=== PATIENT | male | born 1940 | race Caucasian/White ===

== ENCOUNTER 2022-01-18 10:32 | Emergency (ER) | payer MEDICARE, SELFPAY ==
--- NOTE | 2022-01-18 | CRLHL7_ITS ---
For Patients: As a result of the Cures Act, medical imaging exams and procedure reports are released immediately into your electronic medical record. You may view this report before your referring provider. If you have questions, please contact your health care provider. DATE: 01/18/2022. CLINICAL HISTORY: Vertigo and dizziness for several days. TECHNIQUE: Standard helical CT image acquisition through the head and neck was performed after intravenous contrast bolus enhancement. Multiplanar reconstructed images were performed and interpreted. COMPARISON: None available. FINDINGS: There is irregular atherosclerotic plaque within the aortic arch. The origins of the great vessels from the aortic arch are patent, noting mild to moderate stenosis at the origin of the left subclavian artery. Severe and moderate to severe stenosis at the origins of the left and right vertebral arteries, respectively. The common carotid arteries are patent. There is mild (<50%) atherosclerotic stenoses of the bilateral proximal ICAs by NASCET criteria. NASCET criteria. The more distal cervical segments of the internal carotid arteries are patent. The cervical segments of the vertebral arteries are patent. No intracranial proximal large vessel occlusion. Intracranial atherosclerotic disease with short-segment mild luminal stenoses of the proximal and mid P2 segments of the bilateral posterior cerebral arteries. No evidence of cerebral aneurysm or findings to suggest an arteriovenous shunting lesion. IMPRESSION: 1. Scattered intracranial atherosclerotic disease without proximal large vessel occlusion or flow-limiting luminal stenosis. 2. Mild (<50%) atherosclerotic stenoses of the bilateral proximal ICAs by NASCET criteria. 3. 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 Please note that all CT scans at this facility use dose modulation, iterative reconstruction, and/or weight-based dosing when appropriate to reduce radiation dose to as low as reasonably achievable. Dictated by Kirk Briscoe MD @ 01/18/2022 1:19:11 PM (Electronically Signed)
[2022-01-18 10:40] VITALS: BP 156/80; PULSE 77; RESP 18; TEMP 36.7; O2SAT 94; BMI 34.0
--- OUTSIDE RECORDS SUMMARY | 2022-01-18 11:14 | XMS_ITS | Encounter Summary ---
:1940 Author Organization [facility] Address [address] [place] [address] Care Team Providers Name Role Phone Unavailable Primary Care Provider Unavailable Reason for Referral Radiation Therapy (Routine) - Closed Specialty Diagnoses / Procedures Referred By Contact Refer red To Contact Diagnoses Primary Malignant Neoplasm Of Prostate (HCC) Enoch Beavers M.D. [facility] Procedures Management Visit [address] [place] [phone] Referral ID Status Reason Start Date Expiration Date Visits Requ ested Visits Authorized [id number] Closed 01/11/2021 01/11/2022 4 4 HEALTH AIDE CAREGIVER Reason for Visit Radiation Therapy (Routine) - Closed Specialty Diagnoses / Procedures Referred By Contact Refer red To Contact Diagnoses Primary Malignant Neoplasm Of Prostate (HCC) Enoch Beavers M.D. [facility] Procedures Management Visit [address] [place] [phone] Referral ID Status Reason Start Date Expiration Date Visits Requ ested Visits Authorized [id number] Closed 01/11/2021 01/11/2022 4 4 Encounter Details Date Type Department Care Team Description 04/11/2021 Hospital Encounter Department of Enoch Beavers Malignant Radiation Oncology [place] Neoplasm Of Prostate in [place], [address] [facility] (HCC) [place], [place] [address] [facility] [address] [place], [place] [phone] (Work) [phone] Social History Tobacco Use Types Packs/Day Years Used Date Smoking Tobacco: Never Assessed Sex Assigned at Date Recorded Not on file documented as of this encounter Last Filed Vital Signs Vital Sign Reading Time Taken Comments Blood Pressure - - Pulse - - Temperature 36.6 ??C (97.8 ??F) 04/11/2021 9:10 AM HOME HEALTH AIDE CAREGIVER Respiratory Rate - - Oxygen Saturation - - Inhaled Oxygen Concentration - - Weight 108 kg (237 lb 7 oz) 04/11/2021 9:10 AM HOME HEALTH AIDE CAREGIVER Height - - Body Mass Index 34.07 01/11/2021 3:00 PM CDT documented in this encounter Medications at Time of Discharge Medication Sig Dispensed Refills Start Date End Date acetaminophen (TYLENOL 8 Take 650 mg by mouth 0 HR) 650 mg ER tablet every morning. aspirin [address] tablet Take 81 mg by mouth. 0 betamethasone 0 03/01/2021 dipropionate, augmented, (DIPROLENE) 0.05 % cream coenzyme Q10 (CO Q-10) Take 10 mg by mouth. 0 10 mg capsule metFORMIN XR metformin ER 500 mg tablet,extended release 24 hr 0 07/13/2020 (GLUCOPHAGE-XR) 500 mg TAKE 1 TABLET BY MOUTH TWIC E A DAY . FOLLOWUP IN 2020. 24 hr tablet multivitamin tablet Take 1 tablet by mouth 0 daily. pantoprazole (PROTONIX) pantoprazole 40 mg tablet,delayed release 0 05/12/2012 40 mg EC tablet TAKE 1 TABLET BY MOUTH DAILY. rosuvastatin (CRESTOR) Take 10 mg by mouth 0 10 mg tablet daily. valsartan-hydroCHLOROthi valsartan 80 mg-hydrochlorothiazide 12.5 mg tablet 0 azide (DIOVAN-HCT) TAKE 1 TABLET BY MOUTH EVERY DAY 80-12.5 mg per tablet documented as of this encounter Progress Notes Enoch Beavers M.D. - 04/11/2021 9:15 AM CST SUBJECTIVE REASON FOR VISIT Evaluation for side effects while receiving radiation treatment for 1. Primary Malignant Neoplasm Of Prostate (HCC) SUPERVISED BY: Enoch Beavers M.D. ([id number]) HISTORY OF PRESENT ILLNESS Mr. Rudy Tejada is an 81 y.o. male with adenocarcinoma of the prostate. He is now undergoing radiotherapy. Treatment Course: 1x Prostate Plan ID Fractions Dose / Fraction (cGy) Dose Treated (cGy) Dose Planned (cGy) First Treatment Last Treatment Elapsed Days F1_Prostate 300 1500 6000 04/05/2021 04/11/2021 6 Course Summary 04/05/2021 04/11/2021 6 The patient was seen and examined today with Dr. Beavers. The patient reports that he is doing well. He feels fatigue in the morning. After treatment he eats meal and then fatigue improves. He denies any other new symptoms. PATIENT REPORTED SYMPTOM SCREEN FATIGUE (Scale: 0 = no fatigue; 10 = worst fatigue you can imagine): 0 PAIN (Scale: 0 = no pain; 10 = worst pain you can imagine): 0 OVERALL QUALITY OF LIFE (Scale: 0 = as bad as can be; 10 = as good as can be): 8 OBJECTIVE Temp 36.6 ??C (Temporal) Wt 108 kg BMI 34.07 kg/m?? PHYSICAL EXAM General: Alert and oriented in no apparent distress. ASSESSMENT / PLAN #1 Stage IIC (cT2c, cN0, cM0, PSA: 12.2, Grade Group: 3) adenocarcinoma of the prostate #2 Erectile dysfunction, preceding radiotherapy #3 Occasional overflow urinary incontinence #4 Obstructive uropathy #5 Androgen deprivation therapy initiated with Lupron 30 mg injection and bicalutamide 50 mg daily for 3 weeks on January 16, 2021 with no further therapy planned #6 Intensity modulated radiotherapy to the prostate and proximal seminal vesicles initiated on April 05, 2021; anticipated completion on May 03, 2021 The patient is tolerating radiation treatment well overall. We will continue to see patient in weekly management visits. He will contact us with any questions or concerns. We will continue with radiation treatment as planned. Signed by: Esther Johnston R.N. 04/11/2021 9:14 AM HOME HEALTH AIDE CAREGIVER I saw and evaluated the patient and participated in the kelley portions of the service. I reviewed the documentation of Esther Johnston R.N. and agree with the findings and plan. The patient appears well onexam. He will continue with treatment as planned. Signed by: Enoch Beavers M.D. 04/11/2021 2:02 PM HOME HEALTH AIDE CAREGIVER [facility] [address] [place] [address] HEALTH AIDE CAREGIVER documented in this encounter Plan of Treatment Scheduled Orders Name Type Priority Associated Diagnoses Order S chedule Management Visit Radiation Oncology Routine Primary Malignant Once for 1 Neoplasm Of Prostate Occurre nces starting (HCC) 04/11/2021 unti l 04/11/2021 documented as of this encounter Visit Diagnoses Diagnosis Primary Malignant Neoplasm Of Prostate ( HCC) documented in this encounter
--- OUTSIDE RECORDS SUMMARY | 2022-01-18 11:14 | XMS_ITS | Clinical Summary ---
:1940 Author Organization [email or web address] [place] [address] Care Team Providers Name Role Phone Nonstaff, Doctor Primary Care Provider Unavailable Allergies No known active allergies Medications Medication Sig Dispensed Refills Start Date End Date Status valsartan-hydrochloroth Take 1 tablet by 0 Active iazide, 80-12.5 mg, mouth once daily. (DIOVAN HCT) 80-12.5 mg tablet multivitamin (MVI) Take 1 tablet by 0 Active tablet mouth once daily. Coenzyme Q10 10 mg cap Take 10 mg by 0 Active mouth once daily. cholecalciferol Take 5,000 Units 0 Active (VITAMIN D) 1,000 unit by mouth once tablet daily. pantoprazole (PROTONIX) Take 1 tablet by 90 tablet 3 3 Active 40 mg tablet mouth once daily. aspirin 81 mg tablet Take 1 tablet by 0 05/12/2012 Active mouth once daily with a meal. metFORMIN (GLUCOPHAGE TAKE 1 TAB BY 0 07/13/2020 Active XR) 500 mg MOUTH TWICE A DAY Extended-Release tablet rosuvastatin (CRESTOR) Take 10 mg by 0 07/14/2020 Active 10 mg tablet mouth once daily. bicalutamide (CASODEX) PLEASE SEE 0 01/12/2021 Active 50 mg tablet ATTACHED FOR DETAILED DIRECTIONS Hospital, Clinic, or Ordered Dose Route Frequency Start Date End D ate Status Other Facility Administered Medication leuprolide (4 month) 30 mg IM Q 4 MONTHS (16 01/16/202109/2021 Active (LUPRON DEPOT) WEEKS) injection 30 mgIndications: Primary malignant neoplasm of prostate (HC) Active Problems Problem Noted Date CVA (cerebral infarction) 05/12/2012 Numbness 05/11/2012 Leg weakness 05/11/2012 HTN (hypertension) 05/11/2012 BPH (benign prostatic hypertrophy) 05/11/2012 Overview: Follow with [facility] JANINA (obstructive sleep apnea) 05/11/2012 Overview: Has cpap, doesn't use Other and unspecified hyperlipidemia 05/11/2012 ACP (advance care planning) 05/11/2012 Overview: Patient has identified Health Care Agent (s): No Add Health Care Agents: No Patient has Advance Care Plan Documents (Health Care Directive, POLST): No, . Patient has identified Specific Treatmen t Preferences: Yes Specific Treatment Preferences: a.) Code Status: CPR/Attempt Resuscitation Cough 05/11/2012 Family History Medical History Relation Name Comments Other Sister zhen aneurysm Relation Name Status Comments Sister Social History Tobacco Use Types Packs/Day Years Used Date Former Smoker Cigarettes 1 30 Quit: 05/06/18 83 Alcohol Use Standard Drinks/Week Comments Yes 0 (1 standard drink = 0.6 oz pure occass ional. Hx of alcohol abuse, alcohol) quit in 1981, now oc cassional Alcohol Habits Answer Date Recorded How often do you have a drink Not asked containing alcohol? How many drinks containing alcohol Not asked do you have on a typical day when you are drinking? How often do you have six or more Not asked drinks on one occasion? Comment: occassional. Hx of alcohol abuse, 2012 quit in 1981, now occassional Sex Assigned at Date Recorded Not on file Obstetrics History Last Filed Vital Signs Vital Sign Reading Time Taken Comments Blood Pressure 133/79 01/16/2021 11:21 AM CDT Pulse 79 01/16/2021 11:21 AM CDT Temperature 36.7 ??C (98 ??F) 05/12/2012 8:00 AM SLEEVE TURNER Respiratory Rate 16 05/12/2012 8:00 AM SLEEVE TURNER Oxygen Saturation 94% 01/16/2021 11:21 AM CDT Inhaled Oxygen Concentration - - Weight 108.6 kg (239 lb 8 oz) 01/16/2021 11:21 AM CDT Height 177.8 cm (5' 10) 05/11/2012 2:47 PM SLEEVE TURNER Body Mass Index 34.36 05/11/2012 2:47 PM SLEEVE TURNER Plan of Treatment Health Maintenance Due Date Last Done Comments Tdap 1952 Depression screening for age 12+ 1953 BMI (ht and wt on same day) for age 18+ 1959 Tetanus booster 1961 Zoster (shingles) series for age 50+ (1 of 1991 2) Medicare Wellness for age 65+ 2006 Pneumococcal series for age 65+ (1 - PCV) 2006 COVID-19 vaccine series (3 - Booster for 12/09/2020 021, 06/18/2020 Pfizer series) Influenza for age 65+ 01/04/2022 Results Not on filefrom Last 3 Months Insurance Payer Benefit Plan / Subscriber ID Effective Dates Phone Addre ss Type Group MEDICARE PART A MEDICARE PART A [id number] 2006-Presen ATTN: CLAIMS - HB USE ONLY HB ONLY t [address] [place] [address] [employer] CHOICE [id number] 2019-Present [address] [address] [place] [address] (Work) [phone] Advance Directives Latest Code Status on File Code Status Date Activated Date Inactivated Comments Full Code 05/11/2012 6:11 PM 05/12/2012 1:45 PM Care Teams Consultant Nurse Relationship Specialty Start Date End Date Nonstaff, Doctor PCP - General 05/16/12 NON STAFF DOCTOR
--- OUTSIDE RECORDS SUMMARY | 2022-01-18 11:14 | XMS_ITS | Encounter Summary ---
:1940 Author Organization [facility] Address [address] [place] [address] Care Team Providers Name Role Phone Unavailable Primary Care Provider Unavailable Reason for Visit Radiation Therapy (Routine) - Closed Specialty Diagnoses / Procedures Referred By Contact Refer red To Contact Diagnoses Primary Malignant Neoplasm Of Prostate (HCC) Enoch Beavers M.D. [facility] Procedures Prior Auth Rad Tx [place] IMRT SIMPLE [address] [place] [address] Referral ID Status Reason Start Date Expiration Date Visits Requ ested Visits Authorized [id number] Closed 03/30/2021 01/11/2022 26 26 Encounter Details Date Type Department Care Team Description 04/10/2021 Hospital Encounter Department of Radiation Jessica Beavers, [place] [address] [place] [phone] Social History Tobacco Use Types Packs/Day Years Used Date Smoking Tobacco: Never Assessed Sex Assigned at Date Recorded Not on file documented as of this encounter Medications at Time of Discharge [...] per tablet documented as of this encounter Plan of Treatment Not on filedocumented as of this encounter Visit Diagnoses Not on filedocumented in this encounter
--- OUTSIDE RECORDS SUMMARY | 2022-01-18 11:14 | XMS_ITS | Encounter Summary ---
:1940 Author Organization [facility] Address [address] [place] [address] Care Team Providers Name Role Phone Unavailable Primary Care Provider Unavailable Reason for Visit Radiation Therapy (Routine) - Closed Specialty Diagnoses / Procedures Referred By Contact Refer red To Contact Diagnoses Primary Malignant Neoplasm Of Prostate (HCC) Enoch Beavers M.D. [facility] Procedures Prior Auth Rad Tx [place] IMRT SIMPLE [address] [place] [address] Referral ID Status Reason Start Date Expiration Date Visits Requ ested Visits Authorized [id number] Closed 03/30/2021 01/11/2022 26 26 Encounter Details Date Type Department Care Team Description 05/02/2021 Hospital Encounter Department of Radiation Jessica Beavers, [place]cology [place] [address] [place] [phone] Social History Tobacco Use Types Packs/Day Years [...]
--- OUTSIDE RECORDS SUMMARY | 2022-01-18 11:14 | XMS_ITS | Encounter Summary ---
:1940 Author Organization [facility] Address [address] [place] [address] Care Team Providers Name Role Phone Unavailable Primary Care Provider Unavailable Reason for Visit Radiation Therapy (Routine) - Closed Specialty Diagnoses / Procedures Referred By Contact Refer red To Contact Diagnoses Primary Malignant Neoplasm Of Prostate (HCC) Enoch Beavers M.D. [facility] Procedures Prior Auth Rad Tx [place] IMRT SIMPLE [address] [place] [address] Referral ID Status Reason Start Date Expiration Date Visits Requ ested Visits Authorized [id number] Closed 03/30/2021 01/11/2022 26 26 Encounter Details Date Type Department Care Team Description 04/12/2021 Hospital Encounter Department of Radiation Jessica Beavers, [place]cology [place] [address] [place] [phone] Social History Tobacco Use Types Packs/Day Years [...]
--- OUTSIDE RECORDS SUMMARY | 2022-01-18 11:14 | XMS_ITS | Encounter Summary ---
:1940 Author Organization [facility] Address [address] [place] [address] Care Team Providers Name Role Phone Unavailable Primary Care Provider Unavailable Reason for Visit Reason Comments Med Refill Encounter Details Date Type Department Care Team Description 07/30/2021 Refill Department of Radiation Enoch Beavers M.D. Med Refill Oncology in [place], [address] [place] [phone] [address] [place] [address] [phone] Social History Tobacco Use Types Packs/Day Years Used Date Smoking Tobacco: Never Assessed Sex Assigned at Date Recorded Not on file documented as of this encounter Plan of Treatment Not on filedocumented as of this encounter Visit Diagnoses Not on filedocumented in this encounter
--- OUTSIDE RECORDS SUMMARY | 2022-01-18 11:14 | XMS_ITS ---
:1940 Author Organization [facility] Address [address] [place] [address] Care Team Providers Name Role Phone Unavailable Primary Care Provider Unavailable Active Problems Problem Noted Date Primary Malignant Neoplasm Of Prostate 01/10/2021 Cancer Staging: Clinical stage from 2020: Stage IIC (cT2c, cN0, cM0, PSA: 12.2, Grade Group: 3) - Unsigned Current Oncology Plans No current plan information found. Past Plans No past plan information found. Radiation Treatments Plan Last Treated Elapsed Days Fractions Prescribed Prescribed Total On Treated Fraction Dose Dose F1_Prostate 05/03/2021 28 20 of 20 300 cGy 6,000 cGy Reference Point Last Treated On Elapsed Days Session Dose Total Dos e [id number] 05/03/2021 28 300 cGy 6,000 cGy
--- OUTSIDE RECORDS SUMMARY | 2022-01-18 11:14 | XMS_ITS | Encounter Summary ---
:1940 Author Organization [facility] Address [address] [place] [address] Care Team Providers Name Role Phone Unavailable Primary Care Provider Unavailable Reason for Visit Radiation Therapy (Routine) - Closed Specialty Diagnoses / Procedures Referred By Contact Refer red To Contact Diagnoses Primary Malignant Neoplasm Of Prostate (HCC) Enoch Beavers M.D. [facility] Procedures Prior Auth Rad Tx [place] IMRT SIMPLE [address] [place] [address] Referral ID Status Reason Start Date Expiration Date Visits Requ ested Visits Authorized [id number] Closed 03/30/2021 01/11/2022 26 26 Encounter Details Date Type Department Care Team Description 04/19/2021 Hospital Encounter Department of Radiation Jessica Beavers, [place]cology in [place] [address] [place] [phone] Social History Tobacco Use Types Packs/Day Years [...]
--- OUTSIDE RECORDS SUMMARY | 2022-01-18 11:14 | XMS_ITS | Encounter Summary ---
:1940 Author Organization [facility] Address [address] [place] [address] Care Team Providers Name Role Phone Unavailable Primary Care Provider Unavailable Reason for Visit Radiation Therapy (Routine) - Closed Specialty Diagnoses / Procedures Referred By Contact Refer red To Contact Diagnoses Primary Malignant Neoplasm Of Prostate (HCC) Enoch Beavers M.D. [facility] Procedures Prior Auth Rad Tx CT IMRT SIMPLE [address] [place] [address] Referral ID Status Reason Start Date Expiration Date Visits Requ ested Visits Authorized [id number] Closed 03/30/2021 01/11/2022 26 26 Encounter Details Date Type Department Care Team Description 04/20/2021 Hospital Encounter Department of Radiation Jessica Beavers, [place]cology [place] [address] [place] [phone] Social History Tobacco Use Types Packs/Day Years [...]
--- OUTSIDE RECORDS SUMMARY | 2022-01-18 11:14 | XMS_ITS | Encounter Summary ---
:1940 Author Organization [facility] Address [address] [place] [address] Care Team Providers Name Role Phone Unavailable Primary Care Provider Unavailable Reason for Visit Reason Comments Results Encounter Details Date Type Department Care Team Description 11/09/2021 Clinical Communication Department of Radiation Pedro Rivero, Results Oncology in [facility] [address] [facility] [address] [place] [phone] Social History Tobacco Use Types Packs/Day Years Used Date Smoking Tobacco: Never Assessed Sex Assigned at Date Recorded Not on file documented as of this encounter Miscellaneous Notes Telephone Encounter - Marya Rivero R.N. - 11/09/2021 2:29 PM CDT You recently had a prostate-specific [facility] (PSA[facility] [place] [place] Please note the results below: PSA 0.82 ng/mL This represents a low, stable PSA level. At present, no further evaluation is needed, however, it isbest to continue monitoring your PSA level routinely. The plan is to next check your PSA level at [facility] in [place], [place] prior to your next visit with Dr. Beavers in April of 2022. We hope that you are doing well and look forward to continuing to participate in your medical care. Please contact our office if you have additional questions or concerns. Telephone Encounter - Marya Rivero R.N. - 11/09/2021 2:29 PM CDT ----- Message from Petra King sent at 11/01/2021 8:23 AM CDT ----- Regarding: PSA Patient had PSA drawn 10/27. Results are scanned into the document viewer. He is to be contacted withresults. PSA = 0.82 documented in this encounter Plan of Treatment Not on filedocumented as of this encounter Visit Diagnoses Not on filedocumented in this encounter
--- OUTSIDE RECORDS SUMMARY | 2022-01-18 11:14 | XMS_ITS | Encounter Summary ---
:1940 Author Organization [facility] Address [address] [place] [address] Care Team Providers Name Role Phone Unavailable Primary Care Provider Unavailable Reason for Visit Radiation Therapy (Routine) - Closed Specialty Diagnoses / Procedures Referred By Contact Refer red To Contact Diagnoses Primary Malignant Neoplasm Of Prostate (HCC) Enoch Beavers M.D. [facility] Procedures Prior Auth Rad Tx CT IMRT SIMPLE [address] [place] [address] Referral ID Status Reason Start Date Expiration Date Visits Requ ested Visits Authorized [id number] Closed 03/30/2021 01/11/2022 26 26 Encounter Details Date Type Department Care Team Description 04/11/2021 Hospital Encounter Department of Radiation Jessica Beavers, [place]cology [place] [address] [place] [phone] Social History Tobacco Use Types Packs/Day Years [...]
--- OUTSIDE RECORDS SUMMARY | 2022-01-18 11:14 | XMS_ITS | Encounter Summary ---
:1940 Author Organization [facility] Address [address] [place] [address] Care Team Providers Name Role Phone Unavailable Primary Care Provider Unavailable Reason for Visit Radiation Therapy (Routine) - Closed Specialty Diagnoses / Procedures Referred By Contact Refer red To Contact Diagnoses Primary Malignant Neoplasm Of Prostate (HCC) Enoch Beavers M.D. [facility] Procedures Prior Auth Rad Tx [place] IMRT SIMPLE [address] [place] [address] Referral ID Status Reason Start Date Expiration Date Visits Requ ested Visits Authorized [id number] Closed 03/30/2021 01/11/2022 26 26 Encounter Details Date Type Department Care Team Description 04/14/2021 Hospital Encounter Department of Radiation Jessica Beavers, [place] [address] [place] [address] [phone] Social History Tobacco Use Types Packs/Day Years [...]
--- OUTSIDE RECORDS SUMMARY | 2022-01-18 11:14 | XMS_ITS | Encounter Summary ---
:1940 Author Organization [facility] Address [address] [place] [address] Care Team Providers Name Role Phone Unavailable Primary Care Provider Unavailable Reason for Referral Outpatient (Routine) - Authorized Specialty Diagnoses / Procedures Referred By Contact Refer red To Contact Radiation Oncology Diagnoses Primary Malignant Neoplasm Of Prostate (HCC) Zahraa Duong P.A.-C., [facility] Angeles Avalos M.S. [address] [place] [phone] Referral ID Status Reason Start Date Expiration Date Visits V isits Requested Authorized [id number] Authorized 11/09/2021 11/09/2022 1 1 Encounter Details Date Type Department Care Team Description 11/09/2021 Orders Only Department of Radiation Marya Rivero Pri mary Malignant Oncology in [facility] Neoplasm Of Prostate [address] (HCC) (Primary Dx) [address] [place] [phone] Social History Tobacco Use Types Packs/Day Years Used Date Smoking Tobacco: Never Assessed Sex Assigned at Date Recorded Not on file documented as of this encounter Plan of Treatment Scheduled Orders Name Type Priority Associated Diagnoses Order S chedule PSA (Prostate-Specific Lab Routine Primary Malignant Expected: 04/02/2022 Antigen), Diagnostic Neoplasm Of Prostate (Approximate), (HCC) Expires: 2022 Scheduled Referrals Name Type Priority Associated Diagnoses Order S chedule Radiation Oncology Outpatient Referral Routine Primary Maligna nt Expected: office visit Neoplasm Of Prostate 022 (clinic) (HCC) (Approximate), Expires: 11/09/2022 documented as of this encounter Visit Diagnoses Diagnosis Primary Malignant Neoplasm Of Prostate ( HCC) - Primary documented in this encounter
--- OUTSIDE RECORDS SUMMARY | 2022-01-18 11:14 | XMS_ITS | Encounter Summary ---
:1940 Author Organization [facility] Address [address] [place] [address] Care Team Providers Name Role Phone Unavailable Primary Care Provider Unavailable Reason for Referral Outpatient (Routine) - Closed Specialty Diagnoses / Procedures Referred By Contact Refer red To Contact Radiation Oncology Enoch Beavers M .D. [facility] [address] [place] [address] Referral ID Status Reason Start Date Expiration Date Visits Requ ested Visits Authorized [id number] Closed 04/25/2021 04/25/2022 1 1 OR ACTUARIAL ANALYST Radiation Therapy (Routine) - Closed Specialty Diagnoses / Procedures Referred By Contact Refer red To Contact Diagnoses Primary Malignant Neoplasm Of Prostate (HCC) Enoch Beavers M.D. [facility] Procedures Management Visit [address] [place] [address] Referral ID Status Reason Start Date Expiration Date Visits Requ ested Visits Authorized [id number] Closed 01/11/2021 01/11/2022 4 4 OR ACTUARIAL ANALYST Reason for Visit Radiation Therapy (Routine) - Closed Specialty Diagnoses / Procedures Referred By Contact Refer red To Contact Diagnoses Primary Malignant Neoplasm Of Prostate (HCC) nEoch Beavers [facility].D. [facility] Procedures Management Visit [address] [place] [address] Referral ID Status Reason Start Date Expiration Date Visits Requ ested Visits Authorized [id number] Closed 01/11/2021 01/11/2022 4 4 Encounter Details Date Type Department Care Team Description 04/25/2021 Hospital Encounter Department of Enoch Beavers Malignant Radiation Oncology [place] Neoplasm Of Prostate in [place], [facility] [address] (HCC) [place], [place] [address] [facility] [address] [place], [place] [phone] (Work) [phone] Social History Tobacco Use Types Packs/Day Years Used Date Smoking Tobacco: Never Assessed Sex Assigned at Date Recorded Not on file documented as of this encounter Last Filed Vital Signs Vital Sign Reading Time Taken Comments Blood Pressure - - Pulse - - Temperature 36.6 ??C (97.8 ??F) 04/25/2021 3:29 PM SENIOR ACTUARIAL ANALYST Respiratory Rate - - Oxygen Saturation - - Inhaled Oxygen Concentration - - Weight 107 kg (236 lb 15.9 oz) 04/25/2021 3:29 PM SENIOR ACTUARIAL ANALYST Height - - Body Mass Index 34.01 01/11/2021 3:00 PM CDT documented in this [...] encounter Progress Notes Enoch Beavers M.D. - 04/25/2021 3:15 PM CST SUBJECTIVE REASON FOR VISIT Evaluation for side effects while receiving radiation treatment for 1. Primary Malignant Neoplasm Of Prostate (HCC) SUPERVISED BY: Dr. Beavers HISTORY OF PRESENT ILLNESS Mr. Rudy Tejada is an 81 y.o. male with adenocarcinoma of the prostate. He is now undergoing radiotherapy. Treatment Course: 1x Prostate Plan ID Fractions Dose / Fraction (cGy) Dose Treated (cGy) Dose Planned (cGy) First Treatment Last Treatment Elapsed Days F1_Prostate [phone] 04/05/2021 04/25/2021 Course Summary 04/05/2021 04/25/2021 20 The patient was seen and examined today with Dr. Beavers. The patient reports that he is doing well. He experienced diarrhea last night related to his dietaryintake. He denies hematuria, rectal bleeding or dysuria. Nocturia has increased to 3 times at night but this does not bother patient. PATIENT REPORTED SYMPTOM SCREEN FATIGUE (Scale: 0 = no fatigue; 10 = worst fatigue you can imagine): 1 PAIN (Scale: 0 = no pain; 10 = worst pain you can imagine): 1 OVERALL QUALITY OF LIFE (Scale: 0 = as bad as can be; 10 = as good as can be): good OBJECTIVE Temp 36.6 ??C (Temporal) Wt 107 kg BMI 34.01 kg/m?? PHYSICAL EXAM General: Alert and oriented [...] to see patient in weekly management visits. Dr. Beavers will see patient in 3 months in follow up visit. We will check a PSA and testosterone 3 days ahead of time at [facility]. Dr. Upton will see patient in last management visit next week. He will contact us with any questions or concerns. We will continue with radiation treatment as planned. Signed by: Esther Johnston R.N. 04/25/2021 3:51 PM SENIOR ACTUARIAL ANALYST I saw and evaluated the patient and participated in the kelley portions of the service. I reviewed the documentation of Esther Johnston R.N. and agree with the findings and plan. The patient appears well onexam. He is tolerating treatment well. I will plan to see him in 3 months after treatment completionwith the pre- visit PSA and testosterone 3 days in advance. He will continue with treatments as planned. Signed by: Enoch Beavers M.D. 04/25/2021 5:59 PM SENIOR ACTUARIAL ANALYST [facility] [address] [place] [address] OR ACTUARIAL ANALYST documented in this encounter Plan of Treatment Scheduled Orders Name Type Priority Associated Diagnoses Order S chedule Management Visit Radiation Oncology Routine Primary Malignant Once for 1 Neoplasm Of Prostate Occurre nces starting (HCC) 04/25/2021 unti l 04/25/2021 Scheduled Referrals Name Type Priority Associated Diagnoses Order S chedule Radiation Oncology Outpatient Referral Routine Ex pected: office visit 07/24/2021 (clinic) (Approximate), Expires: 04/25/2022 documented as of this encounter Visit Diagnoses Diagnosis Primary Malignant Neoplasm Of Prostate ( HCC) documented in this encounter
--- OUTSIDE RECORDS SUMMARY | 2022-01-18 11:14 | XMS_ITS | Encounter Summary ---
:1940 Author Organization [facility] Address [address] [place] [address] Care Team Providers Name Role Phone Unavailable Primary Care Provider Unavailable Reason for Visit Radiation Therapy (Routine) - Closed Specialty Diagnoses / Procedures Referred By Contact Refer red To Contact Diagnoses Primary Malignant Neoplasm Of Prostate (HCC) Enoch Beavers M.D. [facility] Procedures Prior Auth Rad Tx [place] IMRT SIMPLE [address] [place] [address] Referral ID Status Reason Start Date Expiration Date Visits Requ ested Visits Authorized [id number] Closed 03/30/2021 01/11/2022 26 26 Encounter Details Date Type Department Care Team Description 04/27/2021 Hospital Encounter Department of Radiation Jessica Beavers, [place] [id number] [place] [phone] Social History Tobacco Use Types Packs/Day Years [...]
--- OUTSIDE RECORDS SUMMARY | 2022-01-18 11:14 | XMS_ITS | Encounter Summary ---
:1940 Author Organization [facility] Address [address] [place] [address] Care Team Providers Name Role Phone Unavailable Primary Care Provider Unavailable Reason for Visit Radiation Therapy (Routine) - Closed Specialty Diagnoses / Procedures Referred By Contact Refer red To Contact Diagnoses Primary Malignant Neoplasm Of Prostate (HCC) Enoch Beavers M.D. [facility] Procedures Prior Auth Rad Tx [place] IMRT SIMPLE [address] [place] [address] Referral ID Status Reason Start Date Expiration Date Visits Requ ested Visits Authorized [id number] Closed 03/30/2021 01/11/2022 26 26 Encounter Details Date Type Department Care Team Description 05/01/2021 Hospital Encounter Department of Radiation Jessica Beavers, [place]cology [place] [address] [place] [phone] Social History Tobacco Use Types Packs/Day Years [...]
--- OUTSIDE RECORDS SUMMARY | 2022-01-18 11:14 | XMS_ITS | Encounter Summary ---
:1940 Author Organization [facility] Address [address] [place] [address] Care Team Providers Name Role Phone Unavailable Primary Care Provider Unavailable Reason for Visit Radiation Therapy (Routine) - Closed Specialty Diagnoses / Procedures Referred By Contact Refer red To Contact Diagnoses Primary Malignant Neoplasm Of Prostate (HCC) Enoch Beavers M.D. [facility] Procedures Prior Auth Rad Tx [place] IMRT SIMPLE [address] [place] [address] Referral ID Status Reason Start Date Expiration Date Visits Requ ested Visits Authorized [id number] Closed 03/30/2021 01/11/2022 26 26 Encounter Details Date Type Department Care Team Description 04/18/2021 Hospital Encounter Department of Radiation Jessica Beavers, [place] [address] [place] [phone] Social History Tobacco Use Types Packs/Day Years [...]
--- OUTSIDE RECORDS SUMMARY | 2022-01-18 11:14 | XMS_ITS | Encounter Summary ---
:1940 Author Organization [facility] Address [address] [place] [address] Care Team Providers Name Role Phone Unavailable Primary Care Provider Unavailable Reason for Referral Radiation Therapy (Routine) - Closed Specialty Diagnoses / Procedures Referred By Contact Refer red To Contact Diagnoses Primary Malignant Neoplasm Of Prostate (HCC) Enoch Beavers M.D. [facility] Procedures Management Visit [address] [place] [phone] Referral ID Status Reason Start Date Expiration Date Visits Requ ested Visits Authorized [id number] Closed 01/11/2021 01/11/2022 4 4 S CUTTER Reason for Visit Radiation Therapy (Routine) - Closed Specialty Diagnoses / Procedures Referred By Contact Refer red To Contact Diagnoses Primary Malignant Neoplasm Of Prostate (HCC) Enoch Beavers M.D. [facility] Procedures Management Visit [address] [place] [phone] Referral ID Status Reason Start Date Expiration Date Visits Requ ested Visits Authorized [id number] Closed 01/11/2021 01/11/2022 4 4 Encounter Details Date Type Department Care Team Description 04/18/2021 Hospital Encounter Department of Jennifer Upton Malignant Radiation Oncology [place] Neoplasm Of Prostate in [place], [address] [place] [address] (HCC) [place], [place] [address] [facility] [address] [place], [place] [phone] (Work) [phone] Social History Tobacco Use Types Packs/Day Years Used Date Smoking Tobacco: Never Assessed Sex Assigned at Date Recorded Not on file documented as of this encounter Last Filed Vital Signs Vital Sign Reading Time Taken Comments Blood Pressure - - Pulse - - Temperature 36.2 ??C (97.1 ??F) 04/18/2021 3:23 PM BRASS CUTTER Respiratory Rate - - Oxygen Saturation - - Inhaled Oxygen Concentration - - Weight 107 kg (235 lb 7.2 oz) 04/18/2021 3:23 PM BRASS CUTTER Height - - Body Mass Index 33.78 01/11/2021 3:00 PM CDT documented in this [...] documented as of this encounter Progress Notes Jennifer Upton M.D. - 04/18/2021 3:15 PM CST ATTESTATION FOR MANAGEMENT VISIT I saw and evaluated the patient and participated in the kelley portions of the service as noted below. I reviewed the documentation of Ms. Esther Johnston RN and agree with the findings and plan. The patient appears well on exam. We will continue with radiation as planned and monitor weekly. Jennifer Upton M.D., 04/18/2021 SUBJECTIVE REASON FOR VISIT Evaluation for side effects while receiving radiation treatment for 1. Primary Malignant Neoplasm Of Prostate (HCC) SUPERVISED BY: Dr. Upton HISTORY OF PRESENT ILLNESS Mr. Rudy Tejada is an 81 y.o. male with adenocarcinoma of the prostate. He is now undergoing radiotherapy. Treatment Course: 1x Prostate Plan ID Fractions Dose / Fraction (cGy) Dose Treated (cGy) Dose Planned (cGy) First Treatment Last Treatment Elapsed Days F1_Prostate 300 3000 6000 04/05/2021 04/18/2021 13 Course Summary 04/05/2021 04/18/2021 13 The patient was seen and examined today with Dr. Upton. The patient reports that he is doing well. He experienced diarrhea last night related to his dietaryintake. He denies urinary changes, hematuria, rectal bleeding or dysuria. He denies any other new symptoms. PATIENT REPORTED SYMPTOM SCREEN FATIGUE (Scale: 0 = no fatigue; 10 = worst fatigue you can imagine): 0 PAIN (Scale: 0 = no pain; 10 = worst pain you can imagine): 0 OVERALL QUALITY OF LIFE (Scale: 0 = as bad as can be; 10 = as good as can be): 8 OBJECTIVE Temp 36.2 ??C (Temporal) Wt 107 kg BMI 33.78 kg/m?? PHYSICAL EXAM General: Alert and oriented [...] as planned. Signed by: Esther Johnston R.N. 04/18/2021 3:32 PM BRASS CUTTER S CUTTER documented in this encounter Plan of Treatment Scheduled Orders Name Type Priority Associated Diagnoses Order S chedule Management Visit Radiation Oncology Routine Primary Malignant Once for 1 Neoplasm Of Prostate Occurre nces starting (HCC) 04/18/2021 unti l 04/18/2021 documented as of this encounter Visit Diagnoses Diagnosis Primary Malignant Neoplasm Of Prostate ( HCC) documented in this encounter
--- OUTSIDE RECORDS SUMMARY | 2022-01-18 11:14 | XMS_ITS | Encounter Summary ---
:1940 Author Organization [facility] Address [address] [place] [address] Care Team Providers Name Role Phone Unavailable Primary Care Provider Unavailable Encounter Details Date Type Department Care Team Description 06/14/2021 Clinical Communication Department of Lesly Paul Radiation Oncology in [address] [place] [address] [address] [place] [phone] Social History Tobacco Use Types Packs/Day Years Used Date Smoking Tobacco: Never Assessed Sex Assigned at Date Recorded Not on file documented as of this encounter Plan of Treatment Not on filedocumented as of this encounter Visit Diagnoses Not on filedocumented in this encounter
--- OUTSIDE RECORDS SUMMARY | 2022-01-18 11:14 | XMS_ITS | Encounter Summary ---
:1940 Author Organization [facility] Address [address] [place] [address] Care Team Providers Name Role Phone Unavailable Primary Care Provider Unavailable Reason for Referral Outpatient (Routine) - Closed Specialty Diagnoses / Procedures Referred By Contact Refer red To Contact Radiation Oncology Enoch Beavers M .D. [address] [address] Referral ID Status Reason Start Date Expiration Date Visits Requ ested Visits Authorized [id number] Closed 04/25/2021 04/25/2022 1 1 Reason for Visit Outpatient (Routine) - Closed Specialty Diagnoses / Procedures Referred By Contact Refer red To Contact Radiation Oncology Enoch Beavers M .D. [address] [address] Referral ID Status Reason Start Date Expiration Date Visits Requ ested Visits Authorized [id number] Closed 04/25/2021 04/25/2022 1 1 Encounter Details Date Type Department Care Team Description 08/03/2021 - Hospital Encounter Department of [place]ann, Primary Malignant 08/04/2021 Radiation Oncology Enoch Hamilton M.D. Neoplasm Of Prostate in [address] (HCC) (Primary Dx) [place], [place] [address] [facility] [address] [place], [place] [phone] (Work) [phone] Social History Tobacco Use Types Packs/Day Years Used Date Smoking Tobacco: Never Assessed Sex Assigned at Date Recorded Not on file documented as of this encounter Last Filed Vital Signs Vital Sign Reading Time Taken Comments Blood Pressure 166/68 08/03/2021 2:45 PM CDT Pulse 79 08/03/2021 2:45 PM CDT Temperature 36.4 ??C (97.5 ??F) 08/03/2021 2:45 PM CDT Respiratory Rate - - Oxygen Saturation - - Inhaled Oxygen Concentration - - Weight 110 kg (242 lb 15.2 oz) 08/03/2021 2:45 PM CDT Height - - Body Mass Index 34.86 01/11/2021 3:00 PM CDT documented in this [...] documented as of this encounter Progress Notes Zahraa Duong P.A.-Felix., M.S. - 08/03/2021 3:00 PM CDT SUBJECTIVE DIAGNOSIS 1. Primary Malignant Neoplasm Of Prostate (HCC) SUPERVISED BY: Enoch Beavers M.D. ([id number]) HISTORY OF PRESENT ILLNESS Mr. Rudy Tejada is an 81-year-old male with adenocarcinoma of the prostate. ??He completed IMRT tothe prostate and proximal seminal vesicles on May 03, 2021. His oncologic history is as follows: 1. April 06, 2019: ??PSA 4.89 ng/mL 2. January 06, 2020: ??PSA 5.91 ng/mL 3. July 28, 2020: ??PSA 7.41 ng/mL 4. August 31, 2020: ??Consultation with Dr. Josiah Joshi where digital rectal examination demonstrated a 20 mL prostate that was asymmetric with firmness to the right lateral lobe. ??Recommended repeating a PSA. ??Plan for biopsy. 5. August 31, 2020: ??PSA 12.24 ng/mL 6. October 04, 2020: ??Prostate biopsy was performed by Dr. Joshi. ??Rectal exam was asymmetric. ??Twelve biopsies were performed. ??Pathology of the left lateral base of the prostate demonstrated adenocarcinoma, Alcon 3+4=7, involving 40% of the length of the core, perineural invasion not seen. ??Pathology of the left lateral apex of the prostate demonstrated adenocarcinoma, Alcon 3+3=6, discontinuously involving 40% of the length of the core, perineural invasion not seen. ??Pathology of the left base of the prostate demonstrated adenocarcinoma, Alcon 3+4=7, involving 90% of the length of the core, perineural invasion not seen. ??Pathology of the left mid of the prostate demonstrated adenocarcinoma, [place] 4+3=7, involving 25% of the length of the core, perineural invasion not seen. ??Pathology of the left apex of the prostate demonstrated adenocarcinoma, Alcon 3+3=6, involving 10% of the length of the core, perineural invasion not seen. ??Pathology of the right mid of the prostate demonstrated adenocarcinoma, Alcon 3+4=7, involving 20% of the length of the core, perineural invasion not seen. ??Pathology of the right apex of the prostate demonstrated adenocarcinoma, Alcon 3+4=7, involving 20% of the length of the core, perineural invasion not seen. ??Pathology of the right lateral mid of the prostate demonstrated adenocarcinoma, [place] 3+4=7, involving 40% of the length of the core, perineural invasion present. ??Pathology of the left lateral mid of the prostate demonstrated atypical small acinar proliferation, highly suspicious for malignancy. ??Pathology of the right base andright lateral base of the prostate demonstrated benign prostatic tissue. 7. November 10, 2020: ??Nuclear medicine whole-body bone scan demonstrated prominent activity identified in the region of the right shoulder. ??Areas of activity identified posteriorly throughout the cervical, thoracic, and lumbar spine which were favored to be degenerative. ??Photopenic activity in the left shoulder presumably from a left shoulder arthroplasty. 8. November 10, 2020: ??CT scan of the abdomen and pelvis demonstrated no evidence of metastatic disease.??3.7 cm abdominal aortic aneurysm. ??Incidental multiple simple intrahepatic cysts. ??Extensive chronic sigmoid diverticulosis. 9. December 26, 2020: ??Consultation with Dr. Reji Espino who did not recommend surgery given the patient's advanced age and elevated BMI. ??The patient was interested in consultation with Radiation Oncology in [place]. ??Dr. Espino discussed that he would typically advise 6 months of concurrent androgen deprivation therapy and the patient was given his business card to set up an Eligard injection if he decides to proceed with radiation. 10. January 11, 2021: ??Dr. Beavers saw the patient in consultation and recommended hypofractionated intensity modulated radiotherapy with a 4 month course of neoadjuvant and concurrent androgen deprivation therapy. 11. January 16, 2021: ??PSA 11.95 ng/mL. ??Testosterone 150 ng/dL. ??Follow-up visit with Dr. Hughes. ??Patient received a Lupron 30 mg injection and started bicalutamide 50 mg daily??for 3 weeks. 12. April 05, 2021 through May 03, 2021: Intensity modulated radiation therapy to the prostate and proximal seminal vesicles to a dose of 6000 cGy in 20 fractions. 13. July 24, 2021: PSA 1.12 ng/mL. Testosterone, total 162 ng/dL. INTERVAL HISTORY The patient was seen and examined today with Dr. Beavers. The patient reports doing well overall. He rates his fatigue as 1/10 in severity. He reports feelinggood most days. He does have chronic mild shortness of breath that limits his activity. He is averaging two soft bowel movements per day. He denies rectal bleeding or fecal incontinence. He reports urinary frequency that is slightly increased compared to his pre-radiation baseline. He denies urinary urgency, dysuria, or hematuria. He reports very rare urinary incontinence of three episodes in three years. He has nocturia x 3. 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 AUA SYMPTOM INDEX: 01/11/21: 24 (4, 4, 3, 4, 4, 2, 3) 03/27/21: 27 (4, 4, 4, 4, 4, 4, 3) 08/04/21: 14 (2, 2, 2, 2, 2, 1, 3) IIEF-5 QUESTIONNAIRE: 01/11/21: 8 (2, 2, 1, 1, 2) moderate erectile dysfunction. 03/27/21: 5 (1, 1, 1, 1, 1) severe erectile dysfunction. 08/04/21: 6 (2, 1, 1, 1, 1) severe erectile dysfunction REVIEW OF SYSTEMS Review of systems was negative except as documented above. PATIENT REPORTED SYMPTOM SCREEN FATIGUE (Scale: 0 = no fatigue; 10 = worst fatigue you can imagine): 1 PAIN (Scale: 0 = no pain; 10 = worst pain you can imagine): 1 OVERALL QUALITY OF LIFE (Scale: 0 = as bad as can be; 10 = as good as can be): 9 OBJECTIVE BP (!) 166/68 (BP Location: Right arm, Patient Position: Sitting, Cuff Size: Regular) Pulse 79 Temp 36.4 ??C (Temporal) Wt 110 kg BMI 34.86 kg/m?? PHYSICAL EXAM GENERAL: Alert and oriented in no apparent distress. ASSESSMENT / PLAN #1 Stage IIC (cT2c, cN0, cM0, PSA: 12.2, Grade Group: 3) adenocarcinoma of the prostate #2 Erectile dysfunction, preceding radiotherapy #3 Occasional overflow urinary incontinence #4 Obstructive uropathy #5??Androgen deprivation therapy initiated with Lupron 30 mg injection and bicalutamide 50 mg daily for 3 weeks on January 16, 2021 with no further therapy planned #6 Intensity modulated radiotherapy to the prostate and proximal seminal vesicles initiated on April 05, 2021; completed on May 03, 2021 The patient is doing well overall following radiation therapy. We reviewed his PSA result of 1.12 ng/mL which has decreased from 11.95 ng/mL prior to treatment. His testosterone has recovered at 162 ng/dL. He reports a slight increase in urinary frequency, but otherwise his side effects from treatmenthave primarily resolved. We discussed continued monitoring of the PSA at this time. I will order fora PSA lab draw to be done at [facility] in 3 months. We will contact the patient with the result. We will then plan on repeating another PSA lab draw and scheduling a follow-up visit here in April 2022. He will contact us sooner with questions or concerns. He verbally expressed his understanding of the plan. EDUCATION Ready to learn, no apparent learning barriers were identified; learning preferences include listening. Explained diagnosis and treatment plan; patient expressed understanding of the content. I personally spent 20 minutes in care of the patient today. Time includes both non face to face and face to face patient care. Signed by: Zahraa Duong P.A.-C., M.S. 08/04/2021 11:06 [place] [address] Associated attestation - Enoch Beavers M.D. - 08/04/2021 11:49 AM CDT I saw and evaluated the patient and participated in the kelley portions of the service. I reviewed the documentation of Zahraa Duong P.A.-C. and agree with the findings and plan. Mr. Rudy Tejada is an 81-year-old male with adenocarcinoma of the prostate. He completed IMRT to the prostate and proximal seminal vesicles on May 03, 2021 along with 4 months of ADT. He is doing well now 3 months out from treatment completion. His PSA has come down from a pretreatment value of11.95 ng/mL to 1.12 ng/mL. The patient appears well on exam. His side effects from treatment have largely resolved. We will repeat a PSA in 3 months and contact him with those results. We will see him back in 9 months with a pre-visit PSA. The patient verbalized satisfaction with this plan. Signed by: Enoch Beavers M.D. 08/04/21 11:49 AM CDT [facility] Radiation Therapy [facility] documented in this encounter Plan of Treatment Scheduled Referrals Name Type Priority Associated Order Schedule Diagnoses Radiation Oncology Outpatient Referral Routine On ce for 1 office visit Occurrences sta rting (clinic) 08/03/2021 unti l 08/03/2021 documented as of this encounter Visit Diagnoses Diagnosis Primary Malignant Neoplasm Of Prostate ( HCC) - Primary documented in this encounter
--- OUTSIDE RECORDS SUMMARY | 2022-01-18 11:14 | XMS_ITS | Clinical Summary ---
:1940 Author Organization [facility] Address [address] [place] [address] Care Team Providers Name Role Phone Unavailable Primary Care Provider Unavailable Source Comments Patient records contain information from all sites at [facility]. For routine questions regarding patient records, call [phone] during business hours, M-F 8:00 AM - 5:00 PM Central Time. Record requests for emergency care only can be directed to [phone] at any time.[facility] Allergies Active Allergy Reactions Severity Noted Date Comments Cat Dander Cough Low 01/11/2021 Medications Medication Sig Dispensed Refills Start Date End Date Status metFORMIN XR metformin ER 500 mg tablet,extended release 24 hr 0 07/13/2020 Active (GLUCOPHAGE-XR) 500 TAKE 1 TABLET BY MOUTH TWIC E A DAY . FOLLOWUP IN 2020. mg 24 hr tablet multivitamin tablet Take 1 tablet by 0 Active mouth daily. pantoprazole pantoprazole 40 mg tablet,delayed release 0 05/12/2012 Active (PROTONIX) 40 mg EC TAKE 1 TABLET BY MOUTH DAILY. tablet coenzyme Q10 (CO Take 10 mg by 0 Active Q-10) 10 mg capsule mouth. valsartan-hydroCHLORO valsartan 80 mg-hydrochlorothiazide 12.5 mg tabl et 0 Active thiazide (DIOVAN-HCT) TAKE 1 TABLET BY MOUTH EVERY DAY 80-12.5 mg per tablet leuprolide (ELIGARD 4 Inject 30 mg under 1 each 0 1 Active MONTH) 30 mg the skin once for 1 injection dose. bicalutamide Take 1 tablet (50 21 tablet 0 01/11/2021 Active (CASODEX) 50 mg mg total) by mouth tablet daily for 21 days. Take at the same time everyday. Take with or without food. Start AFTER Eligard injection on the same day. rosuvastatin Take 10 mg by mouth 0 Active (CRESTOR) 10 mg daily. tablet acetaminophen Take 650 mg by 0 A ctive (TYLENOL 8 HR) 650 mg mouth every ER tablet morning. aspirin [address] Take 81 mg by 0 05/12/2012 Active tablet mouth. betamethasone 0 03/01/2021 Activ e dipropionate, augmented, (DIPROLENE) 0.05 % cream Active Problems Problem Noted Date Primary Malignant Neoplasm Of Prostate 01/10/2021 Cancer Staging: Clinical stage from 2020: Stage IIC (cT2c, cN0, cM0, PSA: 12.2, Grade Group: 3) - Unsigned Encounters Date Type Specialty Care Team Description 11/09/2021 Clinical Communication Radiation Oncology Marya Rivero , Results R.N. 11/09/2021 Orders Only Radiation Oncology Marya Rivero, Primary Malignant R.N. Neoplasm Of Pro state (HCC) (Primary Dx) from Last 3 Months Social History Tobacco Use Types Packs/Day Years Used Date Smoking Tobacco: Never Assessed Sex Assigned at Date Recorded Not on file Last Filed Vital Signs Vital Sign Reading Time Taken Comments Blood Pressure 166/68 08/03/2021 2:45 PM CDT Pulse 79 08/03/2021 2:45 PM CDT Temperature 36.4 ??C (97.5 ??F) 08/03/2021 2:45 PM CDT Respiratory Rate - - Oxygen Saturation - - Inhaled Oxygen Concentration - - Weight 110 kg (242 lb 15.2 oz) 08/03/2021 2:45 PM CDT Height 177.8 cm (5' 10) 01/11/2021 3:00 PM CDT Body Mass Index 34.86 01/11/2021 3:00 PM CDT Plan of Treatment Health Maintenance Due Date Last Done Comments Creatinine Level 1940 Potassium Level 1940 Sodium Level 1940 Zoster Vaccines (1 of 2) 1960 DTaP,Tdap,and Td Vaccines (1 - Tdap) 04/17/2019 04/16/2019, 01/15/2007 Depression Screening (Annual PHQ-2) 05/06/2021 Fall Risk Screen (Annual) 05/06/2021 COVID-19 Vaccine (4 - Booster) 06/23/2021 03/31/2021, 07/09, 06/18/2020 Influenza Vaccine (#1) 2022 Pneumococcal vaccine (65+ years) Completed 05/11/2020, 04/2007 Insurance Payer Benefit Plan Subscriber ID Effective Phone Address Typ e / Group Dates [employer] [id number] 2021-Lois [phone] [address] [address] PPO COMPLETE nt [address] [place] [address]
--- OUTSIDE RECORDS SUMMARY | 2022-01-18 11:14 | XMS_ITS | Encounter Summary ---
:1940 Author Organization [facility] Address [address] [place] [address] Care Team Providers Name Role Phone Unavailable Primary Care Provider Unavailable Encounter Details Date Type Department Care Team Description 05/03/2021 Documentation Department of Radiation Enoch Beavers, Oncology in [place] [address] [facility] [address] [place] [phone] (Wo rk) Social History Tobacco Use Types Packs/Day Years Used Date Smoking Tobacco: Never Assessed Sex Assigned at Date Recorded Not on file documented as of this encounter Miscellaneous Notes Radiation Completion Notes - Jodi Dunn, RGuyN. - 05/03/2021 11:59 PM DIRECTOR OF CORPORATE SALES DIAGNOSIS: Primary Malignant Neoplasm of Prostate Attending Physician: Enoch Beavers M.D. Treatment Intent: Curative Concomitant Therapy: None Treatment Dates: 04/05/21-05/03/21 Treatment Plans: Course # 1 Radiation Treatment Summary Treatment Course: 1x Prostate Plan ID Fractions Dose / Fraction (cGy) Dose Treated (cGy) Dose Planned (cGy) First Treatment Last Treatment Elapsed Days F1_Prostate [phone] 04/05/2021 05/03/2021 28 Course Summary 04/05/2021 05/03/2021 28 CLINICAL SUMMARY The course of treatment was tolerated well. Mr. Rudy Tejada experienced toxicities of grade 1 urinary frequency, incontinence, urinary obstruction and grade 2 erectile dysfunction (previously had) during radiation treatment. which were managed with expectant management. RECOMMENDED FOLLOW UP: Radiation Oncologist, Dr. Beavers in 3 months. Signed by: Jodi Dunn R.N., 05/19/2021 3:40 PM DIRECTOR OF CORPORATE SALES [employer] documented in this encounter Plan of Treatment Not on filedocumented as of this encounter Visit Diagnoses Diagnosis Primary Malignant Neoplasm Of Prostate ( HCC) - Primary documented in this encounter
--- OUTSIDE RECORDS SUMMARY | 2022-01-18 11:14 | XMS_ITS | Encounter Summary ---
:1940 Author Organization [facility] Address [address] [place] [address] Care Team Providers Name Role Phone Unavailable Primary Care Provider Unavailable Reason for Visit Radiation Therapy (Routine) - Closed Specialty Diagnoses / Procedures Referred By Contact Refer red To Contact Diagnoses Primary Malignant Neoplasm Of Prostate (HCC) Enoch Beavers M.D. [facility] Procedures Prior Auth Rad Tx [place] IMRT SIMPLE [address] [place] [address] Referral ID Status Reason Start Date Expiration Date Visits Requ ested Visits Authorized [id number] Closed 03/30/2021 01/11/2022 26 26 Encounter Details Date Type Department Care Team Description 04/13/2021 Hospital Encounter Department of Radiation Jessica Beavers, [place]cology in [place] [id number] [place] [phone] Social History Tobacco Use Types Packs/Day Years [...]
--- OUTSIDE RECORDS SUMMARY | 2022-01-18 11:14 | XMS_ITS | Encounter Summary ---
:1940 Author Organization [facility] Address [address] [place] [address] Care Team Providers Name Role Phone Unavailable Primary Care Provider Unavailable Reason for Referral Radiation Therapy (Routine) - Closed Specialty Diagnoses / Procedures Referred By Contact Refer red To Contact Diagnoses Primary Malignant Neoplasm Of Prostate (HCC) Enoch Beavers M.D. [facility] Procedures Management Visit [address] [place] [phone] Referral ID Status Reason Start Date Expiration Date Visits Requ ested Visits Authorized [id number] Closed 01/11/2021 01/11/2022 4 4 UCT SUPPORT ENGINEER Reason for Visit Radiation Therapy (Routine) - Closed Specialty Diagnoses / Procedures Referred By Contact Refer red To Contact Diagnoses Primary Malignant Neoplasm Of Prostate (HCC) Enoch Beavers M.D. [facility] Procedures Management Visit [address] [place] [phone] Referral ID Status Reason Start Date Expiration Date Visits Requ ested Visits Authorized [id number] Closed 01/11/2021 01/11/2022 4 4 Encounter Details Date Type Department Care Team Description 05/02/2021 Hospital Encounter Department of Jeninfer Upton Malignant Radiation Oncology [place] Neoplasm Of Prostate in [place], [address] [place] [address] (HCC) [place], [place] 1821 [facility] [address] [place], [place] [phone] (Work) [phone] Social History Tobacco Use Types Packs/Day Years Used Date Smoking Tobacco: Never Assessed Sex Assigned at Date Recorded Not on file documented as of this encounter Last Filed Vital Signs Vital Sign Reading Time Taken Comments Blood Pressure - - Pulse - - Temperature 36.4 ??C (97.5 ??F) 05/02/2021 11:23 AM PRODUCT SUPPORT ENGINEER Respiratory Rate - - Oxygen Saturation - - Inhaled Oxygen Concentration - - Weight 106 kg (233 lb 0.4 oz) 05/02/2021 11:23 AM PRODUCT SUPPORT ENGINEER Height - - Body Mass Index 33.44 01/11/2021 3:00 PM CDT documented in this [...] Progress Notes Zahraa Duong P.A.-Felix., M.S. - 05/02/2021 11:30 AM CST SUBJECTIVE REASON FOR VISIT Evaluation for side effects while receiving radiation treatment for 1. Primary Malignant Neoplasm Of Prostate (HCC) SUPERVISED BY: Jennifer Upton M.D. HISTORY OF PRESENT ILLNESS Mr. Rudy Tejada is an 81-year-old male with adenocarcinoma of the prostate. He is now undergoing radiotherapy. Treatment Course: 1x Prostate Plan ID Fractions Dose / Fraction (cGy) Dose Treated (cGy) Dose Planned (cGy) First Treatment Last Treatment Elapsed Days F1_Prostate [id number] 04/05/2021 05/02/2021 27 Course Summary 04/05/2021 05/02/2021 27 His oncologic history is as follows: 1. [...] lateral base of the prostate demonstrated adenocarcinoma, Hobart 3+4=7, involving 40% of the length of the core, perineural invasion not seen. ??Pathology of the left lateral apex of the prostate demonstrated adenocarcinoma, Alcon 3+3=6, discontinuously involving 40% of the length of the core, perineural invasion not seen. ??Pathology of the left base of the prostate demonstrated adenocarcinoma, Hobart 3+4=7, involving 90% of the length of the core, perineural invasion not seen. ??Pathology of the left mid of the prostate demonstrated adenocarcinoma, Alcon 4+3=7, involving 25% of the length of the core, perineural invasion not seen. ??Pathology of the left apex of the prostate demonstrated adenocarcinoma, Alcon 3+3=6, involving 10% of the length of the core, perineural invasion not seen. ??Pathology of the right mid of the prostate demonstrated adenocarcinoma, Hobart 3+4=7, involving 20% of the length of the core, perineural invasion not seen. ??Pathology of the right apex of the prostate demonstrated adenocarcinoma, Hobart 3+4=7, involving 20% of the length of the core, perineural invasion not seen. ??Pathology of the right lateral mid of the prostate demonstrated adenocarcinoma, Alcon [...] interested in consultation with Radiation Oncology in [place]. ??Dr. Espino discussed that he would typically advise 6 months of concurrent androgen deprivation therapy and the patient was given his business card to set up an Eligard injection if he decides to proceed with radiation. 10. January 11, 2021: I saw the patient in consultation and recommended hypofractionated intensity modulated radiotherapy with a 4 month course of neoadjuvant and concurrent androgen deprivation therapy. 11. January 16, 2021: PSA 11.95 ng/mL. Testosterone 150 ng/dL. Follow-up visit with Dr. Hughes. Patient received a Lupron 30 mg injection and started bicalutamide 50 mg daily for 3 weeks. 12. April 05, 2021 anticipated through May 03, 2021: Intensity modulated radiation therapy tothe prostate and proximal seminal vesicles to a dose of 6000 cGy in 20 fractions. The patient was seen and examined today with Dr. Upton. The patient reports doing well overall. He reports stable fatigue rated 1/10 severity. He reports relatively stable urination compared to pre-radiation. He reports rare small volume urinary incontinence associated with strong urgency. He does not wear a pad. He denies dysuria or hematuria. He has variable nocturia every 1-3 hours. He reports loose bowel movements, but denies diarrhea. He denies rectal bleeding. He denies hot flashes. PATIENT REPORTED SYMPTOM SCREEN FATIGUE (Scale: 0 = no fatigue; 10 = worst fatigue you can imagine): 1 PAIN (Scale: 0 = no pain; 10 = worst pain you can imagine): 0 OVERALL QUALITY OF LIFE (Scale: 0 = as bad as can be; 10 = as good as can be): good OBJECTIVE Temp 36.4 ??C (Temporal) Wt 106 kg BMI 33.44 kg/m?? PHYSICAL EXAM General: Alert and oriented [...] patient is tolerating radiation treatment well overall. He has experienced mild increased urinary frequency and looser stools during radiation treatment. He was educated on the time frame of symptom recovery following radiation treatment. He will be scheduled for a PSA and testosterone lab draw anastacio done at [facility] in [place] in 3 months followed by a return visit here with Dr. Beavers a few days later. Orders for these were already placed. He was asked to contact us sooner with questions or concerns. He verbally expressed his understanding of the plan. Signed by: Zahraa Duong P.A.-C., M.S. 05/02/2021 11:49 AM PRODUCT SUPPORT ENGINEER UCT SUPPORT ENGINEER Associated attestation - Jennifer Upton M.D. - 05/02/2021 1:52 PM PRODUCT SUPPORT ENGINEER I saw and evaluated the patient and participated in the kelley portions of the service. I reviewed the documentation of Ms. Zahraa Duong PA-C, [place] and agree with the findings and plan. The patient appears well on exam. We will continue with radiation as planned and we anticipate that he will complete his treatments tomorrow. I congratulated him on this accomplishment. We anticipate that Mr. Rudy Tejada will complete radiation treatment as planned without interruptions. The course of treatment was tolerated well. The patient experienced toxicities of grade 1 urinary frequency, incontinence, urinary obstruction and grade 2 erectile dysfunction (previously had) during radiation treatment. Follow-up will be with Dr. Beavers in 3 months. This has been previously ordered. Jennifer Upton M.D., 05/02/2021 documented in this encounter Plan of Treatment Scheduled Orders Name Type Priority Associated Diagnoses Order S chedule Management Visit Radiation Oncology Routine Primary Malignant Once for 1 Neoplasm Of Prostate Occurre nces starting (HCC) 05/02/2021 unti l 05/02/2021 documented as of this encounter Visit Diagnoses Diagnosis Primary Malignant Neoplasm Of Prostate ( HCC) documented in this encounter
--- OUTSIDE RECORDS SUMMARY | 2022-01-18 11:14 | XMS_ITS | Encounter Summary ---
:1940 Author Organization [facility] Address [address] [place] [address] Care Team Providers Name Role Phone Unavailable Primary Care Provider Unavailable Reason for Visit Radiation Therapy (Routine) - Closed Specialty Diagnoses / Procedures Referred By Contact Refer red To Contact Diagnoses Primary Malignant Neoplasm Of Prostate (HCC) Enoch Beavers M.D. [facility] Procedures Prior Auth Rad Tx [place] IMRT SIMPLE [address] [place] [address] Referral ID Status Reason Start Date Expiration Date Visits Requ ested Visits Authorized [id number] Closed 03/30/2021 01/11/2022 26 26 Encounter Details Date Type Department Care Team Description 05/03/2021 Hospital Encounter Department of Radiation Jessica Beavers, [place]cology [place] [address] [place] [phone] Social History Tobacco Use Types Packs/Day Years [...]
--- OUTSIDE RECORDS SUMMARY | 2022-01-18 11:14 | XMS_ITS | Encounter Summary ---
:[address] [facility] Address [address] [place] [address] Care Team Providers Name Role Phone Unavailable Primary Care Provider Unavailable Reason for Visit Radiation Therapy (Routine) - Closed Specialty Diagnoses / Procedures Referred By Contact Refer red To Contact Diagnoses Primary Malignant Neoplasm Of Prostate (HCC) Enoch Beavers M.D. [facility] Procedures Prior Auth Rad Tx [place] IMRT SIMPLE [address] [place] [address] Referral ID Status Reason Start Date Expiration Date Visits Requ ested Visits Authorized [id number] Closed 03/30/2021 01/11/2022 26 26 Encounter Details Date Type Department Care Team Description 04/25/2021 Hospital Encounter Department of Radiation Jessica Beavers, [place]cology [place] [address] [place] [address] [phone] Social History Tobacco Use Types Packs/Day Years [...]
--- OUTSIDE RECORDS SUMMARY | 2022-01-18 11:14 | XMS_ITS | Encounter Summary ---
:1940 Author Organization [facility] Address [address] [place] [address] Care Team Providers Name Role Phone Unavailable Primary Care Provider Unavailable Reason for Visit Radiation Therapy (Routine) - Closed Specialty Diagnoses / Procedures Referred By Contact Refer red To Contact Diagnoses Primary Malignant Neoplasm Of Prostate (HCC) Enoch Beavers M.D. [facility] Procedures Prior Auth Rad Tx [place] IMRT SIMPLE [address] [place] [address] Referral ID Status Reason Start Date Expiration Date Visits Requ ested Visits Authorized [id number] Closed 03/30/2021 01/11/2022 26 26 Encounter Details Date Type Department Care Team Description 04/24/2021 Hospital Encounter Department of Radiation Jessica Beavers, Oncology in [place] [address] [place] [phone] Social History Tobacco Use Types Packs/Day Years [...]
--- OUTSIDE RECORDS SUMMARY | 2022-01-18 11:14 | XMS_ITS | Encounter Summary ---
:1940 Author Organization [facility] Address [address] [place] [address] Care Team Providers Name Role Phone Unavailable Primary Care Provider Unavailable Reason for Visit Outpatient (Routine) - Closed Specialty Diagnoses / Procedures Referred By Contact Refer red To Contact Radiation Oncology Enoch Beavers M .D. [address] [address] Referral ID Status Reason Start Date Expiration Date Visits Requ ested Visits Authorized [id number] Closed 01/11/2021 01/11/2022 1 1 Encounter Details Date Type Department Care Team Description 03/17/2021 - Hospital Encounter Department of Ruthann, Primary Malignant 04/16/2021 Radiation Oncology Enoch Hamilton M.D. Neoplasm Of Prostate in [address] (HCC) (Primary Dx) [place], [place] 1821 [facility] [address] [place], [place] [phone] (Work) [phone] Social History Tobacco Use Types Packs/Day Years [...] tablet Take 81 mg by mouth. 0 metFORMIN XR metformin ER 500 mg tablet,extended [...] MOUTH EVERY DAY 80-12.5 mg per tablet betamethasone 0 03/01/2021 dipropionate, augmented, (DIPROLENE) 0.05 % cream coenzyme Q10 (CO Q-10) Take 10 mg by mouth. 0 10 mg capsule documented as of this encounter Plan of Treatment Not on filedocumented as of this encounter Visit Diagnoses Diagnosis Primary Malignant Neoplasm Of Prostate ( HCC) - Primary documented in this encounter
--- OUTSIDE RECORDS SUMMARY | 2022-01-18 11:14 | XMS_ITS | Encounter Summary ---
:1940 Author Organization [facility] Address [address] [place] [address] Care Team Providers Name Role Phone Unavailable Primary Care Provider Unavailable Reason for Visit Radiation Therapy (Routine) - Closed Specialty Diagnoses / Procedures Referred By Contact Refer red To Contact Diagnoses Primary Malignant Neoplasm Of Prostate (HCC) Enoch Beavers M.D. [facility] Procedures Prior Auth Rad Tx [place] IMRT SIMPLE [address] [place] [address] Referral ID Status Reason Start Date Expiration Date Visits Requ ested Visits Authorized [id number] Closed 03/30/2021 01/11/2022 26 26 Encounter Details Date Type Department Care Team Description 04/26/2021 Hospital Encounter Department of Radiation Jessica Beavers, Oncology in [place] [address] [place] [phone] Social History Tobacco Use Types Packs/Day Years [...]
--- OUTSIDE RECORDS SUMMARY | 2022-01-18 11:14 | XMS_ITS | Encounter Summary ---
:1940 Author Organization [facility] Address [address] [place] [address] Care Team Providers Name Role Phone Unavailable Primary Care Provider Unavailable Reason for Visit Radiation Therapy (Routine) - Closed Specialty Diagnoses / Procedures Referred By Contact Refer red To Contact Diagnoses Primary Malignant Neoplasm Of Prostate (HCC) Enoch Beavers M.D. [facility] Procedures Prior Auth Rad Tx [place] IMRT SIMPLE [address] [place] [address] Referral ID Status Reason Start Date Expiration Date Visits Requ ested Visits Authorized [id number] Closed 03/30/2021 01/11/2022 26 26 Encounter Details Date Type Department Care Team Description 04/21/2021 Hospital Encounter Department of Radiation Jessica Beavers, Oncology [place] [address] [facility] [address] [place] [phone] Social History Tobacco Use Types Packs/Day Years [...]
--- OUTSIDE RECORDS SUMMARY | 2022-01-18 11:14 | XMS_ITS | Encounter Summary ---
:1940 Author Organization [facility] Address [address] [place] [address] Care Team Providers Name Role Phone Unavailable Primary Care Provider Unavailable Encounter Details Date Type Department Care Team Description 09/04/2021 Clinical Communication Department of Petra King Radiation Oncology in [address] [address] [place] [address] Social History Tobacco Use Types Packs/Day Years Used Date Smoking Tobacco: Never Assessed Sex Assigned at Date Recorded Not on file documented as of this encounter Plan of Treatment Not on filedocumented as of this encounter Visit Diagnoses Not on filedocumented in this encounter
--- OUTSIDE RECORDS SUMMARY | 2022-01-18 11:14 | XMS_ITS | Encounter Summary ---
:1940 Author Organization [facility] Address [address] [place] [address] Care Team Providers Name Role Phone Unavailable Primary Care Provider Unavailable Reason for Visit Radiation Therapy (Routine) - Closed Specialty Diagnoses / Procedures Referred By Contact Refer red To Contact Diagnoses Primary Malignant Neoplasm Of Prostate (HCC) Enoch Beavers M.D. [facility] Procedures Prior Auth Rad Tx [place] IMRT SIMPLE [address] [place] [address] Referral ID Status Reason Start Date Expiration Date Visits Requ ested Visits Authorized [id number] Closed 03/30/2021 01/11/2022 26 26 Encounter Details Date Type Department Care Team Description 04/17/2021 Hospital Encounter Department of Radiation Jessica Beavers, Oncology [place] [address] [facility] [address] [place] [phone] Social History Tobacco Use Types Packs/Day Years [...]
--- OUTSIDE RECORDS SUMMARY | 2022-01-18 11:15 | XMS_ITS | Encounter Summary ---
:1940 Author Organization [facility] Address [address] [place] [address] Care Team Providers Name Role Phone Unavailable Primary Care Provider Unavailable Reason for Visit Radiation Therapy (Routine) - Closed Specialty Diagnoses / Procedures Referred By Contact Refer red To Contact Diagnoses Primary Malignant Neoplasm Of Prostate (HCC) Enoch Beavers M.D. [facility] Procedures Prior Auth Rad Tx [place] IMRT SIMPLE [address] [place] [address] Referral ID Status Reason Start Date Expiration Date Visits Requ ested Visits Authorized [id number] Closed 03/30/2021 01/11/2022 26 26 Encounter Details Date Type Department Care Team Description 04/07/2021 Hospital Encounter Department of Radiation Jessica Beavers, [place]cology [place] [address] [place] [phone] Social History Tobacco Use Types Packs/Day Years [...]
--- OUTSIDE RECORDS SUMMARY | 2022-01-18 11:15 | XMS_ITS | Encounter Summary ---
:1940 Author Organization [facility] Address [address] [place] [address] Care Team Providers Name Role Phone Unavailable Primary Care Provider Unavailable Reason for Visit Radiation Therapy (Routine) - Closed Specialty Diagnoses / Procedures Referred By Contact Refer red To Contact Diagnoses Primary Malignant Neoplasm Of Prostate (HCC) Enoch Beavers M.D. [facility] Procedures Prior Auth Rad Tx [place] IMRT SIMPLE [address] [place] [address] Referral ID Status Reason Start Date Expiration Date Visits Requ ested Visits Authorized [id number] Closed 03/30/2021 01/11/2022 26 26 Encounter Details Date Type Department Care Team Description 04/06/2021 Hospital Encounter Department of Radiation Jessica Beavers, [place]cology [place] [address] [place] [phone] Social History Tobacco Use Types Packs/Day Years [...]
--- OUTSIDE RECORDS SUMMARY | 2022-01-18 11:15 | XMS_ITS | Encounter Summary ---
:1940 Author Organization [facility] Address [address] [place] [address] Care Team Providers Name Role Phone Unavailable Primary Care Provider Unavailable Reason for Referral Specialty Diagnoses / Procedures Referred By Contact Refer red To Contact Gogo Herrera M.D. [facility] [address] [place] [phone] Referral ID Status Reason Start Date Expiration Date Visits Requ ested Visits Authorized Encounter Details Date Type Department Care Team Description 01/13/2021 Orders Only RST PCP HLTH MNT Gogo Herrera M.D. [address] [place] [phone] (Wo rk) Social History Tobacco Use Types Packs/Day Years Used Date Smoking Tobacco: Never Assessed Sex Assigned at Date Recorded Not on file documented as of this encounter Plan of Treatment Scheduled Referrals Name Type Priority Associated Order Schedule Diagnoses Covid immunization Outpatient Referral Routine Ex pected: office visit Booster 021 (Approximate), Expires: 01/13/2022 documented as of this encounter Visit Diagnoses Not on filedocumented in this encounter
--- OUTSIDE RECORDS SUMMARY | 2022-01-18 11:15 | XMS_ITS | Encounter Summary ---
:1940 Author Organization [facility] Address [address] [place] [address] Care Team Providers Name Role Phone Unavailable Primary Care Provider Unavailable Reason for Visit Radiation Therapy (Routine) - Closed Specialty Diagnoses / Procedures Referred By Contact Refer red To Contact Diagnoses Primary Malignant Neoplasm Of Prostate (HCC) Enoch Beavers M.D. [facility] Procedures Prior Auth Rad Tx [place] IMRT SIMPLE [address] [place] [address] Referral ID Status Reason Start Date Expiration Date Visits Requ ested Visits Authorized [id number] Closed 03/30/2021 01/11/2022 26 26 Encounter Details Date Type Department Care Team Description 04/05/2021 Hospital Encounter Department of Radiation Jessica Beavers, [place]cology [place] [address] [place] [phone] Social History Tobacco Use Types Packs/Day Years [...]
--- OUTSIDE RECORDS SUMMARY | 2022-01-18 11:15 | XMS_ITS | Encounter Summary ---
:1940 Author Organization [facility] Address [address] [place] [address] Care Team Providers Name Role Phone Unavailable Primary Care Provider Unavailable Reason for Visit Reason Comments Med Refill Encounter Details Date Type Department Care Team Description 02/12/2021 Refill Department of Radiation Enoch Beavers M.D. Med Refill Oncology in [place], [facility] [address] [place] [address] [address] [facility] [place] [address] [phone] Social History Tobacco Use Types Packs/Day Years Used Date Smoking Tobacco: Never Assessed Sex Assigned at Date Recorded Not on file documented as of this encounter Plan of Treatment Not on filedocumented as of this encounter Visit Diagnoses Not on filedocumented in this encounter
--- OUTSIDE RECORDS SUMMARY | 2022-01-18 11:15 | XMS_ITS | Encounter Summary ---
:1940 Author Organization [facility] Address [address] [place] [id number] Care Team Providers Name Role Phone Unavailable Primary Care Provider Unavailable Reason for Referral Radiation Therapy (Routine) - Closed Specialty Diagnoses / Procedures Referred By Contact Refer red To Contact Diagnoses Primary Malignant Neoplasm Of Prostate (HCC) Enoch Beavers M.D. [facility] [place] [facility] Procedures Initial Rad Onc Treatment Planning CT Simulation [address] [place] [address] Referral ID Status Reason Start Date Expiration Date Visits Requ ested Visits Authorized [id number] Closed 01/11/2021 01/11/2022 1 1 HER DRESSER Reason for Visit Radiation Therapy (Routine) - Closed Specialty Diagnoses / Procedures Referred By Contact Refer red To Contact Diagnoses Primary Malignant Neoplasm Of Prostate (HCC) Enoch Beavers M.D. [facility] [place] [facility] Procedures Initial Rad Onc Treatment Planning CT Simulation [address] [place] [address] Referral ID Status Reason Start Date Expiration Date Visits Requ ested Visits Authorized [id number] Closed 01/11/2021 01/11/2022 1 1 Encounter Details Date Type Department Care Team Description 03/27/2021 Hospital Encounter Department of Enoch Beavers Malignant Radiation Oncology Nereida Hamilton Neoplasm Of Prostate in [place], [address] [facility] (H[facility]) [place], [place] [address] [facility] [address] [place], [place] [phone] (Work) [phone] Social History Tobacco Use Types Packs/Day Years [...] per tablet documented as of this encounter Procedure Notes Ruthie Colon, RTT - 03/27/2021 2:45 PM CSTAssociated Order(s): Initial Rad Onc Treatment Planning CT Simulation Pre-Procedure Diagnose(s): Primary Malignant Neoplasm Of Prostate (HCC) Post-Procedure Diagnose(s): Primary Malignant Neoplasm Of Prostate (HCC) Initial Rad Onc Treatment Planning CT Simulation Date/Time: 03/27/2021 3:09 PM Performed by: Enoch Beavers M.D. Authorized by: Enoch Beavers M.D. Simulation was performed under physician supervision based on physician order in preparation for radiation therapy. Physician was immediately available to provide assistance and direction throughout the procedure. Written consent for treatment was completed or confirmed. The patient was appropriately identified and placed in the treatment position using the necessary immobilization to ensure a reproducible treatment position. Reference velásquez were placed to facilitate marking of isocenter. Area scanned: Abdomen and Pelvis Contrast used for the simulation procedure: None Patient position: Head first supine Custom immobilization: Vac-rodger Motion management: None Bolus: No CT guidance: Following positioning of the patient, a series of slices was obtained to be utilized intreatment planning. CT images were transferred to the [employer] treatment planning system, after a reference isocenter was determined and marked. Segmentation and treatment planning will take place priorto treatment delivery. Patient set up and imaging was appropriate and completed without incident. Box Office Attendant use: No HER DRESSER documented in this encounter Plan of Treatment Not on filedocumented as of this encounter Procedures Procedure Name Priority Date/Time Associated Comments Diagnosis INITIAL RAD ONC Routine 03/27/2021 3:09 PM Primary Malignant R esults for this TREATMENT PLANNING LEATHER DRESSER Neoplasm Of procedure are in CT SIMULATION Prostate (HCC) the results section. documented in this encounter Results Initial Rad Onc Treatment Planning CT Simulation (03/27/2021 3:09 PM LEATHER DRESSER) Specimen (Source) Anatomical Location Collection Method / Collectio n Time Received Time / Laterality Volume Narrative [facility] - 03/27/2021 3:09 PM LEATHER DRESSER Ruthie Colon R, RTT ? 03/27/2021 ??3:10 PM Initial Rad Onc Treatment Planning CT Si mulation Date/Time: 03/27/2021 3:09 PM Performed by: Enoch Beavers M.D. Authorized by: Enoch Beavers M.D. Enoch Beavers M.D. RADIATION ONCOLOGY ORDERABLE S Performing Organization Address City/State/ZIP Code Phon e Number [facility] na documented in this encounter Visit Diagnoses Diagnosis Primary Malignant Neoplasm Of Prostate ( HCC) documented in this encounter
--- OUTSIDE RECORDS SUMMARY | 2022-01-18 11:15 | XMS_ITS | Encounter Summary ---
:[address] [facility] Address [address] [place] [address] Care Team Providers Name Role Phone Unavailable Primary Care Provider Unavailable Reason for Referral Outpatient (Routine) - Closed Specialty Diagnoses / Procedures Referred By Contact Refer red To Contact Radiation Oncology Enoch Beavers M .D. [place] [facility] [address] [place] [address] Referral ID Status Reason Start Date Expiration Date Visits Requ ested Visits Authorized [id number] Closed 01/11/2021 01/11/2022 1 1 Scheduling Instructions Prior to simulation for consent Radiation Therapy (Routine) - Closed Specialty Diagnoses / Procedures Referred By Contact Refer red To Contact Diagnoses Primary Malignant Neoplasm Of Prostate (HCC) Enoch Beavers M.D. [facility] Procedures Management Visit [address] [place] [address] Referral ID Status Reason Start Date Expiration Date Visits Requ ested Visits Authorized [id number] Closed 01/11/2021 01/11/2022 4 4 Radiation Therapy (Routine) - Closed Specialty Diagnoses / Procedures Referred By Contact Refer red To Contact Diagnoses Primary Malignant Neoplasm Of Prostate (HCC) Enoch Beavers M.D. [facility] Procedures Prior Auth Rad Tx CT IMRT SIMPLE [address] [place] [address] Referral ID Status Reason Start Date Expiration Date Visits Requ ested Visits Authorized [id number] Closed 03/30/2021 01/11/2022 26 26 Radiation Therapy (Routine) - Closed Specialty Diagnoses / Procedures Referred By Contact Refer red To Contact Diagnoses Primary Malignant Neoplasm Of Prostate (HCC) Enoch Beavers M.D. [facility] Procedures Initial Rad Onc Treatment Planning CT Simulation [address] [place] [address] Referral ID Status Reason Start Date Expiration Date Visits Requ ested Visits Authorized [id number] Closed 01/11/2021 01/11/2022 1 1 Reason for Visit Appointment Request (Routine) - Closed Specialty Diagnoses / Procedures Referred By Contact Refer red To Contact Radiation Oncology Diagnoses Primary Malignant Neoplasm Of Prostate (HCC) Referral ID Status Reason Start Date Expiration Date Visits Requ ested Visits Authorized [id number] Closed 12/28/2020 12/28/2021 1 1 Encounter Details Date Type Department Care Team Description 01/11/2021 - Hospital Encounter Department of Ruthann, Primary Malignant 01/12/2021 Radiation Oncology Enoch Hamilton M.D. Neoplasm Of Prostate in [place], [address] [facility] (HCC) (Primary Dx) [place], [place] [address] [facility] [address] [place], [place] [phone] (Work) [phone] Social History Tobacco Use Types Packs/Day Years Used Date Smoking Tobacco: Never Assessed Sex Assigned at Date Recorded Not on file documented as of this encounter Last Filed Vital Signs Vital Sign Reading Time Taken Comments Blood Pressure 133/64 01/11/2021 3:00 PM CDT Pulse 77 01/11/2021 3:00 PM CDT Temperature 36.6 ??C (97.8 ??F) 01/11/2021 3:00 PM CDT Respiratory Rate - - Oxygen Saturation - - Inhaled Oxygen Concentration - - Weight 109 kg (239 lb 10.2 oz) 01/11/2021 3:00 PM CDT Height 177.8 cm (5' 10) 01/11/2021 3:00 PM CDT Body Mass Index 34.38 01/11/2021 3:00 PM CDT documented in this encounter Medications at Time of Discharge Medication Sig Dispensed Refills Start Date End Date coenzyme Q10 (CO Q-10) Take 10 mg [...] tablet TAKE 1 TABLET BY MOUTH DAILY. valsartan-hydroCHLOROthi valsartan 80 mg-hydrochlorothiazide 12.5 mg tablet 0 azide (DIOVAN-HCT) TAKE 1 TABLET BY MOUTH EVERY DAY 80-12.5 mg per tablet aspirin [address] tablet Take 81 mg by mouth. 0 bicalutamide (CASODEX) Take 1 tablet (50 mg 21 tablet 0 12/2020 50 mg tablet total) by mouth daily for 21 days. Take at the same time everyday. Take with or without food. Start AFTER Eligard injection on the same day. documented as of this encounter Consult Notes Enoch Beavers M.D. - 01/11/2021 2:30 PM CDT SUBJECTIVE REQUESTING PROVIDER Reji Espino M.D. REASON FOR CONSULT 1. Primary Malignant Neoplasm Of Prostate (HCC) HISTORY OF PRESENT ILLNESS Mr. Rudy Tejada (dung Sevilla) is a 80 y.o. 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 I am asked by Dr. Espino to evaluate the patient for radiotherapy. His oncologic history is as follows: 1. April 06, 2019: PSA 4.89 ng/mL 2. January 06, 2020: PSA 5.91 ng/mL 3. July 28, 2020: PSA 7.41 ng/mL 4. August 31, 2020: Consultation with Dr. Josiah Joshi where digital rectal examination demonstrated a 20 mL prostate that was asymmetric with firmness to the right lateral lobe. Recommended repeating aPSA. Plan for biopsy. 5. August 31, 2020: PSA 12.24 ng/mL 6. October 04, 2020: Prostate biopsy was performed by Dr. Joshi. Rectal exam was asymmetric. Twelve biopsies were performed. Pathology of the left lateral base of the prostate demonstrated adenocarcinoma, Hendricks 3+4=7, involving 40% of the length of the core, perineural invasion not seen. Pathology of the left lateral apex of the prostate demonstrated adenocarcinoma, Alcon 3+3=6, discontinuously involving 40% of the length of the core, perineural invasion not seen. Pathology of the left base of the prostate demonstrated adenocarcinoma, Alcon 3+4=7, involving 90% of the length of the core, perineural invasion not seen. Pathology of the left mid of the prostate demonstrated adenocarcinoma, Hendricks 4+3=7, involving 25% of the length of the core, perineural invasion not seen. Pathology of the left apex of the prostate demonstrated adenocarcinoma, Hendricks 3+3=6, involving 10% of the length of the core, perineural invasion not seen. Pathology of the right mid of the prostate demonstrated adenocarcinoma, Alcon 3+4=7, involving 20% of the length of the core, perineural invasion not seen. Pathology of the right apex of the prostate demonstrated adenocarcinoma, Alcon 3+4=7, involving 20% of the length of the core, perineural invasion not seen. Pathology of the right lateral mid of the prostate demonstrated adenocarcinoma, Alcon 3+4=7, involving 40% of the length of the core, perineural invasion present. Pathology of the left lateral mid of the prostate demonstrated atypical small acinar proliferation, highly suspicious for malignancy. Pathology of the right base and right lateral base of theprostate demonstrated benign prostatic tissue. 7. November 10, 2020: Nuclear medicine whole-body bone scan demonstrated prominent activity identified inthe region of the right shoulder. Areas of activity identified posteriorly throughout the cervical, thoracic, and lumbar spine which were favored to be degenerative. Photopenic activity in the left shoulder presumably from a left shoulder arthroplasty. 8. November 10, 2020: CT scan of the abdomen and pelvis demonstrated no evidence of metastatic disease. 3.7 cm abdominal aortic aneurysm. Incidental multiple simple intrahepatic cysts. Extensive chronic sigmoid diverticulosis. 9. December 26, 2020: Consultation with Dr. Reji Espino who did not recommend surgery given the patient's advanced age and elevated BMI. The patient was interested in consultation with Radiation Oncology in [place]. Dr. Espino discussed that he would typically advise 6 months of concurrent androgen deprivation therapy and the patient was given his business card to set up an Eligard injection ifhe decides to proceed with radiation. INTERVAL HISTORY The patient reports he is currently feeling well. He has very occasional overflow urinary incontinence that occurs approximately once every 2 months. He reports nocturia x3 as well as multiple obstructive urinary symptoms including incomplete emptying, frequency, urgency, and weak stream. He denies any dysuria, hematuria, melena, hematochezia, dyschezia, hemorrhoids, fecal incontinence, or bone pain.He has bowel movements once or twice a day. He has had erectile dysfunction for the past 5 years. This is not a bother to him. The patient denies a history of prior radiation therapy, connective tissuedisorders, or inflammatory bowel disease. The patient's ECOG performance status is 0. AUA SYMPTOM INDEX January 11, 2021: 24 (4, 4, 3, 4, 4, 2, 3) IIEF-5 January 11, 2021: 8 (2, 2, 1, 1, 2) indicative of moderate erectile dysfunction. REVIEW OF SYSTEMS Review of systems was negative except as documented above. PATIENT REPORTED SYMPTOM SCREEN FATIGUE (Scale: 0 = no fatigue; 10 = worst fatigue you can imagine): 3 PAIN (Scale: 0 = no pain; 10 = worst pain you can imagine): 0 OVERALL QUALITY OF LIFE (Scale: 0 = as bad as can be; 10 = as good as can be): 7 PAST MEDICAL HISTORY 1. Pre-diabetes 2. Obstructive sleep apnea, on CPAP 3. Hypertension 4. Colon polyps 5. Low testosterone 6. Allergic rhinitis 7. Cerebrovascular accident, 2012 8. Hyperlipidemia 9. Fatty liver 10. Hepatic cyst 11. Benign prostatic hypertrophy 12. Gastroesophageal reflux disease 13. Prostate cancer PAST SURGICAL HISTORY 1. Total replacement, left shoulder joint SOCIAL HISTORY He lives in [place], [place]. He is to his , Kim. He has 3 children. He is a former smoker with a 30 pack-year history, quit in 1982. He has a history of alcohol abuse, quit in 1981. 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 FAMILY HISTORY Negative for prostate cancer. His father of a heart attack at age 64. His mother at age 89. OBJECTIVE BP 133/64 (BP Location: Right arm, Patient Position: Sitting, Cuff Size: Large) Pulse 77 Temp 36.6 ??C (Temporal) Ht 177.8 cm Wt 109 kg BMI 34.38 kg/m?? PHYSICAL EXAM General: Patient is awake, alert, and oriented to person, place, and time. No apparent distress. Thepatient is here today with his , Kim. ENT: Pupils equal, round, and reactive to light. Sclera anicteric. Oral cavity inspection reveals moist mucous membranes and no visible lesions. Neck: Supple. Lymph: No palpable cervical, supraclavicular, infraclavicular, or axillary adenopathy. Spine: There is no tenderness to palpation of the spine. Lungs: Clear to auscultation bilaterally. Heart: Regular rate and rhythm. Normal S1 and S2. No murmurs. Abdomen: Soft, non-tender, non-distended. Normal active bowel sounds are present. Extremities: No edema. Neurologic: Gait is normal. Rectal: Deferred. DIAGNOSTICS I reviewed the pathology report from the patient's prostate biopsy on October 10, 2020. I reviewed the bone scan and the CT scan of the abdomen and pelvis from November 10, 2020. ASSESSMENT / PLAN #1 Stage IIC (cT2c, cN0, cM0, PSA: 12.2, Grade Group: 3) adenocarcinoma of the prostate #2 Erectile dysfunction, preceding radiotherapy #3 Occasional overflow urinary incontinence #4 Obstructive uropathy I had a detailed discussion with the patient and his regarding the risks, benefits, and alternatives of radiotherapy in this setting. I consulted the NCCN guidelines in formulating my recommendations and reviewed these with him. The patient has already discussed prostatectomy with Dr. Espino; hence, I focused my discussion on radiotherapy options. These include: 1. External beam radiotherapy alone to a dose of 60 Gy in 20 fractions or 70.2 Gy in 26 fractions utilizing IMRT; 2. A combination of external beam radiotherapy to a dose of 45 Gy in 25 fractions or 37.5 Gy in 15 fractions utilizing IMRT and 1 high dose rate prostate brachytherapy boost implant; 3. Stereotactic body radiation therapy to a dose of 36.25 to 40 Gy in 5 fractions. Because of his urinary obstructive symptoms, I do not think he is a good candidate for either brachytherapy or stereotactic body radiotherapy. Given his unfavorable-intermediate risk disease, I would recommend the addition of a short course (4to 6 months) androgen deprivation therapy if I were to treat him with external beam therapy alone. We discussed the results of the ProtecT trial that randomized patients to surgery, radiotherapy, or observation (Bryanna et al, [facility], 2016) that showed that surgery and radiotherapy were equally efficacious. We also discussed the fact that surgical salvage is typically not possible after any form of prostate radiotherapy. I also discussed the indications for adjuvant radiotherapy following prostatectomy as well as salvage radiotherapy in the setting of rising PSA. I discussed the logistics as well as the acute and chronic side effects associated with treatment indetail including acute side effects of urinary frequency and urgency, dysuria, bowel frequency and urgency, diarrhea, gaseous bloating and discomfort, radiation dermatitis, loss of pubic hair, and fatigue. Long-term side effects include common mild increase in urinary and bowel frequency, as well as more rare side effects including radiation cystitis (5% risk or less), radiation proctitis (5% or lessrisk), urethral stenoses requiring dilatation (1% risk or less), fistula formation (less than 1% risk), increasing arthritis of the hips, small bowel obstruction, and a very small risk of secondary malignancy. The patient is also likely to experience erectile dysfunction. I also discussed the side effects of androgen deprivation therapy, which include hot flashes, fatigue, bone loss with prolonged use, mood changes, gynecomastia, loss of muscle strength and power, and complete loss of erectile function until his testosterone levels normalize (which can take up to a year after ADT is discontinued), a low risk of cardiovascular events (5% or less), and a low increased risk of Alzheimer or other dementia (4-6%). He will take calcium and vitamin-D supplementation while he is on ADT. The patient is eligible for the ???COMPPARE: A Prospective Comparative Study of Outcomes with Protonand Photon Radiation in Prostate Cancer?? trial (IRB# [id number]). I did not discuss this with him at our visit. We will discuss it when he returns for a CT simulation. After this discussion, I provided the patient with a written summary of my recommendations. His questions and those of his spouse were answered to their verbalized satisfaction. The patient verbally stated that he would like to proceed with treatment. He would like to have a 4 month Eligard injection at [facility] in [place]. A PSA and testosterone level will be drawn prior to the injection. Marita start bicalutamide 50 mg daily after he receives that injection on the same day. He will for a CT simulation in approximately 8 weeks. We discussed our bladder filling and bowel emptying protocol.The patient and his spouse verbalized satisfaction with this plan. My thanks to Drs. Espino, Adi, and Kenneth for the opportunity to participate in this patient's care. EDUCATION Ready to learn, no apparent learning barriers were identified; learning preferences include listening. Explained diagnosis and treatment plan; patient expressed understanding of the content. I have spent 60 minutes with this patient today with 55 minutes spent in counseling the patient. Signed by: Enoch Beavers M.D. 01/11/2021 9:[address] On[address] [facility] [address] [place] [address] documented in this encounter Plan of Treatment Scheduled Orders Name Type Priority Associated Order Schedule Diagnoses Prior Auth Rad Tx Radiation Oncology Routine Primary Malignant Ordered: 01/11/2021 Neoplasm Of Prostate (HCC) Management Visit Radiation Oncology Routine Primary Malignant 10 Occurrences Neoplasm Of starting 2020 Prostate (HCC) until 022 Scheduled Referrals Name Type Priority Associated Diagnoses Order S [facility] Radiation Oncology Outpatient Referral Routine Ex pected: office visit 03/13/2021 (clinic) (Approximate), Expires: 01/12/2024 documented as of this encounter Results Initial Rad Onc Treatment Planning CT Simulation (03/27/2021 3:09 PM COMPUTER LABORATORY TECHNICIAN) Specimen (Source) Anatomical Location Collection Method / Collectio n Time Received Time / Laterality Volume Narrative [facility] - 03/27/2021 3:09 PM COMPUTER LABORATORY TECHNICIAN Ruthie Colon, RTT ? 03/27/2021 ??3:10 PM Initial Rad Onc Treatment Planning CT Si mulation Date/Time: 03/27/2021 3:09 PM Performed by: Enoch Beavers M.D. Authorized by: Enoch Beavers M.D. Enoch Beavers M.D. RADIATION ONCOLOGY ORDERABLE S Performing Organization Address City/State/[facility] Code Phon e Number [facility] documented in this encounter Visit Diagnoses Diagnosis Primary Malignant Neoplasm Of Prostate ( HCC) - Primary Primary Malignant Neoplasm Of Prostate ( HCC) documented in this encounter
--- OUTSIDE RECORDS SUMMARY | 2022-01-18 11:15 | XMS_ITS | Encounter Summary ---
:1940 Author Organization [facility] Address [address] [place] [address] Care Team Providers Name Role Phone Unavailable Primary Care Provider Unavailable Reason for Referral Outpatient (Routine) - Closed Specialty Diagnoses / Procedures Referred By Contact Refer red To Contact Radiation Oncology Enoch Beavers M .D. [address] [address] Referral ID Status Reason Start Date Expiration Date Visits Requ ested Visits Authorized [id number] Closed 01/11/2021 01/11/2022 1 1 Scheduling Instructions Prior to simulation for consent ERY MECHANIC Reason for Visit Outpatient (Routine) - Closed Specialty Diagnoses / Procedures Referred By Contact Refer moy To Contact Radiation Oncology Enoch Beavers M .D. [address] [address] Referral ID Status Reason Start Date Expiration Date Visits Requ ested Visits Authorized [id number] Closed 01/11/2021 01/11/2022 1 1 Encounter Details Date Type Department Care Team Description 03/27/2021 Hospital Encounter Department of Enoch Beavers Malignant Radiation Oncology Nereida Hamilton Neoplasm Of Prostate in [address] (HCC) (Primary Dx) [place], [place] [address] [facility] [address] [place], [place] [phone] (Work) [phone] Social History Tobacco Use Types Packs/Day Years Used Date Smoking Tobacco: Never Assessed Sex Assigned at Date Recorded Not on file documented as of this encounter Last Filed Vital Signs Vital Sign Reading Time Taken Comments Blood Pressure 136/53 03/27/2021 1:58 PM BATTERY MECHANIC Pulse 75 03/27/2021 1:58 PM BATTERY MECHANIC Temperature 36.3 ??C (97.4 ??F) 03/27/2021 1:58 PM BATTERY MECHANIC Respiratory Rate - - Oxygen Saturation - - Inhaled Oxygen Concentration - - Weight 108 kg (237 lb 14 oz) 03/27/2021 1:58 PM BATTERY MECHANIC Height - - Body Mass Index 34.13 01/11/2021 3:00 PM CDT documented in this [...] encounter Progress Notes Enoch Beavers M.D. - 03/27/2021 2:00 PM CST SUBJECTIVE REASON FOR VISIT 1. Primary Malignant Neoplasm Of Prostate (HCC) HISTORY OF PRESENT ILLNESS Mr. Rudy Tejada (pronounced [place]) is an 81 y.o. 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 I saw him in consultation on January 11, 2021. He returns for a CT simulation. His oncologic history is as follows: 1. [...] lateral apex of the prostate demonstrated adenocarcinoma, [place] 3+3=6, discontinuously involving 40% of the length of the core, perineural invasion not seen. Pathology of the left base of the prostate demonstrated adenocarcinoma, [place] 3+4=7, involving 90% of the length of [...] right mid of the prostate demonstrated adenocarcinoma, [place] 3+4=7, involving 20% of the length of the core, perineural invasion not seen. Pathology of the right apex of the prostate demonstrated adenocarcinoma, [place] 3+4=7, involving 20% of the length of the core, perineural invasion not seen. Pathology of the right lateral mid of the prostate demonstrated adenocarcinoma, [place] 3+4=7, involving 40% of the length of [...] interested in consultation with Radiation Oncology in [place]. Dr. Espino discussed that he would typically advise 6 months of concurrent androgen deprivation therapy and the patient was given his business card to set up an Eligard injection ifhe decides to proceed with radiation. 10. January [...] bicalutamide 50 mg daily for 3 weeks. INTERVAL HISTORY The patient reports he is currently feeling well. He has very occasional overflow urinary incontinence that occurs approximately once every 2 months. He reports nocturia x3 as well as multiple obstructive urinary symptoms including incomplete emptying, frequency, urgency, and weak stream. These are unchanged since starting androgen deprivation therapy. He has occasional hot flashes but they are mild and not bothersome to him. He had 2 bowel movements this morning. He denies any dysuria, hematuria, melena, hematochezia, dyschezia, hemorrhoids, fecal incontinence, or bone pain. He has had erectile dysfunction for the past 5 years. The patient's ECOG performance status is 0. AUA SYMPTOM INDEX January 11, 2021: 24 (4, 4, 3, 4, 4, 2, 3) March 27, 2021: 27 (4, 4, 4, 4, 4, 4, 3) IIEF-5 January 11, 2021: 8 (2, 2, 1, 1, 2) indicative of moderate erectile dysfunction. March 27, 2021: 5 (1, 1, 1, 1, 1) indicative of severe erectile dysfunction. REVIEW OF SYSTEMS Review of [...] = as good as can be): 7 OBJECTIVE BP (!) 136/53 (BP Location: Left arm, Patient Position: Sitting, Cuff Size: Large) Pulse 75 Temp36.3 ??C (Temporal) Wt 108 kg BMI 34.13 kg/m?? PHYSICAL EXAM General: Patient is awake, alert, and oriented to person, place, and time. No apparent distress. Thepatient is here today with his , Kim. ASSESSMENT / PLAN #1 Stage IIC (cT2c, cN0, cM0, PSA: 12.2, Grade Group: 3) adenocarcinoma of the prostate #2 Erectile dysfunction, preceding radiotherapy #3 Occasional overflow urinary incontinence #4 Obstructive uropathy #5 Androgen deprivation therapy initiated with Lupron 30 mg injection and bicalutamide 50 mg daily for 3 weeks on January 16, 2021 with no further therapy planned I again had a detailed discussion with the patient and his regarding the risks, benefits, and alternatives of radiotherapy in this setting. I recommend external beam radiotherapy alone to a dose of 60 Gy in 20 fractions or 70.2 Gy in 26 fractions utilizing IMRT with 4 months of androgen deprivation therapy I reviewed the logistics as well as the acute side effects associated with treatment in detail. For a complete listing of these, please see my initial consultation note. The patient is eligible for the ???COMPPARE: A Prospective Comparative Study of Outcomes with Protonand Photon Radiation in Prostate Cancer?? trial (IRB# [id number]). We discussed the similarities anddifferences of proton in photon radiation. I explained that this trial is seeking to evaluate in a prospective fashion if proton therapy is superior to photon therapy. We would be treating him with photon treatment at our site. The patient is in good health and has an ECOG performance status of 0. He is in the upper middle quartile (top 50-75%) of health and has a life expectancy of 8.28 years or more per the Social Security actuarial life tables. The patient is considering enrollment. I provided him with a consent form and reviewed it with him in detail. Our protocol coordinator, Barbra Voss, will contact him by phone later this week to check on his interest in trial enrollment. After this discussion, the patient's questions and those of his spouse were answered to their verbalized satisfaction. The patient verbally stated that he would like to proceed with treatment and signed the consent form. He will have a CT simulation and planning MRI today. We will endeavor to begin treatment on Monday, April 05, 2021. We discussed our bladder filling and bowel emptying protocol.The patient and his spouse verbalized satisfaction with this plan. CONSENT Discussed the risks, benefits, alternatives, and the necessity of other members of the healthcare team participating in the procedure. All questions answered and consent given. I have spent 30 minutes with this patient today all of which was spent in counseling the patient. Signed by: Enoch Beavers M.D. 03/27/2021 4:24 PM BATTERY MECHANIC Radiation Oncology [facility] [address] [place] [address] ERY MECHANIC documented in this encounter Miscellaneous Notes Addendum Note - Siri Betancourt, C.N.AGuy - 03/27/2021 2:00 PM BATTERY MECHANIC Encounter addended by: Siri Betancourt C.NChica on: 03/28/2021 7:31 AM Actions taken: Letter saved ERY MECHANIC Addendum Note - Enoch Beavers M.D. - 03/27/2021 2:00 PM BATTERY MECHANIC Encounter addended by: Enoch Beavers M.D. on: 03/31/2021 9:53 PM Actions taken: Flowsheet accepted ERY MECHANIC documented in this encounter Plan of Treatment Scheduled Referrals Name Type Priority Associated Order Schedule Diagnoses Radiation Oncology Outpatient Referral Routine On ce for 1 office visit Occurrences sta rting (clinic) 03/27/2021 unti l 03/27/2021 documented as of this encounter Visit Diagnoses Diagnosis Primary Malignant Neoplasm Of Prostate ( HCC) - Primary documented in this encounter
--- OUTSIDE RECORDS SUMMARY | 2022-01-18 11:15 | XMS_ITS | Encounter Summary ---
:1940 Author Organization [facility] Address [address] [place] [address] Care Team Providers Name Role Phone Unavailable Primary Care Provider Unavailable Reason for Visit Reason Comments Med Refill Encounter Details Date Type Department Care Team Description 01/24/2021 Refill Department of Radiation Enoch Beavers M.D. Med Refill Oncology in [place], [facility] [address] [place] [address] [address] [facility] [place] [address] [phone] Social History Tobacco Use Types Packs/Day Years Used Date Smoking Tobacco: Never Assessed Sex Assigned at Date Recorded Not on file documented as of this encounter Plan of Treatment Not on filedocumented as of this encounter Visit Diagnoses Not on filedocumented in this encounter
--- OUTSIDE RECORDS SUMMARY | 2022-01-18 11:16 | XMS_ITS ---
:1940 Author Care Team Providers Name Role Phone ADAM LAMA MD Primary Care Provider [phone] Allergies Code Code System Name Reaction Severity Status Onset NKDA ? Medications Name Status Start Date Stop Date ? ? albuterol sulf 90 mcg/actuation breath activated powder inhaler, sensor Active ? Not available Inhale 2 puffs every 4 hours by inhalation route. Asprin Ec Low Dose 81 mg tablet,delayed release Active ? Not available Take 1 tablet every day by oral route. ceftriaxone 1 gram solution for injection Completed ? 12/26/2020 Take 1 g by injection route. metformin ER 500 mg tablet,extended release 24 hr Active ? Not available TAKE 1 TABLET BY MOUTH TWICE A DAY . FOLLOWUP IN 2020 . pantoprazole 40 mg tablet,delayed release Active ? Not available rosuvastatin 10 mg tablet Active ? Not av ailable TAKE 1 TABLET BY MOUTH DAILY. valsartan 80 mg-hydrochlorothiazide 12.5 mg tablet Active ? Not available TAKE 1 TABLET BY MOUTH EVERY DAY Problems None recorded. Procedures Date Name Performed by ? 09/07/2010 Us Urine Capacity Measure Information no t available Notes: 09/07/2010 - US URINE CAPACITY MEASURE 02/09/2010 Repair Rotator Cuff Chronic Information not available Notes: 02/09/2010 - REPAIR ROTATOR CUF F CHRONIC 10/31/2020 NM, Bone Scan, Whole Body [facility] Radiology Department [address] [place] [address] (Work [address]) 10/31/2020 CT, Abdomen + Pelvis, W/ Contrast [facility] Radiology Department [address] [place] [address] (Work Place) Results Lab Results None recorded. Past Encounters 12/26/2020 Carcinoma of Prostate Reji Espino MD: [id number] [facility], [address], [place] [address], Ph. 10/31/2020 Raised Prostate Specific Antigen; Malign ant Tumor of Prostate Josiah Joshi MD: [address] [place] [address], Ph. 10/04/2020 Raised Prostate Specific Antigen Josiah Joshi MD: [address] [place] [address], Ph. Social History Tobacco Smoking Status Former Smoker (1 pack per day) Notes : QUIT: 05/06/1982 Vaccine List None recorded. Plan of Care Reminders Provider Appointments None recorded. ? ? Lab None recorded. ? ? Referral None recorded. ? ? Procedures None recorded. ? ? Surgeries None recorded. ? ? Imaging None recorded. ? ? Vitals 12/26/2020 04:00PM CA TALK Height Weight BMI 5 ft 10 in 225 lbs 32.3 kg/m2 10/31/2020 11:30AM ESTABLISHED PHONE VISIT 20 Height Weight BMI 5 ft 10 in 225 lbs 32.3 kg/m2 10/04/2020 03:00PM TRUS 30 Height Weight BMI 5 ft 10 in 225 lbs 32.3 kg/m2
--- NOTE | 2022-01-18 11:25 | ED.DIZZY ---
HPI - Dizziness General Date Seen: 01/18/22 Chief Complaint: Dizziness/Vertigo Stated Complaint: Vertigo dizzy spells Time Seen by Provider: 01/18/22 11:07 Source: patient and family Mode of arrival: ambulatory Limitations: no limitations History of Present Illness HPI Narrative: 81-year-old gentleman presents here for evaluation of dizziness, this is been for the last couple days, whenever he rolls over in bed, or changes position he knows he has approximately 30 seconds of dizziness it feels like he might be on a ship. Does past, any feels fairly well in between this. He does have a little bit of nausea with this but has not vomited. He denies any headache, neck pain, stiffness, fevers chills, numbness tingling weakness in hands or feet. His is here with him in the ER and corroborates the fact that he has been speaking normally, and does not have any visual changes. He has not fallen, and feels when these occur that he might be off balance but otherwise feels his balance has been good. His appetite has been good, denies any chest pain any shortness of breath associated this and any abdominal pain diarrhea or problems with drinking fluids. Denies a history of this in the past, is not drink alcohol at all. On review of his chart I do see there was and note from a TIA in 2012. Related Data Home Medications Medication Instructions Recorded Confirmed aspirin 81 mg tablet,delayed 81 mg PO QDAY 11/07/21 release (Enteric Coated Aspirin) betamethasone dipropionate 0.05 % 1 applic topical BID PRN 11/07/21 topical cream cholecalciferol (vitamin D3) 25 5,000 unit PO QDAY 11/07/21 mcg (1,000 unit) capsule cinnamon bark 500 mg capsule 1,000 mg PO QDAY 11/07/21 (Cinnamon) coenzyme Q10 10 mg capsule 10 mg PO QDAY 11/07/21 metformin 500 mg tablet,extended 500 mg PO BID 11/07/21 release 24 hr multivitamin (Multiple Vitamins 1 tab PO QDAY 11/07/21 tablet) pantoprazole 40 mg tablet,delayed 40 mg PO QDAY 11/07/21 release rosuvastatin 10 mg tablet 10 mg PO QDAY 11/07/21 valsartan 80 1 tab PO QDAY 11/07/21 mg-hydrochlorothiazide 12.5 mg tablet Allergies Allergy/AdvReac Type Severity Reaction Status Date / Time cat hair extract Allergy Mild runny Uncoded 11/07/21 09:04 nose, itchy eyes seasonal Allergy Mild sneezing, Uncoded 11/07/21 09:04 congestion Review of Systems Status of ROS: Reports: 10 or more systems reviewed and unremarkable except as noted in History and below [facility] Medical History 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 Surgical History History of colonoscopy History of total replacement of left shoulder joint Family History (Reviewed 01/18/22 @ 11: by Herber Vora MD) Father Coronary artery disease Social History (Reviewed 01/18/22 @ 11: by Herber Vora MD) Narrative: Has 3 children Non-smoker Smoking Status: Former smoker What tobacco products do you use: cigarettes Smoking quit date/years: >15 years ago Do you use any of these nicotine containing products: None Second hand tobacco smoke exposure: No How often do you have a drink containing alcohol: 2-4 times a month How many standard drinks containing alcohol do you have on a typical day: 1 or 2 How often do you have six or more drinks on one occasion: Never AUDIT-C Alcohol total score: 2 Non-prescribed substance use: denies use Exam Narrative: Exam Narrative: On examination I find him sitting on the gurney in no apparent distress he is alert oriented very chatty. His is attending him here today, pupils are equal round reactive to light he does have horizontal nystagmus noted with [address] Green or 3-12 are otherwise normal. Visual bauer are normal on testing his pupils are equal round reactive to light. His TMs are normal bilaterally, carotid upstrokes are equal, his neck is supple full range of motion of flexion extension I did not rotate his neck. There is no palpable tenderness around his neck, his chest is good air entry bilaterally with no wheezing crackles noted easy respirations are noted, cardiovascular exam reveals a normal S1-S2 there is no S3-S4 clicks murmurs or gallops, chest is palpably normal. Abdomen is soft and obese there is no guarding no past splenomegaly bowel sounds are normal. Neurologically fine more rooms and fingers nose testing is normal. He is able to tandem walk for me with no problems at all villasenor normal as upper lower extremities both distal and proximal with no deficits. Sensations normal also. Appears to be right-hand Const: Vital Signs, click to edit/add: Vital Signs - 24 hr 01/18/22 10:40 Temperature 98.1 F Pulse Rate [Pulse Oximeter] 77 Respiratory Rate 18 Blood Pressure [Ri ght Upper Arm] 156/80 H Pulse Oximetry 94 Oxygen Delivery Me thod Room Air Course Reevaluation(s) Reevaluation #1: I discussed with the patient, he is feeling better, he is able to walk around and did well on his road test. His CTA and CT of his head neck, showed us is moderately severe to severe narrowing of his vertebral arteries, this is likely what they were discussing with me before. He needs to stand his aspirin and by no means should any whenever manipulate his neck. If he has ongoing signs and symptoms of the vertigo, then I think being taught how to do self movement of the vertigo maneuvers can be done by PT, but I will leave this up to his physician discussed with him. A little bit a low-dose meclizine can also be helpful, I did warn him about effects with his prostate with this. If he is unable to urinate. Time: 14:03 Vital Signs Vital signs: Initial Vital Signs Temperature 98.1 F 01/18/22 10:40 Temperature Source Temporal Artery Scan 01/18/22 10:40 Pulse Rate 77 01/18/22 10:40 Pulse Rhythm 01/18/22 10:40 Respiratory Rate 18 01/18/22 10:40 Blood Pressure 156/80 H 01/18/22 10:40 Blood Pressure Mean 105 01/18/22 10:40 Pulse Oximetry 94 01/18/22 10:40 Oxygen Delivery Method 01/18/22 10:40 Vital Signs Temperature 98.1 F 01/18/22 10:40 Pulse Rate 77 01/18/22 10:40 Respiratory Rate 18 01/18/22 10:40 Blood Pressure 156/80 H 01/18/22 10:40 Pulse Oximetry 94 01/18/22 10:40 Oxygen Delivery Method 01/18/22 10:40 Temperature 98.1 F 01/18/22 10:40 Pulse Rate 77 01/18/22 10:40 Respiratory Rate 18 01/18/22 10:40 Blood Pressure 156/80 H 01/18/22 10:40 Pulse Oximetry 94 01/18/22 10:40 Oxygen Delivery Method 01/18/22 10:40 MDM - Dizziness MDM Narrative Medical decision making narrative: Life-threatening differential diagnosis considered include stroke, coronary artery disease, pneumonia, and heart failure. Other differential diagnosis include but are not limited to electrolyte imbalances, anemia, medication reactions, and urinary tract infection Given what I am seeing her examination I have a lower incidence of possibility of stroke, given his NIH Screen is 0. I think this is more likely to vertigo, most likely BPV. I would however recommend once we get the test, as there is a history of having a recent manipulation of his neck, by chiropractor 3 days ago in this occurring within the next 12 hours that we consider doing a CT and CTA. Further workup pending. Medical Records Attestation: I reviewed the patient's medical records. Lab Data Attestation: I reviewed the patient's lab results. Labs: Lab Results 01/18/22 01/18/22 01/18/22 Range/Units 11:15 11:15 11:15 WBC 5.64 (4.50-11.00) K/uL RBC 4.76 (4.30-5.90) m/uL Hgb 13.9 (13.5-17.5) gm/dL Hct 41.4 (37.0-53.0) % MCV 87 (80-100) fL MCH 29 (26-34) pg MCHC 34 (32-36) gm/dL RDW Coeff of Mona 12.7 (11.5-15.5) % Plt Count 212 (140-440) K/uL Neut % (Auto) 73.3 H (42.0-72.0) % Lymph % (Auto) 16.8 L (20-44) % [place] % (Auto) 7.4 (0.0-11.0) % Eos % (Auto) 1.6 (0.0-7.0) % Baso % (Auto) 0.7 (0.0-3.0) % Neut # (Auto) 4.10 (1.7-7.0) K/uL Lymph # (Auto) 0.90 (0.90-2.90) K/uL [place] # (Auto) 0.40 (0.00-0.90) K/UL Eos # (Auto) 0.09 (0.00-0.50) K/uL Baso # (Auto) 0.04 (0.00-0.30) K/uL Abs Immat Gran (auto) 0.01 (0.00-0.30) K/uL Sodium 134 L (135-149) mmol/L Potassium 4.2 (3.6-5.1) mmol/L Chloride 97 (96-114) mmol/L Carbon Dioxide 24 (20-32) mmol/L BUN 14 (7-30) mg/dL Creatinine 0.9 (0.5-1.5) mg/dL Estimated Creat Clear 58.92 Estimated GFR 86 ml/min Glucose 115 (60-115) mg/dL Calcium 9.7 (8.4-10.6) mg/dL SARS-CoV-2 (PCR) (Negative) Influenza Type A (PCR) (Negative) Influenza Type B (PCR) (Negative) RSV (PCR) (Negative) POC Troponin I 0.01 (0.01-0.04) ng/ml 01/18/22 Range/Units 11:19 WBC (4.50-11.00) K/uL RBC (4.30-5.90) m/uL Hgb (13.5-17.5) gm/dL Hct (37.0-53.0) % MCV (80-100) fL MCH (26-34) pg MCHC (32-36) gm/dL RDW Coeff of Mona (11.5-15.5) % Plt Count (140-440) K/uL Neut % (Auto) (42.0-72.0) % Lymph % (Auto) (20-44) % [place] % (Auto) (0.0-11.0) % Eos % (Auto) (0.0-7.0) % Baso % (Auto) (0.0-3.0) % Neut # (Auto) (1.7-7.0) K/uL Lymph # (Auto) (0.90-2.90) K/uL [place] # (Auto) (0.00-0.90) K/UL Eos # (Auto) (0.00-0.50) K/uL Baso # (Auto) (0.00-0.30) K/uL Abs Immat Gran (auto) (0.00-0.30) K/uL Sodium (135-149) mmol/L Potassium (3.6-5.1) mmol/L Chloride (96-114) mmol/L Carbon Dioxide (20-32) mmol/L BUN (7-30) mg/dL Creatinine (0.5-1.5) mg/dL Estimated Creat Clear Estimated GFR ml/min Glucose (60-115) mg/dL Calcium (8.4-10.6) mg/dL SARS-CoV-2 (PCR) Negative SARS-CoV-2 (Negative) Influenza Type A (PCR) Negative PCR FLU A (Negative) Influenza Type B (PCR) Negative PCR FLU B (Negative) RSV (PCR) Negative PCR RSV (Negative) POC Troponin I (0.01-0.04) ng/ml Imaging Data CT- Other: Radiologist's impression: Patient: RICO OLEA Facility:?[facility] Patient ID:?[id number] Site Patient ID:?[id number]. Site :?[id number] Study:?CT Head WITHOUT-01/18/2022 12:46:06 PM Ordering Physician:Lin Craven Final Report: DATE: 01/18/2022. CLINICAL HISTORY: Vertigo and dizziness for several days. TECHNIQUE: Standard helical CT image acquisition through the head and neck was performed after intravenous contrast bolus enhancement. Multiplanar reconstructed images were performed and interpreted. COMPARISON: None available. FINDINGS: There is irregular atherosclerotic plaque within the aortic arch. The origins of the great vessels from the aortic arch are patent, noting mild to moderate stenosis at the origin of the left subclavian artery. Severe and moderate to severe stenosis at the origins of the left and right vertebral arteries, respectively. The common carotid arteries are patent. There is mild (<50%) atherosclerotic stenoses of the bilateral proximal ICAs by NASCET criteria. NASCET criteria. The more distal cervical segments of the internal carotid arteries are patent. The cervical segments of the vertebral arteries are patent. No intracranial proximal large vessel occlusion. Intracranial atherosclerotic disease with short-segment mild luminal stenoses of the proximal and mid P2 segments of the bilateral posterior cerebral arteries. No evidence of cerebral aneurysm or findings to suggest an arteriovenous shunting lesion. IMPRESSION: 1. Scattered intracranial atherosclerotic disease without proximal large vessel occlusion or flow-limiting luminal stenosis. 2. Mild (<50%) atherosclerotic stenoses of the bilateral proximal ICAs by NASCET criteria. 3. 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 Please note that all CT scans at this facility use dose modulation, iterative reconstruction, and/or weight-based dosing when appropriate to reduce radiation dose to as low as reasonably achievable. Dictated by Kirk Briscoe MD @ 01/18/2022 1:19:11 PM (Electronic Signature) ECG Data Attestation: I personally reviewed and interpreted this ECG as follows: ECG interpretation date: 01/18/22 Prior ECG tracings: available for review Interpretation: Sinus rhythm with PACs, ventricular rate is 82, no acute ST wave changes, normal QRS QT and W[place] interval noted Discharge Plan Discharge Clinical Impression: Vertigo Benign paroxysmal positional vertigo Qualifiers: Laterality: unspecified laterality Qualified Code(s): H81.10 - Benign paroxysmal vertigo, unspecified ear Vertebral artery narrowing Qualifiers: Laterality: bilateral Qualified Code(s): 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 Follow-up with primary care within the next week, they can refer you to physical therapy to learn techniques to move those calcified or lifts around. Return to the emergency room if increasing nausea vomiting numbness tingling weakness, visual or speech changes, this is not characteristic of was are seeing here today. Continue on her aspirin 81 mg, there is some narrowing in the vertebral arteries in her neck, I wonder if that suture talking about. No chiropractic manipulation of your neck is suggested. Prescriptions: No Action betamethasone dipropionate 0.05 % cream 1 applic topical BID PRN metformin 500 mg tablet extended release 24 hr 500 mg PO BID pantoprazole 40 mg tablet,delayed release (DR/EC) 40 mg PO QDAY rosuvastatin 10 mg tablet 10 mg PO QDAY valsartan-hydrochlorothiazide 80-12.5 mg tablet 1 tab PO QDAY aspirin [Enteric Coated Aspirin] 81 mg tablet,delayed release (DR/EC) 81 mg PO QDAY cholecalciferol (vitamin D3) 25 mcg (1,000 unit) capsule 5,000 unit PO QDAY cinnamon bark [Cinnamon] 500 mg capsule 1,000 mg PO QDAY coenzyme Q10 10 mg capsule 10 mg PO QDAY multivitamin [Multiple Vitamins] Tablet 1 tab PO QDAY Follow Up/Referrals: Miguel Cooper MD [Primary Care Provider] - Keiry Cervantes DO [Staff Physician] - Stand Alone Forms: [facility] Info Instructions
[2022-01-18 11:27] LABS: Basophils Absolute Auto 0.04 K/uL (0.00-0.30); Basophils Percent Auto 0.7 % (0.0-3.0); Eosinophils Absolute Auto 0.09 K/uL (0.00-0.50); Eosinophils Percent Auto 1.6 % (0.0-7.0); Hematocrit 41.4 % (37.0-53.0); Hemoglobin* 13.9 gm/dL (13.5-17.5); Immature Granulocytes Abs Auto 0.01 K/uL (0.00-0.30); Lymphocytes Percent Auto 16.8 % (20-44); Mean Corpuscular HGB Conc 34 gm/dL (32-36); Mean Corpuscular Hemoglobin 29 pg (26-34); Mean Corpuscular Volume 87 fL (80-100); Monocytes Percent Auto 7.4 % (0.0-11.0); Neutrophils Percent Auto 73.3 % (42.0-72.0); Platelet Count* 212 K/uL (140-440); RDW Coefficient of Variation % 12.7 % (11.5-15.5); Red Blood Count 4.76 m/uL (4.30-5.90); White Blood Count* 5.64 K/uL (4.50-11.00)
[2022-01-18] MEDS: 0.9 % SODIUM CHLORIDE 500 ML 500 ML IV (11:36)
[2022-01-18 11:38] LABS: Slide Review Reflex No; Troponin, Point-of-Care* 0.01 ng/ml (0.01-0.04)
[2022-01-18 11:43] LABS: Chloride* 97 mmol/L (96-114); Potassium* 4.2 mmol/L (3.6-5.1); Sodium* 134 mmol/L (135-149)
[2022-01-18 11:46] LABS: Blood Urea Nitrogen* 14 mg/dL (7-30); Carbon Dioxide* 24 mmol/L (20-32); Creatinine* 0.9 mg/dL (0.5-1.5); Est. Creatinine Clearance* 58.92; Estimated Glomerular Filt Rate 86 ml/min; Glucose* 115 mg/dL (60-115)
[2022-01-18 11:47] LABS: Calcium* 9.7 mg/dL (8.4-10.6)
--- NOTE | 2022-01-18 12:02 | CRLHL7_ITS ---
For Patients: As a result of the Century Cures Act, medical imaging exams and procedure reports are released immediately into your electronic medical record. You may view this report before your referring provider. If you have questions, please contact your health care provider. DATE: 01/18/2022. CLINICAL HISTORY: Vertigo and dizziness. TECHNIQUE: Standard helical CT image acquisition of the brain was performed. COMPARISON: None available. FINDINGS: There is no intracranial hemorrhage. No extra-axial collection, mass effect, or midline shift. Willard-white matter differentiation is preserved. Age-appropriate mild generalized parenchymal volume loss with resulting prominence of cerebral sulci and the ventricular system. The calvarium is unremarkable. The orbits are unremarkable. Minimal mucosal thickening of the bilateral maxillary and sphenoid sinuses. Mucosal thickening and partial opacification of the bilateral ethmoid air cells. The mastoid air cells are unremarkable. The soft tissues are unremarkable. IMPRESSION: 1. No CT evidence of acute intracranial abnormality. 2. Age-appropriate mild generalized parenchymal volume loss. 3. Paranasal sinus disease, as above. Please note that all CT scans at this facility use dose modulation, iterative reconstruction, and/or weight-based dosing when appropriate to reduce radiation dose to as low as reasonably achievable. Dictated by Kirk Briscoe MD @ 01/18/2022 1:10:57 PM (Electronically Signed)
[2022-01-18 12:04] LABS: PCR FLU A Negative PCR FLU A (Negative); PCR FLU B Negative PCR FLU B (Negative); PCR RSV Negative PCR RSV (Negative)
[2022-01-18 12:11] LABS: SARS PCR* Negative SARS-CoV-2 (Negative)
[2022-01-18] MEDS: MECLIZINE HCL 25 MG TABLET PO (12:38)
[2022-01-18 14:08] VITALS: BP 132/73; PULSE 72; RESP 20; TEMP 36.6; O2SAT 93
== END 2022-01-18 14:17 | disposition home or self-care (01) ==
PROVIDERS: Emergency Provider Family Medicine; PCP Family Medicine
DX: H81.10 Benign paroxysmal vertigo, unspecified ear (principal)
CPT/HCPCS: 36415; 70450; 70496; 70498; 80048; 84484; 85025; 87502; 87634; 87635; 93005; 96360; 99284; 99285; A9270; J7120; Q9967

== ENCOUNTER 2022-02-05 13:22 | Outpatient (CLI) | payer MEDICARE, SELFPAY ==
--- OUTSIDE RECORDS SUMMARY | 2022-02-05 13:24 | XMS_ITS | Clinical Summary ---
:1940 Author Organization [facility] [place] [address] Care Team Providers Name Role Phone Nonstaff, [...] 36.7 ??C (98 ??F) 05/12/2012 8:00 AM WEB SIZER Respiratory Rate 16 05/12/2012 8:00 AM WEB SIZER Oxygen Saturation 94% 01/16/2021 11:21 AM CDT Inhaled Oxygen Concentration - - Weight 108.6 kg (239 lb 8 oz) 01/16/2021 11:21 AM CDT Height 177.8 cm (5' 10) 05/11/2012 2:47 PM WEB SIZER Body Mass Index 34.36 05/11/2012 2:47 PM WEB SIZER Plan of Treatment Health Maintenance Due Date [...] Group MEDICARE PART A MEDICARE PART A [id number] 2006-Presen ATTN: CLAIMS - HB USE ONLY HB ONLY t [address] [place] [address] [employer] MR [employer] CHOICE [id number] 2019-Present [address] [address] [place] [address] (Work) [id number] Advance Directives Latest Code Status on File Code Status Date Activated Date Inactivated Comments Full Code 05/11/2012 6:11 PM 05/12/2012 1:45 PM Care Teams Coverage Specialist Relationship Specialty Start Date End Date Nonstaff, Doctor PCP - General 05/16/12 NON STAFF DOCTOR
--- OUTSIDE RECORDS SUMMARY | 2022-02-05 13:25 | XMS_ITS | Encounter Summary ---
:1940 Author Organization [facility] Address [address] [place] [address] Care Team Providers Name Role Phone Unavailable Primary Care Provider Unavailable Reason for Visit Radiation Therapy (Routine) - Closed Specialty Diagnoses / Procedures Referred By Contact Refer red To Contact Diagnoses Primary Malignant Neoplasm Of Prostate (HCC) Enoch Beavers M.D. [facility] Procedures Prior Auth Rad Tx [place] IMRT SIMPLE [address] [place] [address] Referral ID Status Reason Start Date Expiration Date Visits Requ ested Visits Authorized [id number] Closed 03/30/2021 01/11/2022 26 26 Encounter Details Date Type Department Care Team Description 04/05/2021 Hospital Encounter Department of Radiation Jessica Beavers, [place] [address] [place] [phone] Social History Tobacco Use Types Packs/Day Years [...]
--- OUTSIDE RECORDS SUMMARY | 2022-02-05 13:25 | XMS_ITS | Encounter Summary ---
:1940 Author Organization [facility] Address [address] [place] [address] Care Team Providers Name Role Phone Unavailable Primary Care Provider Unavailable Reason for Referral Radiation Therapy (Routine) - Closed Specialty Diagnoses / Procedures Referred By Contact Refer red To Contact Diagnoses Primary Malignant Neoplasm Of Prostate (HCC) [facility].D. [facility] Procedures Management Visit [address] [place] [phone] Referral ID Status Reason Start Date Expiration Date Visits Requ ested Visits Authorized [id number] Closed 01/11/2021 01/11/2022 4 4 OL STILL OPERATOR Reason for Visit Radiation Therapy (Routine) - Closed Specialty Diagnoses / Procedures Referred By Contact Refer red To Contact Diagnoses Primary Malignant Neoplasm Of Prostate (HCC) Enoch Beavers M.D. [facility] Procedures Management Visit [address] [place] [phone] Referral ID Status Reason Start Date Expiration Date Visits Requ ested Visits Authorized [id number] Closed 01/11/2021 01/11/2022 4 4 Encounter Details Date Type Department Care Team Description 05/02/2021 Hospital Encounter Department of Jennifer Upton Malignant Radiation Oncology [place] Neoplasm Of Prostate in [place], [address] [place] [address] (HCC) [place], [place] [address] [facility] [address] [place], [place] [phone] (Work) [phone] Social History Tobacco Use Types Packs/Day Years Used Date Smoking Tobacco: Never Assessed Sex Assigned at Date Recorded Not on file documented as of this encounter Last Filed Vital Signs Vital Sign Reading Time Taken Comments Blood Pressure - - Pulse - - Temperature 36.4 ??C (97.5 ??F) 05/02/2021 11:23 AM BENZOL STILL OPERATOR Respiratory Rate - - Oxygen Saturation - - Inhaled Oxygen Concentration - - Weight 106 kg (233 lb 0.4 oz) 05/02/2021 11:23 AM BENZOL STILL OPERATOR Height - - Body Mass Index 33.44 [...] lateral base of the prostate demonstrated adenocarcinoma, [place] 3+4=7, involving 40% of the length of the core, perineural invasion not seen. ??Pathology of the left lateral apex of the prostate demonstrated adenocarcinoma, Alcon 3+3=6, discontinuously involving 40% of the length of the core, perineural invasion not seen. ??Pathology of the left base of the prostate demonstrated adenocarcinoma, [place] 3+4=7, involving 90% of the length of [...] right mid of the prostate demonstrated adenocarcinoma, [place] 3+4=7, involving 20% of the length of the core, perineural invasion not seen. ??Pathology of the right apex of the prostate demonstrated adenocarcinoma, [place] 3+4=7, involving 20% of the length of [...] interested in consultation with Radiation Oncology in [place]. ??Dr. Espino discussed that he would typically [...] testosterone lab draw anastacio done at [facility] in [place] in 3 months followed by a return visit here with Dr. Beavers a few days later. Orders for these were already placed. He was asked to contact us sooner with questions or concerns. He verbally expressed his understanding of the plan. Signed by: Zahraa Duong P.A.-C., M.S. 05/02/2021 11:49 AM BENZOL STILL OPERATOR OL STILL OPERATOR Associated attestation - Jennifer Upton M.D. - 05/02/2021 1:52 PM BENZOL STILL OPERATOR I saw and evaluated the patient and [...]
--- OUTSIDE RECORDS SUMMARY | 2022-02-05 13:25 | XMS_ITS | Encounter Summary ---
:1940 Author Organization [facility] Address [address] [place] [address] Care Team Providers Name Role Phone Unavailable Primary Care Provider Unavailable Reason for Visit Radiation Therapy (Routine) - Closed Specialty Diagnoses / Procedures Referred By Contact Refer red To Contact Diagnoses Primary Malignant Neoplasm Of Prostate (HCC) Enoch Beavers M.D. [facility] Procedures Prior Auth Rad Tx [place] IMRT SIMPLE [address] [place] [address] Referral ID Status Reason Start Date Expiration Date Visits Requ ested Visits Authorized [id number] Closed 03/30/2021 01/11/2022 26 26 Encounter Details Date Type Department Care Team Description 04/11/2021 Hospital Encounter Department of Radiation Jessica Beavers, [place] [address] [place] [phone] Social History Tobacco Use Types Packs/Day Years [...]
--- OUTSIDE RECORDS SUMMARY | 2022-02-05 13:25 | XMS_ITS | Encounter Summary ---
:1940 Author Organization [facility] Address [address] [place] [address] Care Team Providers Name Role Phone Unavailable Primary Care Provider Unavailable Reason for Visit Radiation Therapy (Routine) - Closed Specialty Diagnoses / Procedures Referred By Contact Refer red To Contact Diagnoses Primary Malignant Neoplasm Of Prostate (HCC) Enoch Beavers M.D. [facility] Procedures Prior Auth Rad Tx [place] IMRT SIMPLE [address] [place] [address] Referral ID Status Reason Start Date Expiration Date Visits Requ ested Visits Authorized [id number] Closed 03/30/2021 01/11/2022 26 26 Encounter Details Date Type Department Care Team Description 04/10/2021 Hospital Encounter Department of Radiation Jessica Beavers, [place] [address] [place] [phone] Social History Tobacco Use Types Packs/Day Years [...]
--- OUTSIDE RECORDS SUMMARY | 2022-02-05 13:25 | XMS_ITS | Encounter Summary ---
:1940 Author Organization [facility] Address [address] [place] [address] Care Team Providers Name Role Phone Unavailable Primary Care Provider Unavailable Reason for Visit Radiation Therapy (Routine) - Closed Specialty Diagnoses / Procedures Referred By Contact Refer red To Contact Diagnoses Primary Malignant Neoplasm Of Prostate (HCC) Enoch Beavers M.D. [facility] Procedures Prior Auth Rad Tx [place] IMRT SIMPLE [address] [place] [address] Referral ID Status Reason Start Date Expiration Date Visits Requ ested Visits Authorized [id number] Closed 03/30/2021 01/11/2022 26 26 Encounter Details Date Type Department Care Team Description 05/03/2021 Hospital Encounter Department of Radiation Jessica Beavers, [place] [address] [place] [phone] Social History Tobacco Use Types Packs/Day Years [...]
--- OUTSIDE RECORDS SUMMARY | 2022-02-05 13:25 | XMS_ITS | Encounter Summary ---
:1940 Author Organization [facility] Address [address] [place] [address] Care Team Providers Name Role Phone Unavailable Primary Care Provider Unavailable Reason for Referral Outpatient (Routine) - Closed Specialty Diagnoses / Procedures Referred By Contact Refer red To Contact Radiation Oncology Enoch Beavers M .D. [address] [address] Referral ID Status Reason Start Date Expiration Date Visits Requ ested Visits Authorized [id number] Closed 01/11/2021 01/11/2022 1 1 Scheduling Instructions Prior to simulation for consent MENT SHAPER Reason for Visit Outpatient (Routine) - Closed Specialty Diagnoses / Procedures Referred By Contact Refer moy To Contact Radiation Oncology Enoch Beavers M .D. [address] [address] Referral ID Status Reason Start Date Expiration Date Visits Requ ested Visits Authorized [id number] Closed 01/11/2021 01/11/2022 1 1 Encounter Details Date Type Department Care Team Description 03/27/2021 Hospital Encounter Department of Enoch Beavers Malignant Radiation Oncology [place] Neoplasm Of Prostate in [address] (HCC) (Primary Dx) [place], [place] [address]21 [facility] [address] [place], [place] [phone] (Work) [phone] Social History Tobacco Use Types Packs/Day Years Used Date Smoking Tobacco: Never Assessed Sex Assigned at Date Recorded Not on file documented as of this encounter Last Filed Vital Signs Vital Sign Reading Time Taken Comments Blood Pressure 136/53 03/27/2021 1:58 PM FILAMENT SHAPER Pulse 75 03/27/2021 1:58 PM FILAMENT SHAPER Temperature 36.3 ??C (97.4 ??F) 03/27/2021 1:58 PM FILAMENT SHAPER Respiratory Rate - - Oxygen Saturation - - Inhaled Oxygen Concentration - - Weight 108 kg (237 lb 14 oz) 03/27/2021 1:58 PM FILAMENT SHAPER Height - - Body Mass Index 34.13 [...] OF PRESENT ILLNESS Mr. Rudy Tejada (pronounced Will) is an 81 y.o. male with stage [...] lateral apex of the prostate demonstrated adenocarcinoma, Ivel 3+3=6, discontinuously involving 40% of the length of the core, perineural invasion not seen. Pathology of the left base of the prostate demonstrated adenocarcinoma, Ivel 3+4=7, involving 90% of the length of [...] right mid of the prostate demonstrated adenocarcinoma, Ivel 3+4=7, involving 20% of the length of the core, perineural invasion not seen. Pathology of the right apex of the prostate demonstrated adenocarcinoma, Alcon 3+4=7, involving 20% of the length of the core, perineural invasion not seen. Pathology of the right lateral mid of the prostate demonstrated adenocarcinoma, Ivel 3+4=7, involving 40% of the length of [...] interested in consultation with Radiation Oncology in [place]. Dr. Espino discussed that he would typically [...] Radiation in Prostate Cancer?? trial (IRB# [id number]). We discussed the similarities anddifferences of proton [...] by: Enoch Beavers M.D. 03/27/2021 4:24 PM FILAMENT SHAPER Radiation Oncology [facility] [address] [place] [address] MENT SHAPER documented in this encounter Miscellaneous Notes Addendum Note - Siri Betancourt, C.N.AGuy - 03/27/2021 2:00 PM FILAMENT SHAPER Encounter addended by: Siri Betancourt C.NChica on: 03/28/2021 7:31 AM Actions taken: Letter saved MENT SHAPER Addendum Note - Enoch Beavers M.D. - 03/27/2021 2:00 PM FILAMENT SHAPER Encounter addended by: Enoch Beavers M.D. on: 03/31/2021 9:53 PM Actions taken: Flowsheet accepted MENT SHAPER documented in this encounter Plan of Treatment Scheduled Referrals Name Type Priority Associated Order Schedule Diagnoses Radiation Oncology Outpatient Referral Routine On ce for 1 office visit Occurrences sta rting (clinic) 03/27/2021 unti l 03/27/2021 documented as of this encounter Visit Diagnoses Diagnosis Primary Malignant Neoplasm Of Prostate ( HCC) - Primary documented in this encounter
--- OUTSIDE RECORDS SUMMARY | 2022-02-05 13:25 | XMS_ITS | Encounter Summary ---
:1940 Author Organization [facility] Address [address] [place] [address] Care Team Providers Name Role Phone Unavailable Primary Care Provider Unavailable Reason for Visit Radiation Therapy (Routine) - Closed Specialty Diagnoses / Procedures Referred By Contact Refer red To Contact Diagnoses Primary Malignant Neoplasm Of Prostate (HCC) Enoch Beavers M.D. [facility] Procedures Prior Auth Rad Tx [place] IMRT SIMPLE [address] [place] [address] Referral ID Status Reason Start Date Expiration Date Visits Requ ested Visits Authorized [id number] Closed 03/30/2021 01/11/2022 26 26 Encounter Details Date Type Department Care Team Description 04/24/2021 Hospital Encounter Department of Radiation Jessica Beavers, [place]cology in [place] [address] [place] [phone] Social History Tobacco Use Types Packs/Day Years [...]
--- OUTSIDE RECORDS SUMMARY | 2022-02-05 13:25 | XMS_ITS | Encounter Summary ---
:1940 Author Organization [facility] Address [address] [place] [address] Care Team Providers Name Role Phone Unavailable Primary Care Provider Unavailable Reason for Visit Radiation Therapy (Routine) - Closed Specialty Diagnoses / Procedures Referred By Contact Refer red To Contact Diagnoses Primary Malignant Neoplasm Of Prostate (HCC) Enoch Beavers M.D. [facility] Procedures Prior Auth Rad Tx [place] IMRT SIMPLE [address] [place] [address] Referral ID Status Reason Start Date Expiration Date Visits Requ ested Visits Authorized [id number] Closed 03/30/2021 01/11/2022 26 26 Encounter Details Date Type Department Care Team Description 04/06/2021 Hospital Encounter Department of Radiation Jessica Beavers, [place]cology in [place] [address] [place] [phone] Social History Tobacco Use Types Packs/Day Years [...]
--- OUTSIDE RECORDS SUMMARY | 2022-02-05 13:25 | XMS_ITS | Encounter Summary ---
:1940 Author Organization [facility] Address [address] [place] [address] Care Team Providers Name Role Phone Unavailable Primary Care Provider Unavailable Reason for Visit Reason Comments Med Refill Encounter Details Date Type Department Care Team Description 07/30/2021 Refill Department of Radiation Enoch Beavers M.D. Med Refill Oncology in [place], [address] [place] [phone] 1821 [facility] [place] [address] [phone] Social History Tobacco Use Types Packs/Day Years Used Date Smoking Tobacco: Never Assessed Sex Assigned at Date Recorded Not on file documented as of this encounter Plan of Treatment Not on filedocumented as of this encounter Visit Diagnoses Not on filedocumented in this encounter
--- OUTSIDE RECORDS SUMMARY | 2022-02-05 13:25 | XMS_ITS | Encounter Summary ---
:1940 Author Organization [facility] Address [address] [place] [address] Care Team Providers Name Role Phone Unavailable Primary Care Provider Unavailable Reason for Visit Radiation Therapy (Routine) - Closed Specialty Diagnoses / Procedures Referred By Contact Refer red To Contact Diagnoses Primary Malignant Neoplasm Of Prostate (HCC) Enoch Beavers M.D. [facility] Procedures Prior Auth Rad Tx [place] IMRT SIMPLE [address] [place] [address] Referral ID Status Reason Start Date Expiration Date Visits Requ ested Visits Authorized [id number] Closed 03/30/2021 01/11/2022 26 26 Encounter Details Date Type Department Care Team Description 04/21/2021 Hospital Encounter Department of Radiation Jessica Beavers, [place]cology in [place] [address] [facility] 1821 [place] [phone] Social History Tobacco Use Types Packs/Day Years [...]
--- OUTSIDE RECORDS SUMMARY | 2022-02-05 13:25 | XMS_ITS | Encounter Summary ---
:1940 Author Organization [facility] Address [address] [place] [address] Care Team Providers Name Role Phone Unavailable Primary Care Provider Unavailable Reason for Visit Radiation Therapy (Routine) - Closed Specialty Diagnoses / Procedures Referred By Contact Refer red To Contact Diagnoses Primary Malignant Neoplasm Of Prostate (HCC) Enoch Beavers M.D. [facility] Procedures Prior Auth Rad Tx CT IMRT SIMPLE [address] [place] [address] Referral ID Status Reason Start Date Expiration Date Visits Requ ested Visits Authorized [id number] Closed 03/30/2021 01/11/2022 26 26 Encounter Details Date Type Department Care Team Description 04/27/2021 Hospital Encounter Department of Radiation Jessica Beavers, Oncology in [place] [address] [place] [phone] Social History Tobacco Use Types Packs/Day Years [...]
--- OUTSIDE RECORDS SUMMARY | 2022-02-05 13:25 | XMS_ITS | Encounter Summary ---
:1940 Author Organization [facility] Address [address] [place] [address] Care Team Providers Name Role Phone Unavailable Primary Care Provider Unavailable Reason for Visit Radiation Therapy (Routine) - Closed Specialty Diagnoses / Procedures Referred By Contact Refer red To Contact Diagnoses Primary Malignant Neoplasm Of Prostate (HCC) Enoch Beavers M.D. [facility] Procedures Prior Auth Rad Tx [place] IMRT SIMPLE [address] [place] [address] Referral ID Status Reason Start Date Expiration Date Visits Requ ested Visits Authorized [id number] Closed 03/30/2021 01/11/2022 26 26 Encounter Details Date Type Department Care Team Description 04/20/2021 Hospital Encounter Department of Radiation Jessica Beavers, Oncology in [place] [address] [place] [phone] Social History Tobacco Use Types Packs/Day Years [...]
--- OUTSIDE RECORDS SUMMARY | 2022-02-05 13:25 | XMS_ITS | Encounter Summary ---
:1940 Author Organization [facility] Address [address] [place] [address] Care Team Providers Name Role Phone Unavailable Primary Care Provider Unavailable Reason for Referral Outpatient (Routine) - Authorized Specialty Diagnoses / Procedures Referred By Contact Refer red To Contact Radiation Oncology Diagnoses Primary Malignant Neoplasm Of Prostate (HCC) Zahraa Duong P.A.-C., [facility] Angeles Avalos M.S. [address] [place] [phone] Referral ID Status Reason Start Date Expiration Date Visits V isits Requested Authorized [id number] Authorized 11/09/2021 11/09/2022 1 1 Encounter Details Date Type Department Care Team Description 11/09/2021 Orders Only Department of Radiation Marya Rivero Pri mary Malignant Oncology in [facility] Neoplasm Of Prostate [address] (HCC) (Primary Dx) [address]21 [place] [phone] [phone] Social History Tobacco Use Types Packs/Day Years [...]
--- OUTSIDE RECORDS SUMMARY | 2022-02-05 13:25 | XMS_ITS | Encounter Summary ---
:1940 Author Organization [facility] Address [address] [place] [address] Care Team Providers Name Role Phone Unavailable Primary Care Provider Unavailable Encounter Details Date Type Department Care Team Description 06/14/2021 Clinical Communication Department of Lesly Paul Radiation Oncology in [address] [place] [address] 1821 [place] [phone] Social History Tobacco Use Types Packs/Day Years Used Date Smoking Tobacco: Never Assessed Sex Assigned at Date Recorded Not on file documented as of this encounter Plan of Treatment Not on filedocumented as of this encounter Visit Diagnoses Not on filedocumented in this encounter
--- OUTSIDE RECORDS SUMMARY | 2022-02-05 13:25 | XMS_ITS | Encounter Summary ---
:1940 Author Organization [facility] Address [address] [place] [address] Care Team Providers Name Role Phone Unavailable Primary Care Provider Unavailable Reason for Visit Radiation Therapy (Routine) - Closed Specialty Diagnoses / Procedures Referred By Contact Refer red To Contact Diagnoses Primary Malignant Neoplasm Of Prostate (HCC) Enoch Beavers M.D. [facility] Procedures Prior Auth Rad Tx [place] IMRT SIMPLE [address] [place] [address] Referral ID Status Reason Start Date Expiration Date Visits Requ ested Visits Authorized [id number] Closed 03/30/2021 01/11/2022 26 26 Encounter Details Date Type Department Care Team Description 04/18/2021 Hospital Encounter Department of Radiation Jessica Beavers, Oncology in [place] [address] [place] [phone] Social History Tobacco Use Types Packs/Day Years [...]
--- OUTSIDE RECORDS SUMMARY | 2022-02-05 13:25 | XMS_ITS | Encounter Summary ---
:1940 Author Organization [facility] Address [address] [place] [address] Care Team Providers Name Role Phone Unavailable Primary Care Provider Unavailable Reason for Visit Radiation Therapy (Routine) - Closed Specialty Diagnoses / Procedures Referred By Contact Refer red To Contact Diagnoses Primary Malignant Neoplasm Of Prostate (HCC) Enoch Beavers M.D. [facility] Procedures Prior Auth Rad Tx [place] IMRT SIMPLE [address] [place] [address] Referral ID Status Reason Start Date Expiration Date Visits Requ ested Visits Authorized [id number] Closed 03/30/2021 01/11/2022 26 26 Encounter Details Date Type Department Care Team Description 04/17/2021 Hospital Encounter Department of Radiation Jessica Beavers, Oncology in [place] [address] [facility] 1821 [place] [phone] Social History Tobacco Use Types Packs/Day Years [...]
--- OUTSIDE RECORDS SUMMARY | 2022-02-05 13:25 | XMS_ITS | Encounter Summary ---
:1940 Author Organization [facility] Address [address] [place] [address] Care Team Providers Name Role Phone Unavailable Primary Care Provider Unavailable Reason for Referral Radiation Therapy (Routine) - Closed Specialty Diagnoses / Procedures Referred By Contact Refer red To Contact Diagnoses Primary Malignant Neoplasm Of Prostate (HCC) Enoch Beavers M.D. [facility] Procedures Initial Rad Onc Treatment Planning CT Simulation [address] [place] [address] Referral ID Status Reason Start Date Expiration Date Visits Requ ested Visits Authorized [id number] Closed 01/11/2021 01/11/2022 1 1 ALS REFEREE Reason for Visit Radiation Therapy (Routine) - Closed Specialty Diagnoses / Procedures Referred By Contact Refer red To Contact Diagnoses Primary Malignant Neoplasm Of Prostate (HCC) Enoch Beavers M.D. [facility] [place] [facility] Procedures Initial Rad Onc Treatment Planning CT Simulation [address] [place] [address] Referral ID Status Reason Start Date Expiration Date Visits Requ ested Visits Authorized [id number] Closed 01/11/2021 01/11/2022 1 1 Encounter Details Date Type Department Care Team Description 03/27/2021 Hospital Encounter Department of Enoch Beavers Malignant Radiation Oncology [place] Neoplasm Of Prostate in [place], [address] [facility] (HCC) [place], [place] 1821 [facility] [address] [place], [place] [phone] (Work) [phone] Social History Tobacco Use Types Packs/Day Years [...] planning. CT images were transferred to the [employer] treatment planning system, after a reference isocenter was determined and marked. Segmentation and treatment planning will take place priorto treatment delivery. Patient set up and imaging was appropriate and completed without incident. Economic Developer use: No ALS REFEREE documented in this encounter Plan of Treatment Not on filedocumented as of this encounter Procedures Procedure Name Priority Date/Time Associated Comments Diagnosis INITIAL RAD ONC Routine 03/27/2021 3:09 PM Primary Malignant R esults for this TREATMENT PLANNING APPEALS REFEREE Neoplasm Of procedure are in CT SIMULATION Prostate (HCC) the results section. documented in this encounter Results Initial Rad Onc Treatment Planning CT Simulation (03/27/2021 3:09 PM APPEALS REFEREE) Specimen (Source) Anatomical Location Collection Method / Collectio n Time Received Time / Laterality Volume Narrative [facility] - 03/27/2021 3:09 PM APPEALS REFEREE Ruthie Colon R, RTT ? 03/27/2021 ??3:10 PM Initial Rad Onc Treatment Planning CT Si mulation Date/Time: 03/27/2021 3:09 PM Performed by: Enoch Beavers M.D. Authorized by: Enoch Beavers M.D. Enoch Beavers M.D. RADIATION ONCOLOGY ORDERABLE S Performing Organization Address City/State/ZIP Code Phon e Number [facility] na documented in this encounter Visit Diagnoses Diagnosis Primary Malignant Neoplasm Of Prostate ( HCC) documented in this encounter
--- OUTSIDE RECORDS SUMMARY | 2022-02-05 13:25 | XMS_ITS | Encounter Summary ---
:1940 Author Organization [facility] Address [address] [place] [address] Care Team Providers Name Role Phone Unavailable Primary Care Provider Unavailable Reason for Referral Outpatient (Routine) - Closed Specialty Diagnoses / Procedures Referred By Contact Refer red To Contact Radiation Oncology Enoch Beavers M .D. [facility] [address] [place] [address] Referral ID Status Reason Start Date Expiration Date Visits Requ ested Visits Authorized [id number] Closed 04/25/2021 04/25/2022 1 1 ESSIONAL SKATER Radiation Therapy (Routine) - Closed Specialty Diagnoses / Procedures Referred By Contact Refer red To Contact Diagnoses Primary Malignant Neoplasm Of Prostate (HCC) Enoch Beavers M.D. [facility] Procedures Management Visit [address] [place] [address] Referral ID Status Reason Start Date Expiration Date Visits Requ ested Visits Authorized [id number] Closed 01/11/2021 01/11/2022 4 4 ESSIONAL SKATER Reason for Visit Radiation Therapy (Routine) - Closed Specialty Diagnoses / Procedures Referred By Contact Refer red To Contact Diagnoses Primary Malignant Neoplasm Of Prostate (HCC) Enoch Beavers M.D. [facility] Procedures Management Visit [address] [place] [address] Referral ID Status Reason Start Date Expiration Date Visits Requ ested Visits Authorized [id number] Closed 01/11/2021 01/11/2022 4 4 Encounter Details Date Type Department Care Team Description 04/25/2021 Hospital Encounter Department of Enoch Beavers Malignant Radiation Oncology [place] Neoplasm Of Prostate in [place], [facility] [address] (HCC) [place], [place] 1821 [facility] [address] [place], [place] [phone] [address] (Work) [phone] Social History Tobacco Use Types Packs/Day Years Used Date Smoking Tobacco: Never Assessed Sex Assigned at Date Recorded Not on file documented as of this encounter Last Filed Vital Signs Vital Sign Reading Time Taken Comments Blood Pressure - - Pulse - - Temperature 36.6 ??C (97.8 ??F) 04/25/2021 3:29 PM PROFESSIONAL SKATER Respiratory Rate - - Oxygen Saturation - - Inhaled Oxygen Concentration - - Weight 107 kg (236 lb 15.9 oz) 04/25/2021 3:29 PM PROFESSIONAL SKATER Height - - Body Mass Index 34.01 [...] testosterone 3 days ahead of time at [facility]. Dr. Upton will see patient in last management visit next week. He will contact us with any questions or concerns. We will continue with radiation treatment as planned. Signed by: Esther Johnston R.N. 04/25/2021 3:51 PM PROFESSIONAL SKATER I saw and evaluated the patient and [...] by: Enoch Beavers M.D. 04/25/2021 5:59 PM PROFESSIONAL SKATER [facility] Radiation Therapy Center [address] [place] [address] ESSIONAL SKATER documented in this encounter Plan of Treatment [...]
--- OUTSIDE RECORDS SUMMARY | 2022-02-05 13:25 | XMS_ITS ---
:1940 Author Organization [facility] Address [address] [place] [address] Care Team Providers Name Role Phone Unavailable [...] Elapsed Days Session Dose Total Dos e [id number] 05/03/2021 28 300 cGy 6,000 cGy
--- OUTSIDE RECORDS SUMMARY | 2022-02-05 13:25 | XMS_ITS | Encounter Summary ---
:1940 Author Organization [facility] Address [address] [place] [address] Care Team Providers Name Role Phone Unavailable Primary Care Provider Unavailable Reason for Visit Radiation Therapy (Routine) - Closed Specialty Diagnoses / Procedures Referred By Contact Refer red To Contact Diagnoses Primary Malignant Neoplasm Of Prostate (HCC) Enoch Beavers M.D. [facility] Procedures Prior Auth Rad Tx [place] IMRT SIMPLE [address] [place] [address] Referral ID Status Reason Start Date Expiration Date Visits Requ ested Visits Authorized [id number] Closed 03/30/2021 01/11/2022 26 26 Encounter Details Date Type Department Care Team Description 04/13/2021 Hospital Encounter Department of Radiation Jessica Beavers, [place]cology in [place] [address] [place] [phone] Social History Tobacco Use Types Packs/Day Years [...]
--- OUTSIDE RECORDS SUMMARY | 2022-02-05 13:25 | XMS_ITS | Encounter Summary ---
:1940 Author Organization [facility] Address [address] [place] [address] Care Team Providers Name Role Phone Unavailable Primary Care Provider Unavailable Reason for Visit Radiation Therapy (Routine) - Closed Specialty Diagnoses / Procedures Referred By Contact Refer red To Contact Diagnoses Primary Malignant Neoplasm Of Prostate (HCC) Enoch Beavers M.D. [facility] Procedures Prior Auth Rad Tx [place] IMRT SIMPLE [address] [place] [address] Referral ID Status Reason Start Date Expiration Date Visits Requ ested Visits Authorized [id number] Closed 03/30/2021 01/11/2022 26 26 Encounter Details Date Type Department Care Team Description 05/01/2021 Hospital Encounter Department of Radiation Jessica Beavers, [place]cology in [place] [address] [place] [phone] Social History Tobacco Use Types Packs/Day Years [...]
--- OUTSIDE RECORDS SUMMARY | 2022-02-05 13:25 | XMS_ITS | Encounter Summary ---
:1940 Author Organization [facility] Address [address] [place] [address] Care Team Providers Name Role Phone Unavailable Primary Care Provider Unavailable Reason for Referral Outpatient (Routine) - Closed Specialty Diagnoses / Procedures Referred By Contact Refer red To Contact Radiation Oncology Enoch Beavers M .D. [address] [address] Referral ID Status Reason Start Date Expiration Date Visits Requ ested Visits Authorized [id number] Closed 04/25/2021 04/25/2022 1 1 Reason for Visit Outpatient (Routine) - Closed Specialty Diagnoses / Procedures Referred By Contact Refer red To Contact Radiation Oncology Enoch Beavers M .D. [address] [address] Referral ID Status Reason Start Date Expiration Date Visits Requ ested Visits Authorized [id number] Closed 04/25/2021 04/25/2022 1 1 Encounter Details Date Type Department Care Team Description 08/03/2021 - Hospital Encounter Department of Ruthann, Primary Malignant 08/04/2021 Radiation Oncology Enoch Hamilton M.D. Neoplasm Of Prostate in [address] (HCC) (Primary Dx) [place], [place] [address] [facility] [address] [place], [place] [phone] (Work) [phone] Social History Tobacco Use Types Packs/Day Years [...] Prostate (HCC) SUPERVISED BY: Enoch Beavers M.D. ([id number]) HISTORY OF PRESENT ILLNESS Mr. Rudy Tejada [...] left mid of the prostate demonstrated adenocarcinoma, [place] 4+3=7, involving 25% of the length of [...] lateral mid of the prostate demonstrated adenocarcinoma, [place] 3+4=7, involving 40% of the length of [...] interested in consultation with Radiation Oncology in [place]. ??Dr. Espino discussed that he would typically [...] PSA lab draw to be done at [facility] in 3 months. We will contact the [...] Duong P.A.-C., M.S. 08/04/2021 11:[place] [address] Associated attestation - Enoch Beavers M.D. - [...] Beavers M.D. 08/04/21 11:49 AM CDT [facility] Radiation Therapy [facility] documented in this encounter Plan of Treatment Scheduled Referrals Name Type Priority Associated Order Schedule Diagnoses Radiation Oncology Outpatient Referral Routine On ce for 1 office visit Occurrences sta rting (clinic) 08/03/2021 unti l 08/03/2021 documented as of this encounter Visit Diagnoses Diagnosis Primary Malignant Neoplasm Of Prostate ( HCC) - Primary documented in this encounter
--- OUTSIDE RECORDS SUMMARY | 2022-02-05 13:25 | XMS_ITS | Encounter Summary ---
:1940 Author Organization [facility] Address [address] [place] [address] Care Team Providers Name Role Phone Unavailable Primary Care Provider Unavailable Reason for Visit Radiation Therapy (Routine) - Closed Specialty Diagnoses / Procedures Referred By Contact Refer red To Contact Diagnoses Primary Malignant Neoplasm Of Prostate (HCC) Enoch Beavers M.D. [facility] Procedures Prior Auth Rad Tx CT IMRT SIMPLE [address] [place] [address] Referral ID Status Reason Start Date Expiration Date Visits Requ ested Visits Authorized [id number] Closed 03/30/2021 01/11/2022 26 26 Encounter Details Date Type Department Care Team Description 04/14/2021 Hospital Encounter Department of Radiation Jessica Beavers, Oncology in [place] [address] [place] [phone] Social History Tobacco Use Types Packs/Day Years [...]
--- OUTSIDE RECORDS SUMMARY | 2022-02-05 13:25 | XMS_ITS | Encounter Summary ---
:1940 Author Organization [facility] Address [address] [place] [address] Care Team Providers Name Role Phone Unavailable Primary Care Provider Unavailable Reason for Visit Radiation Therapy (Routine) - Closed Specialty Diagnoses / Procedures Referred By Contact Refer red To Contact Diagnoses Primary Malignant Neoplasm Of Prostate (HCC) Enoch Beavers M.D. [facility] Procedures Prior Auth Rad Tx [place] IMRT SIMPLE [address] [place] [address] Referral ID Status Reason Start Date Expiration Date Visits Requ ested Visits Authorized [id number] Closed 03/30/2021 01/11/2022 26 26 Encounter Details Date Type Department Care Team Description 04/12/2021 Hospital Encounter Department of Radiation Jessica Beavers, Oncology in [place] [address] [place] [phone] Social History Tobacco Use Types Packs/Day Years [...]
--- OUTSIDE RECORDS SUMMARY | 2022-02-05 13:25 | XMS_ITS | Encounter Summary ---
:1940 Author Organization [facility] Address [address] [place] [address] Care Team Providers Name Role Phone Unavailable Primary Care Provider Unavailable Encounter Details Date Type Department Care Team Description 05/03/2021 Documentation Department of Radiation Enoch Beavers, Oncology in [place] [address] [facility] [address] [place] [phone] [phone] (Wo rk) Social History Tobacco Use Types Packs/Day Years Used Date Smoking Tobacco: Never Assessed Sex Assigned at Date Recorded Not on file documented as of this encounter Miscellaneous Notes Radiation Completion Notes - Jodi Dunn, RGuyN. - 05/03/2021 11:59 PM FINGERNAIL SCULPTURER DIAGNOSIS: Primary Malignant Neoplasm of Prostate Attending [...] by: Jodi Dunn R.N., 05/19/2021 3:40 PM FINGERNAIL SCULPTURER ERNAIL SCULPTURER documented in this encounter Plan of Treatment Not on filedocumented as of this encounter Visit Diagnoses Diagnosis Primary Malignant Neoplasm Of Prostate ( HCC) - Primary documented in this encounter
--- OUTSIDE RECORDS SUMMARY | 2022-02-05 13:25 | XMS_ITS | Encounter Summary ---
:1940 Author Organization [facility] Address [address] [place] [address] Care Team Providers Name Role Phone Unavailable Primary Care Provider Unavailable Reason for Visit Radiation Therapy (Routine) - Closed Specialty Diagnoses / Procedures Referred By Contact Refer red To Contact Diagnoses Primary Malignant Neoplasm Of Prostate (HCC) Enoch Beavers M.D. [facility] Procedures Prior Auth Rad Tx [place] IMRT SIMPLE [address] [place] [address] Referral ID Status Reason Start Date Expiration Date Visits Requ ested Visits Authorized [id number] Closed 03/30/2021 01/11/2022 26 26 Encounter Details Date Type Department Care Team Description 04/19/2021 Hospital Encounter Department of Radiation Jessica Beavers, Oncology in [place] [address] [place] [phone] Social History Tobacco Use Types Packs/Day Years [...]
--- OUTSIDE RECORDS SUMMARY | 2022-02-05 13:25 | XMS_ITS | Clinical Summary ---
:1940 Author Organization [facility] Address [address] [place] [address] Care Team Providers Name Role Phone Unavailable Primary Care Provider Unavailable Source Comments Patient records contain information from all sites at [facility]. For routine questions regarding patient records, call [phone] during business hours, M-F 8:00 AM - 5:00 PM Central Time. Record requests for emergency care only can be directed to [phone] at any time.[facility] Allergies Active Allergy Reactions Severity Noted [...] (Annual) 05/06/2021 COVID-19 Vaccine (4 - Booster) 05/26/2021 03/31/2021, 07/09, 06/18/2020 Influenza Vaccine (#1) 2022 Pneumococcal vaccine (65+ years) Completed 05/11/2020, 04/2007 Insurance Payer Benefit Plan Subscriber ID Effective Phone Address Typ e / Group Dates [employer] MEDICARE [id number] 2021-Lois [phone] [address] [address] PPO COMPLETE nt [address] [place] [address]
--- OUTSIDE RECORDS SUMMARY | 2022-02-05 13:25 | XMS_ITS | Encounter Summary ---
:1940 Author Organization [facility] Address [address] [place] [address] Care Team Providers Name Role Phone Unavailable Primary Care Provider Unavailable Reason for Referral Radiation Therapy (Routine) - Closed Specialty Diagnoses / Procedures Referred By Contact Refer red To Contact Diagnoses Primary Malignant Neoplasm Of Prostate (HCC) Enoch Beavers M.D. [facility] Procedures Management Visit [address] [place] [phone] Referral ID Status Reason Start Date Expiration Date Visits Requ ested Visits Authorized [id number] Closed 01/11/2021 01/11/2022 4 4 DIRECTOR Reason for Visit Radiation Therapy (Routine) - Closed Specialty Diagnoses / Procedures Referred By Contact Refer red To Contact Diagnoses Primary Malignant Neoplasm Of Prostate (HCC) Enoch Beavers M.D. [facility] Procedures Management Visit [address] [place] [phone] Referral ID Status Reason Start Date Expiration Date Visits Requ ested Visits Authorized [id number] Closed 01/11/2021 01/11/2022 4 4 Encounter Details Date Type Department Care Team Description 04/11/2021 Hospital Encounter Department of Enoch Beavers Malignant Radiation Oncology [place] Neoplasm Of Prostate in [place], [address] [facility] (HCC) [place], [place] [address] [facility] [address] [place], [place] [phone] (Work) [phone] Social History Tobacco Use Types Packs/Day Years Used Date Smoking Tobacco: Never Assessed Sex Assigned at Date Recorded Not on file documented as of this encounter Last Filed Vital Signs Vital Sign Reading Time Taken Comments Blood Pressure - - Pulse - - Temperature 36.6 ??C (97.8 ??F) 04/11/2021 9:10 AM DESK DIRECTOR Respiratory Rate - - Oxygen Saturation - - Inhaled Oxygen Concentration - - Weight 108 kg (237 lb 7 oz) 04/11/2021 9:10 AM DESK DIRECTOR Height - - Body Mass Index 34.07 [...] Prostate (HCC) SUPERVISED BY: Enoch Beavers M.D. ([id number]) HISTORY OF PRESENT ILLNESS Mr. Rudy Tejada [...] by: Esther Johnston R.N. 04/11/2021 9:14 AM DESK DIRECTOR I saw and evaluated the patient and participated in the kelley portions of the service. I reviewed the documentation of Esther Johnston R.N. and agree with the findings and plan. The patient appears well onexam. He will continue with treatment as planned. Signed by: Enoch Beavers M.D. 04/11/2021 2:02 PM DESK DIRECTOR [facility] Radiation Therapy Center [address] [place] [address] DIRECTOR documented in this encounter Plan of Treatment [...]
--- OUTSIDE RECORDS SUMMARY | 2022-02-05 13:25 | XMS_ITS | Encounter Summary ---
:1940 Author Organization [facility] Address [address] [place] [address] Care Team Providers Name Role Phone Unavailable Primary Care Provider Unavailable Reason for Visit Radiation Therapy (Routine) - Closed Specialty Diagnoses / Procedures Referred By Contact Refer red To Contact Diagnoses Primary Malignant Neoplasm Of Prostate (HCC) Enoch Beavers M.D. [facility] Procedures Prior Auth Rad Tx [place] IMRT SIMPLE [address] [place] [address] Referral ID Status Reason Start Date Expiration Date Visits Requ ested Visits Authorized [id number] Closed 03/30/2021 01/11/2022 26 26 Encounter Details Date Type Department Care Team Description 05/02/2021 Hospital Encounter Department of Radiation Jessica Beavers, Oncology in [place] [address] [place] [phone] Social History Tobacco Use Types Packs/Day Years [...]
--- OUTSIDE RECORDS SUMMARY | 2022-02-05 13:25 | XMS_ITS | Encounter Summary ---
:1940 Author Organization [facility] Address [address] [place] [address] Care Team Providers Name Role Phone Unavailable Primary Care Provider Unavailable Reason for Visit Radiation Therapy (Routine) - Closed Specialty Diagnoses / Procedures Referred By Contact Refer red To Contact Diagnoses Primary Malignant Neoplasm Of Prostate (HCC) Enoch Beavers M.D. [facility] Procedures Prior Auth Rad Tx [place] IMRT SIMPLE [address] [place] [address] Referral ID Status Reason Start Date Expiration Date Visits Requ ested Visits Authorized [id number] Closed 03/30/2021 01/11/2022 26 26 Encounter Details Date Type Department Care Team Description 04/07/2021 Hospital Encounter Department of Radiation Jessica Beavers, Oncology in [place] [address] [place] [phone] Social History Tobacco Use Types Packs/Day Years [...]
--- OUTSIDE RECORDS SUMMARY | 2022-02-05 13:25 | XMS_ITS | Encounter Summary ---
:1940 Author Organization [facility] Address [address] [place] [address] Care Team Providers Name Role Phone Unavailable Primary Care Provider Unavailable Encounter Details Date Type Department Care Team Description 09/04/2021 Clinical Communication Department of Petra King Radiation Oncology in [place] [address] [place] [address] Social History Tobacco Use Types Packs/Day Years Used Date Smoking Tobacco: Never Assessed Sex Assigned at Date Recorded Not on file documented as of this encounter Plan of Treatment Not on filedocumented as of this encounter Visit Diagnoses Not on filedocumented in this encounter
--- OUTSIDE RECORDS SUMMARY | 2022-02-05 13:25 | XMS_ITS | Encounter Summary ---
:1940 Author Organization [facility] Address [address] [place] [address] Care Team Providers Name Role Phone Unavailable Primary Care Provider Unavailable Reason for Visit Radiation Therapy (Routine) - Closed Specialty Diagnoses / Procedures Referred By Contact Refer red To Contact Diagnoses Primary Malignant Neoplasm Of Prostate (HCC) Enoch Beavers M.D. [facility] Procedures Prior Auth Rad Tx [place] IMRT SIMPLE [address] [place] [address] Referral ID Status Reason Start Date Expiration Date Visits Requ ested Visits Authorized [id number] Closed 03/30/2021 01/11/2022 26 26 Encounter Details Date Type Department Care Team Description 04/26/2021 Hospital Encounter Department of Radiation Jessica Beavers, Oncology in [place] [address] [place] [phone] Social History Tobacco Use Types Packs/Day Years [...]
--- OUTSIDE RECORDS SUMMARY | 2022-02-05 13:25 | XMS_ITS | Encounter Summary ---
:1940 Author Organization [facility] Address [address] [place] [address] Care Team Providers Name Role Phone Unavailable Primary Care Provider Unavailable Reason for Visit Radiation Therapy (Routine) - Closed Specialty Diagnoses / Procedures Referred By Contact Refer red To Contact Diagnoses Primary Malignant Neoplasm Of Prostate (HCC) Enoch Beavers M.D. [facility] Procedures Prior Auth Rad Tx [place] IMRT SIMPLE [address] [place] [address] Referral ID Status Reason Start Date Expiration Date Visits Requ ested Visits Authorized [id number] Closed 03/30/2021 01/11/2022 26 26 Encounter Details Date Type Department Care Team Description 04/25/2021 Hospital Encounter Department of Radiation Jessica Beavers, Oncology in [place] [address] [place] [phone] Social History Tobacco Use Types Packs/Day Years [...]
--- OUTSIDE RECORDS SUMMARY | 2022-02-05 13:25 | XMS_ITS | Encounter Summary ---
:1940 Author Organization [facility] Address [address] [place] [address] Care Team Providers Name Role Phone Unavailable Primary Care Provider Unavailable Reason for Referral Radiation Therapy (Routine) - Closed Specialty Diagnoses / Procedures Referred By Contact Refer red To Contact Diagnoses Primary Malignant Neoplasm Of Prostate (HCC) Enoch Beavers M.D. [facility] Procedures Management Visit [address] [place] [phone] Referral ID Status Reason Start Date Expiration Date Visits Requ ested Visits Authorized [id number] Closed 01/11/2021 01/11/2022 4 4 NESS CONSULTANT Reason for Visit Radiation Therapy (Routine) - Closed Specialty Diagnoses / Procedures Referred By Contact Refer red To Contact Diagnoses Primary Malignant Neoplasm Of Prostate (HCC) Enoch Beavers M.D. [facility] Procedures Management Visit [address] [place] [phone] Referral ID Status Reason Start Date Expiration Date Visits Requ ested Visits Authorized [id number] Closed 01/11/2021 01/11/2022 4 4 Encounter Details Date Type Department Care Team Description 04/18/2021 Hospital Encounter Department of Jennifer Upton Malignant Radiation Oncology [place] Neoplasm Of Prostate in [place], [address] [place] [address] (HCC) [place], [place] [address] [facility] [address] [place], [place] [phone] (Work) [phone] Social History Tobacco Use Types Packs/Day Years Used Date Smoking Tobacco: Never Assessed Sex Assigned at Date Recorded Not on file documented as of this encounter Last Filed Vital Signs Vital Sign Reading Time Taken Comments Blood Pressure - - Pulse - - Temperature 36.2 ??C (97.1 ??F) 04/18/2021 3:23 PM BUSINESS CONSULTANT Respiratory Rate - - Oxygen Saturation - - Inhaled Oxygen Concentration - - Weight 107 kg (235 lb 7.2 oz) 04/18/2021 3:23 PM BUSINESS CONSULTANT Height - - Body Mass Index 33.78 [...] by: Esther Johnston R.N. 04/18/2021 3:32 PM BUSINESS CONSULTANT NESS CONSULTANT documented in this encounter Plan of Treatment [...]
--- OUTSIDE RECORDS SUMMARY | 2022-02-05 13:25 | XMS_ITS | Encounter Summary ---
:1940 Author Organization [facility] Address [address] [place] [address] Care Team Providers Name Role Phone Unavailable Primary Care Provider Unavailable Reason for Visit Reason Comments Results Encounter Details Date Type Department Care Team Description 11/09/2021 Clinical Communication Department of Radiation Pedro Rivero, Results Oncology in [facility] [address] [facility] [address] [place] [phone] Social History Tobacco Use Types Packs/Day Years Used Date Smoking Tobacco: Never Assessed Sex Assigned at Date Recorded Not on file documented as of this encounter Miscellaneous Notes Telephone Encounter - Marya Rivero R.N. - 11/09/2021 2:29 PM CDT You recently had [facility] [place] [place] Please note the results below: PSA 0.82 ng/mL This represents a low, stable PSA level. At present, no further evaluation is needed, however, it isbest to continue monitoring your PSA level routinely. The plan is to next check your PSA level at [facility] in [place], [place] prior to your next visit with [...]
--- OUTSIDE RECORDS SUMMARY | 2022-02-05 13:25 | XMS_ITS | Encounter Summary ---
:1940 Author Organization [facility] Address [address] [place] [address] Care Team Providers Name Role Phone Unavailable Primary Care Provider Unavailable Reason for Visit Outpatient (Routine) - Closed Specialty Diagnoses / Procedures Referred By Contact Refer red To Contact Radiation Oncology Enoch Beavers M .D. [address] [address] Referral ID Status Reason Start Date Expiration Date Visits Requ ested Visits Authorized [id number] Closed 01/11/2021 01/11/2022 1 1 Encounter Details Date Type Department Care Team Description 03/17/2021 - Hospital Encounter Department of Ruthann, Primary Malignant 04/16/2021 Radiation Oncology Enoch Hamilton M.D. Neoplasm Of Prostate in [address] (HCC) (Primary Dx) [place], [place] [address] [facility] [address] [place], [place] [phone] (Work) [phone] Social History Tobacco Use Types Packs/Day Years [...]
--- OUTSIDE RECORDS SUMMARY | 2022-02-05 13:26 | XMS_ITS | Encounter Summary ---
:1940 Author Organization [facility] Address [address] [place] [address] Care Team Providers Name Role Phone Unavailable Primary Care Provider Unavailable Reason for Referral Outpatient (Routine) - Closed Specialty Diagnoses / Procedures Referred By Contact Refer red To Contact Radiation Oncology Enoch Beavers M .D. [place] [address] [place] [address] Referral ID Status Reason Start Date Expiration Date Visits Requ ested Visits Authorized [id number] Closed 01/11/2021 01/11/2022 1 1 Scheduling Instructions Prior to simulation for consent Radiation Therapy (Routine) - Closed Specialty Diagnoses / Procedures Referred By Contact Refer red To Contact Diagnoses Primary Malignant Neoplasm Of Prostate (HCC) Enoch Beavers M.D. [facility] Procedures Management Visit [address] [place] [address] Referral ID Status Reason Start Date Expiration Date Visits Requ ested Visits Authorized [id number] Closed 01/11/2021 01/11/2022 4 4 Radiation Therapy (Routine) - Closed Specialty Diagnoses / Procedures Referred By Contact Refer red To Contact Diagnoses Primary Malignant Neoplasm Of Prostate (HCC) Enoch Beavers M.D. [facility] Procedures Prior Auth Rad Tx [place] IMRT SIMPLE [address] [place] [address] Referral ID Status Reason Start Date Expiration Date Visits Requ ested Visits Authorized [id number] Closed 03/30/2021 01/11/2022 26 26 Radiation Therapy (Routine) - Closed Specialty Diagnoses / Procedures Referred By Contact Refer red To Contact Diagnoses Primary Malignant Neoplasm Of Prostate (HCC) Enoch Beavers M.D. [facility] Procedures Initial Rad Onc Treatment Planning CT Simulation [address] [place] [address] Referral ID Status Reason Start Date Expiration Date Visits Requ ested Visits Authorized [id number] Closed 01/11/2021 01/11/2022 1 1 Reason for Visit Appointment Request (Routine) - Closed Specialty Diagnoses / Procedures Referred By Contact Refer red To Contact Radiation Oncology Diagnoses Primary Malignant Neoplasm Of Prostate (HCC) Referral ID Status Reason Start Date Expiration Date Visits Requ ested Visits Authorized [id number] Closed 12/28/2020 12/28/2021 1 1 Encounter Details Date Type Department Care Team Description 01/11/2021 - Hospital Encounter Department of Ruthann, Primary Malignant 01/12/2021 Radiation Oncology Enoch Hamilton M.D. Neoplasm Of Prostate in [place], [address] [facility] (HCC) (Primary Dx) [place], [place] [address] [facility] [address] [place], [place] [phone] [address] (Work) [phone] Social History Tobacco Use Types Packs/Day Years [...] lateral base of the prostate demonstrated adenocarcinoma, Cromwell 3+4=7, involving 40% of the length of [...] left mid of the prostate demonstrated adenocarcinoma, Cromwell 4+3=7, involving 25% of the length of the core, perineural invasion not seen. Pathology of the left apex of the prostate demonstrated adenocarcinoma, Cromwell 3+3=6, involving 10% of the length of [...] interested in consultation with Radiation Oncology in [place]. Dr. Espino discussed that he would typically [...] shoulder joint SOCIAL HISTORY He lives in [place], [place]. He is to his , Kim. He has 3 children. He is a former smoker with a 30 pack-year history, quit in 1982. He has a history of alcohol abuse, quit in 1981. 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 FAMILY HISTORY Negative for prostate cancer. [...] surgery, radiotherapy, or observation (Bryanna et al, [facility], 2016) that showed that surgery and [...] Radiation in Prostate Cancer?? trial (IRB# [id number]). I did not discuss this with him [...] have a 4 month Eligard injection at [facility] in [place]. A PSA and testosterone level will be [...] M.D. 01/11/2021 9:53 PM CDT Radiation Oncology [facility] [address] [place] [address] documented in this encounter Plan of Treatment Scheduled Orders Name Type Priority Associated Order Schedule Diagnoses Prior Auth Rad Tx Radiation Oncology Routine Primary Malignant Ordered: 01/11/2021 Neoplasm Of Prostate (HCC) Management Visit Radiation Oncology Routine Primary Malignant 10 Occurrences Neoplasm Of starting 2020 Prostate (HCC) until 022 Scheduled Referrals Name Type Priority Associated Diagnoses Order S [facility] Radiation Oncology Outpatient Referral Routine Ex pected: office visit 03/13/2021 (clinic) (Approximate), Expires: 01/12/2024 documented as of this encounter Results Initial Rad Onc Treatment Planning CT Simulation (03/27/2021 3:09 PM AUTO GLASS TECHNICIAN) Specimen (Source) Anatomical Location Collection Method / Collectio n Time Received Time / Laterality Volume Narrative [facility] - 03/27/2021 3:09 PM AUTO GLASS TECHNICIAN Ruthie Colon, RTT ? 03/27/2021 ??3:10 PM Initial Rad Onc Treatment Planning CT Si mulation Date/Time: 03/27/2021 3:09 PM Performed by: Enoch Beavers M.D. Authorized by: Enoch Beavers M.D. Enoch Beavers M.D. RADIATION ONCOLOGY ORDERABLE S Performing Organization Address City/State/[facility] Code Phon e Number [facility] documented in this encounter Visit Diagnoses Diagnosis Primary Malignant Neoplasm Of Prostate ( HCC) - Primary Primary Malignant Neoplasm Of Prostate ( HCC) documented in this encounter
--- OUTSIDE RECORDS SUMMARY | 2022-02-05 13:26 | XMS_ITS | Encounter Summary ---
:1940 Author Organization [facility] Address [address] [place] [address] Care Team Providers Name Role Phone Unavailable Primary Care Provider Unavailable Encounter Details Date Type Department Care Team Description 01/13/2021 Orders Only RST PCP TH Gogo Alarcon M.D. [address] [place], [place] [phone] (Wo rk) Social History Tobacco Use Types Packs/Day Years Used Date Smoking Tobacco: Never Assessed Sex Assigned at Date Recorded Not on file documented as of this encounter Plan of Treatment Not on filedocumented as of this encounter Visit Diagnoses Not on filedocumented in this encounter
--- OUTSIDE RECORDS SUMMARY | 2022-02-05 13:26 | XMS_ITS | Encounter Summary ---
:1940 Author Organization [facility] Address [address] [place] [address] Care Team Providers Name Role Phone Unavailable Primary Care Provider Unavailable Reason for Visit Reason Comments Med Refill Encounter Details Date Type Department Care Team Description 01/24/2021 Refill Department of Radiation Enoch Beavers M.D. Med Refill Oncology in [place], [facility] [address] [place] [address] [address] [facility] [place] [address] [phone] Social History Tobacco Use Types Packs/Day Years Used Date Smoking Tobacco: Never Assessed Sex Assigned at Date Recorded Not on file documented as of this encounter Plan of Treatment Not on filedocumented as of this encounter Visit Diagnoses Not on filedocumented in this encounter
--- OUTSIDE RECORDS SUMMARY | 2022-02-05 13:26 | XMS_ITS ---
:1940 Author Care Team Providers Name Role Phone ADAM LAMA MD Primary Care Provider [phone] Allergies Code Code System Name Reaction Severity [...] CHRONIC 10/31/2020 NM, Bone Scan, Whole Body [facility] Radiology Department [address] [place] [address] (Work Place) 10/31/2020 CT, Abdomen + Pelvis, W/ Contrast [facility] Radiology Department [address] [place] [address] (Work Place) Results Lab Results None recorded. Past Encounters 12/26/2020 Carcinoma of Prostate Reji Espino MD: [address] [facility], [address], [place] [address], Ph. 10/31/2020 Raised Prostate Specific Antigen; Malign ant Tumor of Prostate Josiah Joshi MD: [address] [place] [address], Ph. 10/04/2020 Raised Prostate Specific Antigen Josiah Joshi MD: [address] [place] [address], Ph. Social History Tobacco Smoking Status Former [...]
--- OUTSIDE RECORDS SUMMARY | 2022-02-05 13:26 | XMS_ITS | Encounter Summary ---
:1940 Author Organization [facility] Address [address] [place] [address] Care Team Providers Name Role Phone Unavailable Primary Care Provider Unavailable Reason for Visit Reason Comments Med Refill Encounter Details Date Type Department Care Team Description 02/12/2021 Refill Department of Radiation Enoch Beavers M.D. Med Refill Oncology in [place], [facility] [address] [place] [address] [address] [facility] [place] [address] [phone] Social History Tobacco Use Types Packs/Day Years Used Date Smoking Tobacco: Never Assessed Sex Assigned at Date Recorded Not on file documented as of this encounter Plan of Treatment Not on filedocumented as of this encounter Visit Diagnoses Not on filedocumented in this encounter
[2022-02-05 22:24] LABS: Creatinine Urine 59.3 mg/dL
[2022-02-05 22:26] LABS: Microalbumin Creatinine Ratio 10 mg/g (0-30); Microalbumin Urine 1 mg/dL
[2022-02-05 22:27] LABS: Cholesterol* 133 mg/dL (90-199); HDL Cholesterol* 47 mg/dL (>=40); LDL Cholesterol Calculated 44 mg/dL (<100); Triglycerides* 212 mg/dL (40-149)
[2022-02-05 22:35] LABS: Vitamin D 25 Hydroxy* 53 ng/mL (30-80)
[2022-02-05 23:06] LABS: Vitamin B12* 308 pg/mL (243-894)
== END 2022-02-05 13:23 | disposition home or self-care (01) ==
PROVIDERS: PCP Family Medicine; Visit Provider Family Medicine
DX: Z00.00 Encounter for general adult medical examination without abnormal findings (principal); E55.9 Vitamin D deficiency, unspecified; G62.9 Polyneuropathy, unspecified; E78.5 Hyperlipidemia, unspecified; I10 Essential (primary) hypertension; R73.03 Prediabetes; K76.0 Fatty (change of) liver, not elsewhere classified
CPT/HCPCS: 80061; 82043; 82306; 82570; 82607

== ENCOUNTER 2022-03-30 12:35 | Outpatient (REF) | payer MEDICARE, SELFPAY ==
--- OUTSIDE RECORDS SUMMARY | 2022-03-30 12:37 | XMS_ITS | Clinical Summary ---
:1940 Author Organization [facility] Address [address] [place] [address] Care Team Providers Name Role Phone Unavailable Primary Care Provider Unavailable Source Comments Patient records contain information from all sites at [facility]. For routine questions regarding patient records, call [phone] during business hours, M-F 8:00 AM - 5:00 PM Central Time. Record requests for emergency care only can be directed to [phone] at any time.[facility] Allergies Active Allergy Reactions Severity Noted Date [...] Encounters Date Type Specialty Care Team Description 02/15/2022 Clinical Communication Radiation Oncology Miquel Beavers M.D. from Last 3 Months Social History Tobacco [...] 01/11/2021 3:00 PM CDT Plan of Treatment Upcoming Encounters Date Type Specialty Care Team Description 04/03/2022 Appointment Radiation Oncology Agustin Beavers M.D. [address] [place], [place] [phone] (Wo rk) Health Maintenance Due Date Last Done Comments [...] Phone Address Typ e / Group Dates [facility] MEDICARE [id number] 2021-Presellen [phone] [address] [address] PPO COMPLETE nt [address] [place] [address]
--- OUTSIDE RECORDS SUMMARY | 2022-03-30 12:37 | XMS_ITS | Encounter Summary ---
:1940 Author Organization [facility] Address [address] [place] [address] Care Team Providers Name Role Phone Unavailable Primary Care Provider Unavailable Reason for Visit Reason Comments Results Encounter Details Date Type Department Care Team Description 11/09/2021 Clinical Communication Department of Radiation Pedro Rivero, Results Oncology in [facility] [address] [facility] [address] [place] [phone] Social History Tobacco Use Types Packs/Day Years Used Date Smoking Tobacco: Never Assessed Sex Assigned at Date Recorded Not on file documented as of this encounter Miscellaneous Notes Telephone Encounter - Marya Rivero R.N. - 11/09/2021 2:29 PM CDT You recently had a prostate-specific [facility] (PSA) [facility] [place] [place] Please note the results below: PSA 0.82 ng/mL This represents a low, stable PSA level. At present, no further evaluation is needed, however, it isbest to continue monitoring your PSA level routinely. The plan is to next check your PSA level at [facility] in [place], [place] prior to your next visit with [...] documented in this encounter Plan of Treatment Upcoming Encounters Date Type Specialty Care Team Description 04/03/2022 Appointment Radiation Oncology Agustin Beavers M.D. [address] [place] [phone] (Wo rk) documented as of this encounter Visit Diagnoses Not on filedocumented in this encounter
--- OUTSIDE RECORDS SUMMARY | 2022-03-30 12:37 | XMS_ITS | Clinical Summary ---
:1940 Author Organization [facility] [place] [address] Care Team Providers Name Role Phone Nonstaff, [...] a.) Code Status: CPR/Attempt Resuscitation Cough 05/11/2012 Encounters Date Type Specialty Care Team Description 02/15/2022 Orders Only Luis Corral MD Out side Order from Last 3 Months Family History Medical History Relation Name Comments Other Sister zhen aneurysm Relation Name Status Comments Sister Social History Tobacco Use Types Packs/Day Years Used Date Former Smoker Cigarettes 30 Quit: 05/06/18 83 Alcohol Use Standard [...] 36.7 ??C (98 ??F) 05/12/2012 8:00 AM [employer] Respiratory Rate 16 05/12/2012 8:00 AM [employer] Oxygen Saturation 94% 01/16/2021 11:21 AM CDT Inhaled Oxygen Concentration - - Weight 108.6 kg (239 lb 8 oz) 01/16/2021 11:21 AM CDT Height 177.8 cm (5' 10) 05/11/2012 2:47 PM [employer] Body Mass Index 34.36 05/11/2012 2:47 PM [employer] Plan of Treatment Health Maintenance Due Date [...] COVID-19 vaccine series (3 - Booster for 09/03/2020 021, 06/18/2020 Pfizer series) Influenza for age 65+ 01/04/2022 Results Not on filefrom Last 3 Months Insurance Payer Benefit Plan / Subscriber ID Effective Dates Phone Addre ss Type Group MEDICARE PART A MEDICARE PART A [id number] 2006-Presen ATTN: CLAIMS - HB USE ONLY HB ONLY t [address] [facility] [place] [address] [employer] [place] [employer] CHOICE [id number] 2019-Present [address] [address] [place] [address] (Work) [id number] Advance Directives Latest Code Status on File Code Status Date Activated Date Inactivated Comments Full Code 05/11/2012 6:11 PM 05/12/2012 1:45 PM Care Teams Edge Glue Machine Tender Relationship Specialty Start Date End Date Nonstaff, Doctor PCP - General 05/16/12 NON STAFF DOCTOR
--- OUTSIDE RECORDS SUMMARY | 2022-03-30 12:37 | XMS_ITS | Encounter Summary ---
:[address] [facility] Address [address] [place] [address] Care Team Providers Name Role Phone Unavailable Primary Care Provider Unavailable Encounter Details Date Type Department Care Team Description 02/15/2022 Clinical Communication Department of Enoch Beavers Radiation Oncology [place] [address] [facility] [address] [place] [phone] Social History Tobacco Use Types Packs/Day Years Used Date Smoking Tobacco: Never Assessed Sex Assigned at Date Recorded Not on file documented as of this encounter Plan of Treatment Upcoming Encounters Date Type Specialty Care Team Description 04/03/2022 Appointment Radiation Oncology Agustin Beavers M.D. [address] [place], [place] [phone] (Wo rk) documented as of this encounter Visit Diagnoses Not on filedocumented in this encounter
--- OUTSIDE RECORDS SUMMARY | 2022-03-30 12:37 | XMS_ITS ---
:1940 Author Organization [facility] Address [address] [place] [address] Care Team Providers Name Role Phone Unavailable [...] Elapsed Days Session Dose Total Dos e [id number] 05/03/2021 28 300 cGy 6,000 cGy
--- OUTSIDE RECORDS SUMMARY | 2022-03-30 12:38 | XMS_ITS | Encounter Summary ---
:1940 Author Organization [facility] Address [address] [place] [address] Care Team Providers Name Role Phone Unavailable Primary Care Provider Unavailable Reason for Visit Radiation Therapy (Routine) - Closed Specialty Diagnoses / Procedures Referred By Contact Refer red To Contact Diagnoses Primary Malignant Neoplasm Of Prostate (HCC) Enoch Beavers M.D. [facility] Procedures Prior Auth Rad Tx [place] IMRT SIMPLE [address] [place] [address] Referral ID Status Reason Start Date Expiration Date Visits Requ ested Visits Authorized [id number] Closed 03/30/2021 01/11/2022 26 Encounter Details Date Type Department Care Team Description 04/05/2021 Hospital Encounter Department of Radiation Jessica Beavers, [place]cology [place] [address] [facility] [address] [place] [phone] Social History Tobacco Use Types Packs/Day Years [...] Appointment Radiation Oncology Agustin Beavers M.D. [address] [place], [place] [phone] (Wo rk) documented as of this encounter Visit Diagnoses Not on filedocumented in this encounter
--- OUTSIDE RECORDS SUMMARY | 2022-03-30 12:38 | XMS_ITS | Encounter Summary ---
:1940 Author Organization [facility] Address [address] [place] [address] Care Team Providers Name Role Phone Unavailable Primary Care Provider Unavailable Reason for Visit Radiation Therapy (Routine) - Closed Specialty Diagnoses / Procedures Referred By Contact Refer red To Contact Diagnoses Primary Malignant Neoplasm Of Prostate (HCC) Enoch Beavers M.D. [facility] Procedures Prior Auth Rad Tx [place] IMRT SIMPLE [address] [place] [address] Referral ID Status Reason Start Date Expiration Date Visits Requ ested Visits Authorized [id number] Closed 03/30/2021 01/11/2022 26 Encounter Details Date Type Department Care Team Description 04/13/2021 Hospital Encounter Department of Radiation Jessica Beavers, [place]cology [place] [address] [facility] [address] [place] [phone] Social History Tobacco Use Types Packs/Day Years [...] Appointment Radiation Oncology Agustin Beavers M.D. [address] [place], [place] [phone] (Wo rk) documented as of this encounter Visit Diagnoses Not on filedocumented in this encounter
--- OUTSIDE RECORDS SUMMARY | 2022-03-30 12:38 | XMS_ITS | Encounter Summary ---
:1940 Author Organization [facility] Address [address] [place] [address] Care Team Providers Name Role Phone Unavailable Primary Care Provider Unavailable Encounter Details Date Type Department Care Team Description 09/04/2021 Clinical Communication Department of Petra King Radiation Oncology in [place] [address] [place] [address] Social History Tobacco Use Types Packs/Day Years Used Date Smoking Tobacco: Never Assessed Sex Assigned at Date Recorded Not on file documented as of this encounter Plan of Treatment Upcoming Encounters Date Type Specialty Care Team Description 04/03/2022 Appointment Radiation Oncology Agustin Beavers M.D. [address] [place], [place] [phone] (Wo rk) documented as of this encounter Visit Diagnoses Not on filedocumented in this encounter
--- OUTSIDE RECORDS SUMMARY | 2022-03-30 12:38 | XMS_ITS | Encounter Summary ---
:1940 Author Organization [facility] Address [address] [place] [address] Care Team Providers Name Role Phone Unavailable Primary Care Provider Unavailable Reason for Visit Radiation Therapy (Routine) - Closed Specialty Diagnoses / Procedures Referred By Contact Refer red To Contact Diagnoses Primary Malignant Neoplasm Of Prostate (HCC) Enoch Beavers M.D. [facility] Procedures Prior Auth Rad Tx [place] IMRT SIMPLE [address] [place] [address] Referral ID Status Reason Start Date Expiration Date Visits Requ ested Visits Authorized [id number] Closed 03/30/2021 01/11/2022 26 Encounter Details Date Type Department Care Team Description 04/12/2021 Hospital Encounter Department of Radiation Jessica Beavers, [place]cology in [place] [address] [facility] [address] [place] [phone] Social History Tobacco Use Types Packs/Day Years [...] Appointment Radiation Oncology Agustin Beavers M.D. [address] [place], [place] [phone] (Wo rk) documented as of this encounter Visit Diagnoses Not on filedocumented in this encounter
--- OUTSIDE RECORDS SUMMARY | 2022-03-30 12:38 | XMS_ITS | Encounter Summary ---
:1940 Author Organization [facility] Address [address] [place] [address] Care Team Providers Name Role Phone Unavailable Primary Care Provider Unavailable Reason for Visit Radiation Therapy (Routine) - Closed Specialty Diagnoses / Procedures Referred By Contact Refer red To Contact Diagnoses Primary Malignant Neoplasm Of Prostate (HCC) Enoch Beavers M.D. [facility] Procedures Prior Auth Rad Tx [place] IMRT SIMPLE [address] [place] [address] Referral ID Status Reason Start Date Expiration Date Visits Requ ested Visits Authorized [id number] Closed 03/30/2021 01/11/2022 26 Encounter Details Date Type Department Care Team Description 04/18/2021 Hospital Encounter Department of Radiation Jessica Beavers, [place]cology [place] [address] [facility] [address] [place] [address] [phone] Social History Tobacco Use Types Packs/Day Years [...] Appointment Radiation Oncology Agustin Beavers M.D. [address] [place], [place] [phone] (Wo rk) documented as of this encounter Visit Diagnoses Not on filedocumented in this encounter
--- OUTSIDE RECORDS SUMMARY | 2022-03-30 12:38 | XMS_ITS | Encounter Summary ---
:1940 Author Organization [facility] Address [address] [place] [address] Care Team Providers Name Role Phone Unavailable Primary Care Provider Unavailable Reason for Referral Outpatient (Routine) - Closed Specialty Diagnoses / Procedures Referred By Contact Refer red To Contact Radiation Oncology Enoch Beavers M .D. [address] [address] Referral ID Status Reason Start Date Expiration Date Visits Requ ested Visits Authorized [id number] Closed 01/11/2021 01/11/2022 1 1 Scheduling Instructions Prior to simulation for consent OVEN TENDER Reason for Visit Outpatient (Routine) - Closed Specialty Diagnoses / Procedures Referred By Contact Refer moy To Contact Radiation Oncology Enoch Beavers M .D. [address] [address] Referral ID Status Reason Start Date Expiration Date Visits Requ ested Visits Authorized [id number] Closed 01/11/2021 01/11/2022 1 1 Encounter Details Date Type Department Care Team Description 03/27/2021 Hospital Encounter Department of Enoch Beavers Malignant Radiation Oncology [place] Neoplasm Of Prostate in [address] (HCC) (Primary Dx) [place], [place] 18[address] [facility] [address] [place], [place] [phone] (Work) [phone] Social History Tobacco Use Types Packs/Day Years Used Date Smoking Tobacco: Never Assessed Sex Assigned at Date Recorded Not on file documented as of this encounter Last Filed Vital Signs Vital Sign Reading Time Taken Comments Blood Pressure 136/53 03/27/2021 1:58 PM CORE OVEN TENDER Pulse 75 03/27/2021 1:58 PM CORE OVEN TENDER Temperature 36.3 ??C (97.4 ??F) 03/27/2021 1:58 PM CORE OVEN TENDER Respiratory Rate - - Oxygen Saturation - - Inhaled Oxygen Concentration - - Weight 108 kg (237 lb 14 oz) 03/27/2021 1:58 PM CORE OVEN TENDER Height - - Body Mass Index 34.13 [...] OF PRESENT ILLNESS Mr. Rudy Tejada (pronounced [place]) is an 81 y.o. male with stage [...] lateral base of the prostate demonstrated adenocarcinoma, [place] 3+4=7, involving 40% of the length of the core, perineural invasion not seen. Pathology of the left lateral apex of the prostate demonstrated adenocarcinoma, [place] 3+3=6, discontinuously involving 40% of the length of the core, perineural invasion not seen. Pathology of the left base of the prostate demonstrated adenocarcinoma, [place] 3+4=7, involving 90% of the length of [...] interested in consultation with Radiation Oncology in [place]. Dr. Espino discussed that he would typically [...] Radiation in Prostate Cancer?? trial (IRB# [id number]). We discussed the similarities anddifferences of proton [...] by: Enoch Beavers M.D. 03/27/2021 4:24 PM CORE OVEN TENDER Radiation Oncology [facility] [address] [place] [address] OVEN TENDER documented in this encounter Miscellaneous Notes Addendum Note - Siri Betancourt, C.N.AGuy - 03/27/2021 2:00 PM CORE OVEN TENDER Encounter addended by: Siri Betancourt C.NChica on: 03/28/2021 7:31 AM Actions taken: Letter saved OVEN TENDER Addendum Note - Enoch Beavers M.D. - 03/27/2021 2:00 PM CORE OVEN TENDER Encounter addended by: Enoch Beavers M.D. on: 03/31/2021 9:53 PM Actions taken: Flowsheet accepted OVEN TENDER documented in this encounter Plan of Treatment Upcoming Encounters Date Type Specialty Care Team Description 04/03/2022 Appointment Radiation Oncology Agustin Beavers M.D. [address] [place] [phone] (Wo rk) Scheduled Referrals Name Type Priority Associated Order Schedule Diagnoses Radiation Oncology Outpatient Referral Routine On ce for 1 office visit Occurrences sta rting (clinic) 03/27/2021 unti l 03/27/2021 documented as of this encounter Visit Diagnoses Diagnosis Primary Malignant Neoplasm Of Prostate ( HCC) - Primary documented in this encounter
--- OUTSIDE RECORDS SUMMARY | 2022-03-30 12:38 | XMS_ITS | Encounter Summary ---
:1940 Author Organization [facility] Address [address] [place] [address] Care Team Providers Name Role Phone Unavailable Primary Care Provider Unavailable Reason for Visit Radiation Therapy (Routine) - Closed Specialty Diagnoses / Procedures Referred By Contact Refer red To Contact Diagnoses Primary Malignant Neoplasm Of Prostate (HCC) Enoch Beavers M.D. [facility] Procedures Prior Auth Rad Tx [place] IMRT SIMPLE [address] [place] [address] Referral ID Status Reason Start Date Expiration Date Visits Requ ested Visits Authorized [id number] Closed 03/30/2021 01/11/2022 26 Encounter Details Date Type Department Care Team Description 04/19/2021 Hospital Encounter Department of Radiation Jessica Beavers, [place]cology [place] [address] [facility] 18[address] [place] [address] [phone] Social History Tobacco Use Types Packs/Day Years [...] Appointment Radiation Oncology Agustin Beavers M.D. 200 [place], [place] [phone] (Wo rk) documented as of this encounter Visit Diagnoses Not on filedocumented in this encounter
--- OUTSIDE RECORDS SUMMARY | 2022-03-30 12:38 | XMS_ITS | Encounter Summary ---
:1940 Author Organization [facility] Address [address] [place] [address] Care Team Providers Name Role Phone Unavailable Primary Care Provider Unavailable Reason for Visit Radiation Therapy (Routine) - Closed Specialty Diagnoses / Procedures Referred By Contact Refer red To Contact Diagnoses Primary Malignant Neoplasm Of Prostate (HCC) Enoch Beavers M.D. [facility] Procedures Prior Auth Rad Tx [place] IMRT SIMPLE [address] [place] [address] Referral ID Status Reason Start Date Expiration Date Visits Requ ested Visits Authorized [id number] Closed 03/30/2021 01/11/2022 26 Encounter Details Date Type Department Care Team Description 05/02/2021 Hospital Encounter Department of Radiation Jessica Beavers, [place]cology [place] [address] [facility] 18[address] [place] [address] [phone] Social History Tobacco Use Types Packs/Day Years [...] Appointment Radiation Oncology Agustin Beavers M.D. [address] [employer], [place] [phone] (Wo rk) documented as of this encounter Visit Diagnoses Not on filedocumented in this encounter
--- OUTSIDE RECORDS SUMMARY | 2022-03-30 12:38 | XMS_ITS | Encounter Summary ---
:1940 Author Organization [facility] Address [address] [place] [address] Care Team Providers Name Role Phone Unavailable Primary Care Provider Unavailable Reason for Referral Radiation Therapy (Routine) - Closed Specialty Diagnoses / Procedures Referred By Contact Refer red To Contact Diagnoses Primary Malignant Neoplasm Of Prostate (HCC) Enoch Beavers M.D. [facility] Procedures Management Visit [address] [place] [phone] Referral ID Status Reason Start Date Expiration Date Visits Requ ested Visits Authorized [id number] Closed 01/11/2021 01/11/2022 4 4 CRUSHING MACHINE OPERATOR Reason for Visit Radiation Therapy (Routine) - Closed Specialty Diagnoses / Procedures Referred By Contact Refer red To Contact Diagnoses Primary Malignant Neoplasm Of Prostate (HCC) [facility]ch [facility]vers [facility].D. [facility] Procedures Management Visit [address] [place] [phone] Referral ID Status Reason Start Date Expiration Date Visits Requ ested Visits Authorized [id number] Closed 01/11/2021 01/11/2022 4 4 Encounter Details Date Type Department Care Team Description 05/02/2021 Hospital Encounter Department of Jennifer Upton Malignant Radiation Oncology [place]re[place] Palafox Neoplasm Of Prostate in [place], [address] [facility] (HCC) [place], [place] 1821 [facility] [address] [place], [place] [phone] (Work) [phone] Social History Tobacco Use Types Packs/Day Years Used Date Smoking Tobacco: Never Assessed Sex Assigned at Date Recorded Not on file documented as of this encounter Last Filed Vital Signs Vital Sign Reading Time Taken Comments Blood Pressure - - Pulse - - Temperature 36.4 ??C (97.5 ??F) 05/02/2021 11:23 AM ROCK CRUSHING MACHINE OPERATOR Respiratory Rate - - Oxygen Saturation - - Inhaled Oxygen Concentration - - Weight 106 kg (233 lb 0.4 oz) 05/02/2021 11:23 AM ROCK CRUSHING MACHINE OPERATOR Height - - Body Mass Index [...] Days F1_Prostate 300 5700 6000 04/05/2021 05/02/2021 Course Summary 04/05/2021 05/02/2021 27 His oncologic [...] lateral base of the prostate demonstrated adenocarcinoma, [place] 3+4=7, involving 40% of the length of [...] lateral mid of the prostate demonstrated adenocarcinoma, [place] 3+4=7, involving 40% of the length of [...] interested in consultation with Radiation Oncology in [place]. ??Dr. Espino discussed that he would typically [...] and testosterone lab draw anastacio done at [facility] in [place] in 3 months followed by a return visit here with Dr. Beavers a few days later. Orders for these were already placed. He was asked to contact us sooner with questions or concerns. He verbally expressed his understanding of the plan. Signed by: Zahraa Duong P.A.-C., M.S. 05/02/2021 11:49 AM ROCK CRUSHING MACHINE OPERATOR CRUSHING MACHINE OPERATOR Associated attestation - Jennifer Upton M.D. - 05/02/2021 1:52 PM ROCK CRUSHING MACHINE OPERATOR I saw and evaluated the patient and participated in the kelley portions of the service. I reviewed the documentation of . Zahraa Duong PA-C, MS and agree with [...] 04/03/2022 Appointment Radiation Oncology Agustin Beavers M.D. [address] [place] [phone] (Wo rk) Scheduled Orders Name Type Priority Associated Diagnoses Order S chedule Management Visit Radiation Oncology Routine Primary Malignant Once for 1 Neoplasm Of Prostate Occurre nces starting (HCC) 05/02/2021 unti l 05/02/2021 documented as of this encounter Visit Diagnoses Diagnosis Primary Malignant Neoplasm Of Prostate ( HCC) documented in this encounter
--- OUTSIDE RECORDS SUMMARY | 2022-03-30 12:38 | XMS_ITS | Encounter Summary ---
:1940 Author Organization [facility] Address [address] [place] [address] Care Team Providers Name Role Phone Unavailable Primary Care Provider Unavailable Reason for Visit Radiation Therapy (Routine) - Closed Specialty Diagnoses / Procedures Referred By Contact Refer red To Contact Diagnoses Primary Malignant Neoplasm Of Prostate (HCC) Enoch Beavers M.D. [facility] Procedures Prior Auth Rad Tx [place] IMRT SIMPLE [address] [place] [address] Referral ID Status Reason Start Date Expiration Date Visits Requ ested Visits Authorized [id number] Closed 03/30/2021 01/11/2022 26 Encounter Details Date Type Department Care Team Description 04/25/2021 Hospital Encounter Department of Radiation Jessica Beavers, [place]cology [place] [address] [facility] 1821 [place] [address] [phone] Social History Tobacco Use Types Packs/Day Years [...] Appointment Radiation Oncology Agustin Beavers M.D. 200 [place], [place] [phone] (Wo rk) documented as of this encounter Visit Diagnoses Not on filedocumented in this encounter
--- OUTSIDE RECORDS SUMMARY | 2022-03-30 12:38 | XMS_ITS | Encounter Summary ---
:1940 Author Organization [facility] Address [address] [place] [address] Care Team Providers Name Role Phone Unavailable Primary Care Provider Unavailable Reason for Visit Reason Comments Med Refill Encounter Details Date Type Department Care Team Description 07/30/2021 Refill Department of Radiation Enoch Beavers M.D. Med Refill Oncology in [place], [address] [place] [address] 1821 [facility] [place] [address] [phone] Social History Tobacco Use Types Packs/Day Years Used Date Smoking Tobacco: Never Assessed Sex Assigned at Date Recorded Not on file documented as of this encounter Plan of Treatment Upcoming Encounters Date Type Specialty Care Team Description 04/03/2022 Appointment Radiation Oncology Agustin Beavers M.D. [address] [place], [place] [phone] (Wo rk) documented as of this encounter Visit Diagnoses Not on filedocumented in this encounter
--- OUTSIDE RECORDS SUMMARY | 2022-03-30 12:38 | XMS_ITS | Encounter Summary ---
:1940 Author Organization [facility] Address [address] [place] [address] Care Team Providers Name Role Phone Unavailable Primary Care Provider Unavailable Reason for Referral Radiation Therapy (Routine) - Closed Specialty Diagnoses / Procedures Referred By Contact Refer red To Contact Diagnoses Primary Malignant Neoplasm Of Prostate (HCC) Enoch Beavers M.D. [facility] Procedures Management Visit [address] [place] [phone] Referral ID Status Reason Start Date Expiration Date Visits Requ ested Visits Authorized [id number] Closed 01/11/2021 01/11/2022 4 4 ESSOR OF ENGLISH Reason for Visit Radiation Therapy (Routine) - Closed Specialty Diagnoses / Procedures Referred By Contact Refer red To Contact Diagnoses Primary Malignant Neoplasm Of Prostate (HCC) Enoch Beavers M.D. [facility] Procedures Management Visit [address] [place] [phone] Referral ID Status Reason Start Date Expiration Date Visits Requ ested Visits Authorized [id number] Closed 01/11/2021 01/11/2022 4 4 Encounter Details Date Type Department Care Team Description 04/18/2021 Hospital Encounter Department of Jennifer Upton Malignant Radiation Oncology [place] Palafox Neoplasm Of Prostate in [place], [address] [facility] (HCC) [place], [place] 1821 [facility] [address] [place], [place] [phone] (Work) [phone] Social History Tobacco Use Types Packs/Day Years Used Date Smoking Tobacco: Never Assessed Sex Assigned at Date Recorded Not on file documented as of this encounter Last Filed Vital Signs Vital Sign Reading Time Taken Comments Blood Pressure - - Pulse - - Temperature 36.2 ??C (97.1 ??F) 04/18/2021 3:23 PM PROFESSOR OF ENGLISH Respiratory Rate - - Oxygen Saturation - - Inhaled Oxygen Concentration - - Weight 107 kg (235 lb 7.2 oz) 04/18/2021 3:23 PM PROFESSOR OF ENGLISH Height - - Body Mass Index 33.78 [...] by: Esther Johnston R.N. 04/18/2021 3:32 PM PROFESSOR OF ENGLISH ESSOR OF ENGLISH documented in this encounter Plan of Treatment Upcoming Encounters Date Type Specialty Care Team Description 04/03/2022 Appointment Radiation Oncology Agustin Beavers M.D. [address] [place] [phone] (Wo rk) Scheduled Orders Name Type Priority Associated Diagnoses Order S chedule Management Visit Radiation Oncology Routine Primary Malignant Once for 1 Neoplasm Of Prostate Occurre nces starting (HCC) 04/18/2021 unti l 04/18/2021 documented as of this encounter Visit Diagnoses Diagnosis Primary Malignant Neoplasm Of Prostate ( HCC) documented in this encounter
--- OUTSIDE RECORDS SUMMARY | 2022-03-30 12:38 | XMS_ITS | Encounter Summary ---
:1940 Author Organization [facility] Address [address] [place] [address] Care Team Providers Name Role Phone Unavailable Primary Care Provider Unavailable Reason for Visit Radiation Therapy (Routine) - Closed Specialty Diagnoses / Procedures Referred By Contact Refer red To Contact Diagnoses Primary Malignant Neoplasm Of Prostate (HCC) Enoch Beavers M.D. [facility] Procedures Prior Auth Rad Tx [place] IMRT SIMPLE [address] [place] [address] Referral ID Status Reason Start Date Expiration Date Visits Requ ested Visits Authorized [id number] Closed 03/30/2021 01/11/2022 26 Encounter Details Date Type Department Care Team Description 04/26/2021 Hospital Encounter Department of Radiation Jessica Beavers, [place]cology in [place] [address] [facility] 1821 [place] [address] [phone] Social History Tobacco Use Types Packs/Day Years [...] Appointment Radiation Oncology Agustin Beavers M.D. 200 [place], [place] [phone] (Wo rk) documented as of this encounter Visit Diagnoses Not on filedocumented in this encounter
--- OUTSIDE RECORDS SUMMARY | 2022-03-30 12:38 | XMS_ITS | Encounter Summary ---
:1940 Author Organization [facility] Address [address] [place] [address] Care Team Providers Name Role Phone Unavailable Primary Care Provider Unavailable Reason for Visit Radiation Therapy (Routine) - Closed Specialty Diagnoses / Procedures Referred By Contact Refer red To Contact Diagnoses Primary Malignant Neoplasm Of Prostate (HCC) Enoch Beavers M.D. [facility] Procedures Prior Auth Rad Tx [place] IMRT SIMPLE [address] [place] [address] Referral ID Status Reason Start Date Expiration Date Visits Requ ested Visits Authorized [id number] Closed 03/30/2021 01/11/2022 26 Encounter Details Date Type Department Care Team Description 04/07/2021 Hospital Encounter Department of Radiation Jessica Beavers, [place]cology [place] [address] [facility] 1821 [place] [address] [phone] Social History Tobacco Use Types Packs/Day Years [...] Appointment Radiation Oncology Agustin Beavers M.D. [address] [place], [place] [phone] (Wo rk) documented as of this encounter Visit Diagnoses Not on filedocumented in this encounter
--- OUTSIDE RECORDS SUMMARY | 2022-03-30 12:38 | XMS_ITS | Encounter Summary ---
:1940 Author Organization [facility] Address [address] [place] [address] Care Team Providers Name Role Phone Unavailable Primary Care Provider Unavailable Reason for Visit Radiation Therapy (Routine) - Closed Specialty Diagnoses / Procedures Referred By Contact Refer red To Contact Diagnoses Primary Malignant Neoplasm Of Prostate (HCC) Enoch Beavers M.D. [facility] Procedures Prior Auth Rad Tx [place] IMRT SIMPLE [address] [place] [address] Referral ID Status Reason Start Date Expiration Date Visits Requ ested Visits Authorized [id number] Closed 03/30/2021 01/11/2022 26 Encounter Details Date Type Department Care Team Description 05/03/2021 Hospital Encounter Department of Radiation Jessica Beavers, [place]cology [place] [address] [facility] [address] [place] [address] [phone] Social History Tobacco Use Types Packs/Day Years [...] Appointment Radiation Oncology Agustin Beavers M.D. 200 [place], [place] [phone] (Wo rk) documented as of this encounter Visit Diagnoses Not on filedocumented in this encounter
--- OUTSIDE RECORDS SUMMARY | 2022-03-30 12:38 | XMS_ITS | Encounter Summary ---
:1940 Author Organization [facility] Address [address] [place] [address] Care Team Providers Name Role Phone Unavailable Primary Care Provider Unavailable Reason for Visit Radiation Therapy (Routine) - Closed Specialty Diagnoses / Procedures Referred By Contact Refer red To Contact Diagnoses Primary Malignant Neoplasm Of Prostate (HCC) Enoch Beavers M.D. [facility] Procedures Prior Auth Rad Tx [place] IMRT SIMPLE [address] [place] [address] Referral ID Status Reason Start Date Expiration Date Visits Requ ested Visits Authorized [id number] Closed 03/30/2021 01/11/2022 26 26 Encounter Details Date Type Department Care Team Description 04/14/2021 Hospital Encounter Department of Radiation Jessica Beavers, [place]cology [place] [address] [facility] 1821 [place] [address] [phone] Social History Tobacco Use Types Packs/Day Years [...] Appointment Radiation Oncology Agustin Beavers M.D. 200 [place], [place] [phone] (Wo rk) documented as of this encounter Visit Diagnoses Not on filedocumented in this encounter
--- OUTSIDE RECORDS SUMMARY | 2022-03-30 12:38 | XMS_ITS | Encounter Summary ---
:1940 Author Organization [facility] Address [address] [place] [address] Care Team Providers Name Role Phone Unavailable Primary Care Provider Unavailable Reason for Referral Outpatient (Routine) - Closed Specialty Diagnoses / Procedures Referred By Contact Refer red To Contact Radiation Oncology Enoch Beavers M .D. [facility] [address] [place] [address] Referral ID Status Reason Start Date Expiration Date Visits Requ ested Visits Authorized [id number] Closed 04/25/2021 04/25/2022 1 1 T HARVEST WORKER Radiation Therapy (Routine) - Closed Specialty Diagnoses / Procedures Referred By Contact Refer red To Contact Diagnoses Primary Malignant Neoplasm Of Prostate (HCC) Enoch Beavers M.D. [facility] Procedures Management Visit [address] [place] [address] Referral ID Status Reason Start Date Expiration Date Visits Requ ested Visits Authorized [id number] Closed 01/11/2021 01/11/2022 4 4 T HARVEST WORKER Reason for Visit Radiation Therapy (Routine) - Closed Specialty Diagnoses / Procedures Referred By Contact Refer red To Contact Diagnoses Primary Malignant Neoplasm Of Prostate (HCC) Enoch Beavers M.D. [facility] Procedures Management Visit [address] [place] [address] Referral ID Status Reason Start Date Expiration Date Visits Requ ested Visits Authorized [id number] Closed 01/11/2021 01/11/2022 4 4 Encounter Details Date Type Department Care Team Description 04/25/2021 Hospital Encounter Department of Enoch Beavers Malignant Radiation Oncology [place] Neoplasm Of Prostate in [place] [address] [address] [facility] [place], [place] 18[address] [facility] [address] [place], [place] [phone] [phone] (Work) [phone] Social History Tobacco Use Types Packs/Day Years Used Date Smoking Tobacco: Never Assessed Sex Assigned at Date Recorded Not on file documented as of this encounter Last Filed Vital Signs Vital Sign Reading Time Taken Comments Blood Pressure - - Pulse - - Temperature 36.6 ??C (97.8 ??F) 04/25/2021 3:29 PM FRUIT HARVEST WORKER Respiratory Rate - - Oxygen Saturation - - Inhaled Oxygen Concentration - - Weight 107 kg (236 lb 15.9 oz) 04/25/2021 3:29 PM FRUIT HARVEST WORKER Height - - Body Mass Index 34.01 [...] Dr. Beavers HISTORY OF PRESENT ILLNESS Mr. Ruyd Tejada is an 81 y.o. male with adenocarcinoma of the prostate. He is now undergoing radiotherapy. Treatment Course: 1x Prostate Plan ID Fractions Dose / Fraction (cGy) Dose Treated (cGy) Dose Planned (cGy) First Treatment Last Treatment Elapsed Days F1_Prostate 300 4500 6000 04/05/2021 04/25/2021 20 Course Summary 04/05/2021 04/25/2021 20 The patient [...] testosterone 3 days ahead of [facility] at [facility] location. Dr. Upton will see patient in last management visit next week. He will contact us with any questions or concerns. We will continue with radiation treatment as planned. Signed by: Esther Johnston R.N. 04/25/2021 3:51 PM FRUIT HARVEST WORKER I saw and evaluated the patient and [...] by: Enoch Beavers M.D. 04/25/2021 5:59 PM FRUIT HARVEST WORKER [facility] [address] [place] [address] T HARVEST WORKER documented in this encounter Plan of Treatment Upcoming Encounters Date Type Specialty Care Team Description 04/03/2022 Appointment Radiation Oncology Agustin Beavers M.D. [address] [place], [place] [phone] (Wo rk) Scheduled Orders Name [...]
--- OUTSIDE RECORDS SUMMARY | 2022-03-30 12:38 | XMS_ITS | Encounter Summary ---
:1940 Author Organization [facility] Address [address] [place] [address] Care Team Providers Name Role Phone Unavailable Primary Care Provider Unavailable Encounter Details Date Type Department Care Team Description 06/14/2021 Clinical Communication Department of Lesly Paul Radiation Oncology in [address] [place] [address] [place] [phone] Social History Tobacco Use Types Packs/Day Years Used Date Smoking Tobacco: Never Assessed Sex Assigned at Date Recorded Not on file documented as of this encounter Plan of Treatment Upcoming Encounters Date Type Specialty Care Team Description 04/03/2022 Appointment Radiation Oncology Agustin Beavers M.D. [address] [place], [place] [phone] (Wo rk) documented as of this encounter Visit Diagnoses Not on filedocumented in this encounter
--- OUTSIDE RECORDS SUMMARY | 2022-03-30 12:38 | XMS_ITS | Encounter Summary ---
:1940 Author Organization [facility] Address [address] [place] [address] Care Team Providers Name Role Phone Unavailable Primary Care Provider Unavailable Reason for Visit Radiation Therapy (Routine) - Closed Specialty Diagnoses / Procedures Referred By Contact Refer red To Contact Diagnoses Primary Malignant Neoplasm Of Prostate (HCC) Enoch Beavers M.D. [facility] Procedures Prior Auth Rad Tx [place] IMRT SIMPLE [address] [place] [address] Referral ID Status Reason Start Date Expiration Date Visits Requ ested Visits Authorized [id number] Closed 03/30/2021 01/11/2022 26 26 Encounter Details Date Type Department Care Team Description 05/01/2021 Hospital Encounter Department of Radiation Jessica Beavers, Oncology in [place] [address] [facility] [address] [place] [address] [phone] Social History Tobacco Use Types Packs/Day Years [...] Appointment Radiation Oncology Agustin Beavers M.D. [address] [place], [place] [phone] (Wo rk) documented as of this encounter Visit Diagnoses Not on filedocumented in this encounter
--- OUTSIDE RECORDS SUMMARY | 2022-03-30 12:38 | XMS_ITS | Encounter Summary ---
:1940 Author Organization [facility] Address [address] [place] [address] Care Team Providers Name Role Phone Unavailable Primary Care Provider Unavailable Reason for Visit Radiation Therapy (Routine) - Closed Specialty Diagnoses / Procedures Referred By Contact Refer red To Contact Diagnoses Primary Malignant Neoplasm Of Prostate (HCC) Enoch Beavers M.D. [facility] Procedures Prior Auth Rad Tx [place] IMRT SIMPLE [address] [place] [address] Referral ID Status Reason Start Date Expiration Date Visits Requ ested Visits Authorized [id number] Closed 03/30/2021 01/11/2022 26 Encounter Details Date Type Department Care Team Description 04/06/2021 Hospital Encounter Department of Radiation Jessica Beavers, Oncology in [place] [address] [facility] [address] [place] [phone] Social History Tobacco Use Types Packs/Day Years [...] Appointment Radiation Oncology Agustin Beavers M.D. [address] [place], [place] [phone] (Wo rk) documented as of this encounter Visit Diagnoses Not on filedocumented in this encounter
--- OUTSIDE RECORDS SUMMARY | 2022-03-30 12:38 | XMS_ITS | Encounter Summary ---
:1940 Author Organization [facility] Address [address] [place] [address] Care Team Providers Name Role Phone Unavailable Primary Care Provider Unavailable Reason for Visit Radiation Therapy (Routine) - Closed Specialty Diagnoses / Procedures Referred By Contact Refer red To Contact Diagnoses Primary Malignant Neoplasm Of Prostate (HCC) Enoch Beavers M.D. [facility] Procedures Prior Auth Rad Tx [place] IMRT SIMPLE [address] [place] [address] Referral ID Status Reason Start Date Expiration Date Visits Requ ested Visits Authorized [id number] Closed 03/30/2021 01/11/2022 26 Encounter Details Date Type Department Care Team Description 04/20/2021 Hospital Encounter Department of Radiation Jessica Beavers, Oncology in [place] [address] [facility] [address] [place] [address] [phone] Social History Tobacco Use Types Packs/Day Years [...] Appointment Radiation Oncology Agustin Beavers M.D. [address] [place], [place] [phone] (Wo rk) documented as of this encounter Visit Diagnoses Not on filedocumented in this encounter
--- OUTSIDE RECORDS SUMMARY | 2022-03-30 12:38 | XMS_ITS | Encounter Summary ---
:1940 [address] [facility] Address [address] [place] [address] Care Team Providers Name Role Phone Unavailable Primary Care Provider Unavailable Reason for Referral Outpatient (Routine) - Authorized Specialty Diagnoses / Procedures Referred By Contact Refer red To Contact Radiation Oncology Diagnoses Primary Malignant Neoplasm Of Prostate (HCC) Zahraa Duong P.A.-C., [facility] Angeles Avalos M.S. [address] [place] [phone] Referral ID Status Reason Start Date Expiration Date Visits V isits Requested Authorized [id number] Authorized 11/09/2021 11/09/2022 1 1 Encounter Details Date Type Department Care Team Description 11/09/2021 Orders Only Department of Radiation Marya Rivero Pri mary Malignant Oncology in [facility] Neoplasm Of Prostate [address] (HCC) (Primary Dx) [address] [place] [phone] Social History Tobacco Use Types Packs/Day Years Used Date Smoking Tobacco: Never Assessed Sex Assigned at Date Recorded Not on file documented as of this encounter Plan of Treatment Upcoming Encounters Date Type Specialty Care Team Description 04/03/2022 Appointment Radiation Oncology Agustin Beavers M.D. [address] [place], [place] [phone] (Wo rk) Scheduled Orders Name Type Priority Associated Diagnoses Order S alex PSA (Prostate-Specific Lab Routine Primary Malignant Expected: 04/02/2022 Antigen), Diagnostic Neoplasm Of Prostate (Approximate), (HCC) Expires: 2022 Scheduled Referrals Name Type Priority Associated Diagnoses Order S alex Radiation Oncology Outpatient Referral Routine Primary Maligna nt Expected: office visit Neoplasm Of Prostate 022 (clinic) (HCC) (Approximate), Expires: 11/09/2022 documented as of this encounter Visit Diagnoses Diagnosis Primary Malignant Neoplasm Of Prostate ( HCC) - Primary documented in this encounter
--- OUTSIDE RECORDS SUMMARY | 2022-03-30 12:38 | XMS_ITS | Encounter Summary ---
:1940 Author Organization [facility] Address [address] [place] [address] Care Team Providers Name Role Phone Unavailable Primary Care Provider Unavailable Reason for Visit Radiation Therapy (Routine) - Closed Specialty Diagnoses / Procedures Referred By Contact Refer red To Contact Diagnoses Primary Malignant Neoplasm Of Prostate (HCC) Enoch Beavers M.D. [facility] Procedures Prior Auth Rad Tx [place] IMRT SIMPLE [address] [place] [address] Referral ID Status Reason Start Date Expiration Date Visits Requ ested Visits Authorized [id number] Closed 03/30/2021 01/11/2022 26 Encounter Details Date Type Department Care Team Description 04/17/2021 Hospital Encounter Department of Radiation Jessica Beavers, Oncology in [place] [address] [facility] [address] [place] [phone] [phone] Social History Tobacco Use Types Packs/Day Years [...] Appointment Radiation Oncology Agustin Beavers M.D. [address] [place], [place] [phone] (Wo rk) documented as of this encounter Visit Diagnoses Not on filedocumented in this encounter
--- OUTSIDE RECORDS SUMMARY | 2022-03-30 12:38 | XMS_ITS | Encounter Summary ---
:1940 Author Organization [facility] Address [address] [place] [address] Care Team Providers Name Role Phone Unavailable Primary Care Provider Unavailable Reason for Visit Radiation Therapy (Routine) - Closed Specialty Diagnoses / Procedures Referred By Contact Refer red To Contact Diagnoses Primary Malignant Neoplasm Of Prostate (HCC) Enoch Beavers M.D. [facility] Procedures Prior Auth Rad Tx [place] IMRT SIMPLE [address] [place] [address] Referral ID Status Reason Start Date Expiration Date Visits Requ ested Visits Authorized [id number] Closed 03/30/2021 01/11/2022 26 Encounter Details Date Type Department Care Team Description 04/27/2021 Hospital Encounter Department of Radiation Jessica Beavers, Oncology in [place] [address] [facility] [address] [place] [phone] [phone] Social History Tobacco Use Types Packs/Day Years [...] Appointment Radiation Oncology Agustin Beavers M.D. [address] [place], [place] [phone] (Wo rk) documented as of this encounter Visit Diagnoses Not on filedocumented in this encounter
--- OUTSIDE RECORDS SUMMARY | 2022-03-30 12:38 | XMS_ITS | Encounter Summary ---
:1940 Author Organization [facility] Address [address] [place] [address] Care Team Providers Name Role Phone Unavailable Primary Care Provider Unavailable Reason for Visit Radiation Therapy (Routine) - Closed Specialty Diagnoses / Procedures Referred By Contact Refer red To Contact Diagnoses Primary Malignant Neoplasm Of Prostate (HCC) Enoch Beavers M.D. [facility] Procedures Prior Auth Rad Tx [place] IMRT SIMPLE [address] [place] [address] Referral ID Status Reason Start Date Expiration Date Visits Requ ested Visits Authorized [id number] Closed 03/30/2021 01/11/2022 26 Encounter Details Date Type Department Care Team Description 04/10/2021 Hospital Encounter Department of Radiation Jessica Baevers, Oncology in [place] [address] [facility] [address] [place] [phone] [phone] Social History Tobacco Use Types Packs/Day Years [...] Appointment Radiation Oncology Agustin Beavers M.D. [address] [place], [place] [phone] (Wo rk) documented as of this encounter Visit Diagnoses Not on filedocumented in this encounter
--- OUTSIDE RECORDS SUMMARY | 2022-03-30 12:38 | XMS_ITS | Encounter Summary ---
:1940 Author Organization [facility] Address [address] [place] [address] Care Team Providers Name Role Phone Unavailable Primary Care Provider Unavailable Reason for Visit Radiation Therapy (Routine) - Closed Specialty Diagnoses / Procedures Referred By Contact Refer red To Contact Diagnoses Primary Malignant Neoplasm Of Prostate (HCC) Enoch Beavers M.D. [facility] Procedures Prior Auth Rad Tx [place] IMRT SIMPLE [address] [place] [address] Referral ID Status Reason Start Date Expiration Date Visits Requ ested Visits Authorized [id number] Closed 03/30/2021 01/11/2022 26 Encounter Details Date Type Department Care Team Description 04/11/2021 Hospital Encounter Department of Radiation Jessica Beavers, Oncology in [place] [address] [facility] [address] [place] [address] [phone] Social History Tobacco Use Types Packs/Day Years [...] Appointment Radiation Oncology Agustin Beavers M.D. [address] [place], [place] [phone] (Wo rk) documented as of this encounter Visit Diagnoses Not on filedocumented in this encounter
--- OUTSIDE RECORDS SUMMARY | 2022-03-30 12:38 | XMS_ITS | Encounter Summary ---
:1940 Author Organization [facility] Address [address] [place] [address] Care Team Providers Name Role Phone Unavailable Primary Care Provider Unavailable Reason for Visit Radiation Therapy (Routine) - Closed Specialty Diagnoses / Procedures Referred By Contact Refer red To Contact Diagnoses Primary Malignant Neoplasm Of Prostate (HCC) Enoch Beavers M.D. [facility] Procedures Prior Auth Rad Tx [place] IMRT SIMPLE [address] [place] [address] Referral ID Status Reason Start Date Expiration Date Visits Requ ested Visits Authorized [id number] Closed 03/30/2021 01/11/2022 26 Encounter Details Date Type Department Care Team Description 04/24/2021 Hospital Encounter Department of Radiation Jessica Beavers, Oncology in [place] [address] [facility] [address] [place] [address] [phone] Social History Tobacco Use Types Packs/Day Years [...] Appointment Radiation Oncology Agustin Beavers M.D. [address] [place], [place] [phone] (Wo rk) documented as of this encounter Visit Diagnoses Not on filedocumented in this encounter
--- OUTSIDE RECORDS SUMMARY | 2022-03-30 12:38 | XMS_ITS | Encounter Summary ---
:1940 Author Organization [facility] Address [address] [place] [address] Care Team Providers Name Role Phone Unavailable Primary Care Provider Unavailable Encounter Details Date Type Department Care Team Description 05/03/2021 Documentation Department of Radiation Enoch Beavers, Oncology in [place] [address] [facility] [address] [place] [address] [phone] (Wo rk) Social History Tobacco Use Types Packs/Day Years Used Date Smoking Tobacco: Never Assessed Sex Assigned at Date Recorded Not on file documented as of this encounter Miscellaneous Notes Radiation Completion Notes - Jodi Dunn R.N. - 05/03/2021 11:59 PM CONTINUITY CLERK DIAGNOSIS: Primary Malignant Neoplasm of Prostate Attending [...] by: Jodi Dunn R.N., 05/19/2021 3:40 PM CONTINUITY CLERK INUITY CLERK documented in this encounter Plan of Treatment Upcoming Encounters Date Type Specialty Care Team Description 04/03/2022 Appointment Radiation Oncology Agustin Beavers M.D. [address] [place] [phone] (Wo rk) documented as of this encounter Visit Diagnoses Diagnosis Primary Malignant Neoplasm Of Prostate ( HCC) - Primary documented in this encounter
--- OUTSIDE RECORDS SUMMARY | 2022-03-30 12:38 | XMS_ITS | Encounter Summary ---
:1940 Author Organization [facility] Address [address] [place] [address] Care Team Providers Name Role Phone Unavailable Primary Care Provider Unavailable Reason for Visit Outpatient (Routine) - Closed Specialty Diagnoses / Procedures Referred By Contact Refer red To Contact Radiation Oncology Enoch Beavers M .D. [facility] [address] [place] [phone] Referral ID Status Reason Start Date Expiration Date Visits Requ ested Visits Authorized [id number] Closed 01/11/2021 01/11/2022 1 1 Encounter Details Date Type Department Care Team Description 03/17/2021 - Hospital Encounter Department of Ruthann, Primary Malignant 04/16/2021 Radiation Oncology Enoch Hamilton M.D. Neoplasm Of Prostate in [address] (HCC) (Primary Dx) [place], [place] [address] [facility] [address] [place], [place] [phone] [address] (Work) [phone] Social History Tobacco Use Types Packs/Day Years [...] Care Team Description 04/03/2022 Appointment Radiation Oncology gAustin Beavers M.D. [address] [place], [place] [phone] (Wo rk) documented as of this encounter Visit Diagnoses Diagnosis Primary Malignant Neoplasm Of Prostate ( HCC) - Primary documented in this encounter
--- OUTSIDE RECORDS SUMMARY | 2022-03-30 12:38 | XMS_ITS | Encounter Summary ---
:1940 Author Organization [facility] Address [address] [place] [address] Care Team Providers Name Role Phone Unavailable Primary Care Provider Unavailable Reason for Referral Radiation Therapy (Routine) - Closed Specialty Diagnoses / Procedures Referred By Contact Refer red To Contact Diagnoses Primary Malignant Neoplasm Of Prostate (HCC) Enoch Beavers M.D. 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 [facility] Procedures Management Visit [address] [place] [address] Referral ID Status Reason Start Date Expiration Date Visits Requ ested Visits Authorized [id number] Closed 01/11/2021 01/11/2022 4 4 Encounter Details Date Type Department Care Team Description 04/11/2021 Hospital Encounter Department of Enoch Beavers Malignant Radiation Oncology [place] Neoplasm Of Prostate in [place], [address] [facility] (HCC) [place], [place] [address] [facility] [address] [place], [place] [phone] (Work) [phone] Social History Tobacco Use Types Packs/Day Years Used Date Smoking Tobacco: Never Assessed Sex Assigned at Date Recorded Not on file documented as of this encounter Last Filed Vital Signs Vital Sign Reading Time Taken Comments Blood Pressure - - Pulse - - Temperature 36.6 ??C (97.8 ??F) 04/11/2021 9:10 AM ROTARY SHEAR WORKER HELPER Respiratory Rate - - Oxygen Saturation - - Inhaled Oxygen Concentration - - Weight 108 kg (237 lb 7 oz) 04/11/2021 9:10 AM ROTARY SHEAR WORKER HELPER Height - - Body Mass Index 34.07 [...] Prostate (HCC) SUPERVISED BY: Enoch Beavers M.D. ([id number]) HISTORY OF PRESENT ILLNESS Mr. Rudy Tejada [...] by: Esther Johnston R.N. 04/11/2021 9:14 AM ROTARY SHEAR WORKER HELPER I saw and evaluated the patient and participated in the kelley portions of the service. I reviewed the documentation of Esther Johnston R.N. and agree with the findings and plan. The patient appears well onexam. He will continue with treatment as planned. Signed by: Enoch Beavers M.D. 04/11/2021 2:02 PM ROTARY SHEAR WORKER HELPER [facility] [address] [place] [address] RY SHEAR WORKER HELPER documented in this encounter Plan of Treatment Upcoming Encounters Date Type Specialty Care Team Description 04/03/2022 Appointment Radiation Oncology Agustin Beavers M.D. [address] [place], [place] [phone] (Wo rk) Scheduled Orders Name Type Priority Associated Diagnoses Order S chedule Management Visit Radiation Oncology Routine Primary Malignant Once for 1 Neoplasm Of Prostate Occurre nces starting (HCC) 04/11/2021 unti l 04/11/2021 documented as of this encounter Visit Diagnoses Diagnosis Primary Malignant Neoplasm Of Prostate ( HCC) documented in this encounter
--- OUTSIDE RECORDS SUMMARY | 2022-03-30 12:39 | XMS_ITS ---
:1940 Author Care Team Providers Name Role Phone ADAM LAMA MD Primary Care Provider [phone] Allergies Code Code System Name Reaction Severity [...] CHRONIC 10/31/2020 NM, Bone Scan, Whole Body [facility] Radiology Department [address] [place] [address] (Work Place) 10/31/2020 CT, Abdomen + Pelvis, W/ Contrast [facility] Radiology Department [address] [place] [address] (Work Place) Results Lab Results None recorded. Past Encounters 12/26/2020 Carcinoma of Prostate Reji Espino MD: [address] [facility] [place], [address], [place] [address], Ph. 10/31/2020 Raised Prostate Specific Antigen; Malign ant Tumor of Prostate Josiah Joshi MD: [address] [place] [address], Ph. 10/04/2020 Raised Prostate Specific Antigen Josiah Joshi MD: [address] [place] [address], Ph. Social History Tobacco Smoking Status Former [...]
--- OUTSIDE RECORDS SUMMARY | 2022-03-30 12:39 | XMS_ITS | Encounter Summary ---
:1940 Author Organization [facility] Address [address] [place] [address] Care Team Providers Name Role Phone Unavailable Primary Care Provider Unavailable Reason for Referral Radiation Therapy (Routine) - Closed Specialty Diagnoses / Procedures Referred By Contact Refer red To Contact Diagnoses Primary Malignant Neoplasm Of Prostate (HCC) Enoch Beavers M.D. [facility] Procedures Initial Rad Onc Treatment Planning CT Simulation [address] [place] [address] Referral ID Status Reason Start Date Expiration Date Visits Requ ested Visits Authorized [id number] Closed 01/11/2021 01/11/2022 1 1 L ASSEMBLER Reason for Visit Radiation Therapy (Routine) - Closed Specialty Diagnoses / Procedures Referred By Contact Refer red To Contact Diagnoses Primary Malignant Neoplasm Of Prostate (HCC) Enoch Beavers M.D. [facility] Procedures Initial Rad Onc Treatment Planning CT Simulation [address] [place] [address] Referral ID Status Reason Start Date Expiration Date Visits Requ ested Visits Authorized [id number] Closed 01/11/2021 01/11/2022 1 1 Encounter Details Date Type Department Care Team Description 03/27/2021 Hospital Encounter Department of Enoch Beavers Malignant Radiation Oncology [place] Neoplasm Of Prostate in [place], [address] [facility] (HCC) [place], [place] [address] [facility] [address] [place], [place] [phone] [phone] (Work) [phone] Social History Tobacco Use Types Packs/Day Years [...] planning. CT images were transferred to the [employer] treatment planning system, after a reference isocenter was determined and marked. Segmentation and treatment planning will take place priorto treatment delivery. Patient set up and imaging was appropriate and completed without incident. Budget Accountant use: No L ASSEMBLER documented in this encounter Plan of Treatment Upcoming Encounters Date Type Specialty Care Team Description 04/03/2022 Appointment Radiation Oncology Agustin Beavers M.D. 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 documented in this encounter Results Initial Rad Onc Treatment Planning CT Simulation (03/27/2021 3:09 PM SHELL ASSEMBLER) Specimen (Source) Anatomical Location Collection Method / Collectio n Time Received Time / Laterality Volume Narrative GARCIA HARDY - 03/27/2021 3:09 PM SHELL ASSEMBLER Ruthie Colon R, RTT ? 03/27/2021 ??3:10 PM Initial Rad Onc Treatment Planning CT Si mulation Date/Time: 03/27/2021 3:09 PM Performed by: Enoch Beavers M.D. Authorized by: Enoch Beavers M.D. Enoch Beavers M.D. RADIATION ONCOLOGY ORDERABLE S Performing Organization Address City/State/ZIP Code Phon e Number [facility] na documented in this encounter Visit Diagnoses Diagnosis Primary Malignant Neoplasm Of Prostate ( HCC) documented in this encounter
--- OUTSIDE RECORDS SUMMARY | 2022-03-30 12:39 | XMS_ITS | Encounter Summary ---
:1940 Author Organization [facility] Address [address] [place] [address] Care Team Providers Name Role Phone Unavailable Primary Care Provider Unavailable Reason for Visit Reason Comments Med Refill Encounter Details Date Type Department Care Team Description 02/12/2021 Refill Department of Radiation Enoch Beavers M.D. Med Refill Oncology in [place], [address] [place] [address] [address]21 [facility] [place] [address] [phone] Social History Tobacco Use Types Packs/Day Years Used Date Smoking Tobacco: Never Assessed Sex Assigned at Date Recorded Not on file documented as of this encounter Plan of Treatment Upcoming Encounters Date Type Specialty Care Team Description 04/03/2022 Appointment Radiation Oncology Agustin Beavers M.D. [address] [place], [place] [phone] (Wo rk) documented as of this encounter Visit Diagnoses Not on filedocumented in this encounter
--- OUTSIDE RECORDS SUMMARY | 2022-03-30 12:39 | XMS_ITS | Encounter Summary ---
:1940 Author Organization [facility] Address [address] [place] [address] Care Team Providers Name Role Phone Unavailable Primary Care Provider Unavailable Encounter Details Date Type Department Care Team Description 01/13/2021 Orders Only RST PCP HLTH Gogo Alarcon M.D. [address] [place], [place] [phone] (Wo franco) Social History Tobacco Use Types Packs/Day Years Used Date Smoking Tobacco: Never Assessed Sex Assigned at Date Recorded Not on file documented as of this encounter Plan of Treatment Upcoming Encounters Date Type Specialty Care Team Description 04/03/2022 Appointment Radiation Oncology Agustin Beavers M.D. [address] [place], [place] [phone] (Wo rk) documented as of this encounter Visit Diagnoses Not on filedocumented in this encounter
--- OUTSIDE RECORDS SUMMARY | 2022-03-30 12:39 | XMS_ITS | Encounter Summary ---
:1940 Author Organization [facility] Address [address] [place] [address] Care Team Providers Name Role Phone Unavailable Primary Care Provider Unavailable Reason for Visit Reason Comments Med Refill Encounter Details Date Type Department Care Team Description 01/24/2021 Refill Department of Radiation Enoch Beavers M.D. Med Refill Oncology in [place], [address] [place] [address] [address] [place] [address] [phone] Social History Tobacco Use Types Packs/Day Years Used Date Smoking Tobacco: Never Assessed Sex Assigned at Date Recorded Not on file documented as of this encounter Plan of Treatment Upcoming Encounters Date Type Specialty Care Team Description 04/03/2022 Appointment Radiation Oncology Agustin Beavers M.D. [address] [place], [place] [phone] (Wo rk) documented as of this encounter Visit Diagnoses Not on filedocumented in this encounter
--- OUTSIDE RECORDS SUMMARY | 2022-03-30 12:39 | XMS_ITS | Encounter Summary ---
:1940 Author Organization [facility] Address [address] [place] [address] Care Team Providers Name Role Phone Unavailable Primary Care Provider Unavailable Reason for Referral Outpatient (Routine) - Closed Specialty Diagnoses / Procedures Referred By Contact Refer red To Contact Radiation Oncology Enoch Beavers M .D. [place] [facility] [address] [place] [address] Referral ID Status Reason Start Date Expiration Date Visits Requ ested Visits Authorized [id number] Closed 01/11/2021 01/11/2022 1 1 Scheduling Instructions Prior to simulation for consent Radiation Therapy (Routine) - Closed Specialty Diagnoses / Procedures Referred By Contact Refer red To Contact Diagnoses Primary Malignant Neoplasm Of Prostate (HCC) Enoch Beavers M.D. [facility] Procedures Management Visit [address] [place] [address] Referral ID Status Reason Start Date Expiration Date Visits Requ ested Visits Authorized [id number] Closed 01/11/2021 01/11/2022 4 4 Radiation Therapy (Routine) - Closed Specialty Diagnoses / Procedures Referred By Contact Refer red To Contact Diagnoses Primary Malignant Neoplasm Of Prostate (HCC) Enoch Beavers M.D. [facility] Procedures Prior Auth Rad Tx [place] IMRT SIMPLE [address] [place] [address] Referral ID Status Reason Start Date Expiration Date Visits Requ ested Visits Authorized [id number] Closed 03/30/2021 01/11/2022 26 26 Radiation Therapy (Routine) - Closed Specialty Diagnoses / Procedures Referred By Contact Refer red To Contact Diagnoses Primary Malignant Neoplasm Of Prostate (HCC) Enoch Beavers M.D. [facility] Procedures Initial Rad Onc Treatment Planning CT Simulation [address] [place] [address] Referral ID Status Reason Start Date Expiration Date Visits Requ ested Visits Authorized [id number] Closed 01/11/2021 01/11/2022 1 1 Reason for Visit Appointment Request (Routine) - Closed Specialty Diagnoses / Procedures Referred By Contact Refer red To Contact Radiation Oncology Diagnoses Primary Malignant Neoplasm Of Prostate (HCC) Referral ID Status Reason Start Date Expiration Date Visits Requ ested Visits Authorized [id number] Closed 12/28/2020 12/28/2021 1 1 Encounter Details Date Type Department Care Team Description 01/11/2021 - Hospital Encounter Department of Ruthann, Primary Malignant 01/12/2021 Radiation Oncology Enoch Hamilton M.D. Neoplasm Of Prostate in [facility] [address] [facility] (HCC) (Primary Dx) [place], [place] [address] [facility] [address] [place], [place] [phone] (Work) [phone] Social History Tobacco Use Types Packs/Day Years [...] left mid of the prostate demonstrated adenocarcinoma, [place] 4+3=7, involving 25% of the length of the core, perineural invasion not seen. Pathology of the left apex of the prostate demonstrated adenocarcinoma, [place] 3+3=6, involving 10% of the length of the core, perineural invasion not seen. Pathology of the right mid of the prostate demonstrated adenocarcinoma, [place] 3+4=7, involving 20% of the length of the core, perineural invasion not seen. Pathology of the right apex of the prostate demonstrated adenocarcinoma, [place] 3+4=7, involving 20% of the length of [...] interested in consultation with Radiation Oncology in [place]. Dr. Espino discussed that he would typically [...] shoulder joint SOCIAL HISTORY He lives in [place], [place]. He is to his , Kim. He has 3 children. He is a former smoker with a 30 pack-year history, quit in 1982. He has a history of alcohol abuse, quit in 1981. 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 FAMILY HISTORY Negative for prostate cancer. [...] surgery, radiotherapy, or observation (Bryanna et al, [facility], 2016) that showed that surgery and radiotherapy [...] Radiation in Prostate Cancer?? trial (IRB# [id number]). I did not discuss this with him [...] have a 4 month Eligard injection at [facility] in [place]. A PSA and testosterone level will be [...] M.D. 01/11/2021 9:53 PM CDT Radiation Oncology [facility] [address] [place], [place] [id number] documented in this encounter Plan of Treatment Upcoming Encounters Date Type Specialty Care Team Description 04/03/2022 Appointment Radiation Oncology Agustin Beavers M.D. [address] [place], [place] [phone] (Wo rk) Scheduled Orders Name Type Priority Associated Order [...] Treatment Planning CT Simulation (03/27/2021 3:09 PM BUSINESS ARCHITECT) Specimen (Source) Anatomical Location Collection Method / Collectio n Time Received Time / Laterality Volume Narrative [facility] - 03/27/2021 3:09 PM BUSINESS ARCHITECT Ruthie Colon, RTT ? 03/27/2021 ??3:10 PM [...]
[2022-03-30 14:53] LABS: PSA Diagnostic* 0.87 ng/mL (0.10-4.00)
== END 2022-03-30 12:36 | disposition home or self-care (01) ==
LOC: NPINS 12:35
PROVIDERS: PCP Family Medicine; Visit Provider Physician Assistant
DX: C61 Malignant neoplasm of prostate (principal)
CPT/HCPCS: 84153

== ENCOUNTER 2022-05-11 09:15 | Outpatient (CLI) | payer MEDICARE, SELFPAY ==
[2022-05-11 14:14] LABS: Vitamin B12* 323 pg/mL (243-894)
== END 2022-05-11 09:16 | disposition home or self-care (01) ==
LOC: FRMREF 09:49
PROVIDERS: PCP Family Medicine; Visit Provider Family Medicine
DX: E53.8 Deficiency of other specified B group vitamins (principal)
CPT/HCPCS: 82607

== ENCOUNTER 2023-03-26 15:18 | Outpatient (REF) | payer MEDICARE, SELFPAY | END 2023-03-26 15:19 | disposition home or self-care (01) | LOC: NPINS 15:18 | PROVIDERS: PCP Family Medicine; Visit Provider Physician Assistant | DX: C61 Malignant neoplasm of prostate (principal); E53.8 Deficiency of other specified B group vitamins; E11.9 Type 2 diabetes mellitus without complications; Z79.84 Long term (current) use of oral hypoglycemic drugs; I10 Essential (primary) hypertension | CPT/HCPCS: 80053; 80061; 82306; 82607; 84153 ==

== ENCOUNTER 2023-05-23 14:14 | Outpatient (CLI) | payer MEDICARE, SELFPAY ==
--- OUTSIDE RECORDS SUMMARY | 2023-05-23 14:40 | XMS_ITS ---
Author Name Unknown Organization [facility] Address [address] [place] [address] Care Team Providers Care Associate Financial Planner Name Role Phone Unavailable Unavailable Unavailable Surgery Details Not on file Complications Check Surgery Details section. Procedure Estimated Blood Loss Check Surgery Details section. Procedure Findings Check Surgery Details section. Procedure Specimens Taken Check Surgery Details section.
--- OUTSIDE RECORDS SUMMARY | 2023-05-23 14:40 | XMS_ITS ---
Author Name Unknown Organization [facility] Address [address] [place] [address] Care Team Providers Care Crater And Packer Name Role Phone Unavailable Primary Care Provider Unavailabl e Active Problems Problem Noted Date Diagnosed Date Primary Malignant Neoplasm Of Prostate Cancer Staging:Clinical stage from 10/04/2020:Stage IIC(cT2c, cN0, cM0, PSA: 12.2, Grade Group: 3) - Unsigned Current Oncology Plans No current plan information found. Past Plans No past plan information found. Radiation Treatments * Plan Last Treated On Elapsed Days Fractions Treated Prescribed Fraction Dose Prescribed Total Dose F1_Prostate 05/03/2021 28 20 of 20 300 cGy 6,000 c Gy Reference Point Last Treated On Elapsed Days Session Dose Total Dose [id number] 05/03/2021 28 300 cGy 6,000 cGy
--- OUTSIDE RECORDS SUMMARY | 2023-05-23 14:40 | XMS_ITS | Encounter Summary ---
Author Name Unknown Organization [facility] Address [address] [place] [address] Care Team Providers Care C2 Tactical Analysis Technician Name Role Phone Unavailable Primary Care Provider Unavailabl e Reason for Referral * Outpatient (Routine) - Authorized Specialty Diagnoses / Procedures Referred By Contac t Referred To Contact Radiation Oncology Nery Glynn APRN C.N.PGuy, D.N.P. [address] [place] [phone] Enoch Beavers M.D. [address] [place] [phone] Referral ID Status Reason Start Date Expiration Date V isits Requested Visits Authorized [id number] Authorized 04/02/2023 04/01/2026 1 1 Scheduling Instructions After PSA completed via mail-in kit LLIGENCE CHIEF * Outpatient (Routine) - Closed Specialty Diagnoses / Procedures Referred By Contac t Referred To Contact Radiation Oncology Zahraa Duong P.A.-Felix., M.S. [address] [place] [phone] [facility] Referral ID Status Reason Start Date Expiration Date Visits Re quested Visits Authorized [id number] Closed 04/03/2022 04/02/2025 1 1 Scheduling Instructions PSA a few days prior at [facility] LLIGENCE CHIEF Reason for Visit * Outpatient (Routine) - Closed Specialty Diagnoses / Procedures Referred By Marie montgomery Referred To Contact Radiation Oncology Zahraa Duong P.A.-C., M.S. [address] [place] [address] [facility] Region Referral ID Status Reason Start Date Expiration Date Visits Re quested Visits Authorized [id number] Closed 04/03/2022 04/02/2025 1 1 Encounter Details Date Type Department Care Team (Latest Contact Info) Description 04/02/2023 3:01 PM INTELLIGENCE CHIEF - 04/07/2023 8:05 PM INTELLIGENCE CHIEF Hospital Encounter Department of Radiation Oncology in [place], [place] [address] [place] [phone] Enoch Beavers M.D. [address] [place] [phone] Primary Malignant Neoplasm Of Prostate (HCC) (Primary Dx) Social History Tobacco Use Types Packs/Day Years Used Date Smoking Tobacco: Former Cigarettes Smokeless Tobacco: Never Nutrition Answer Date Recorded Nutrition: EVOO Fat Source Unknown 12/28 Nutrition: Servings of Fruits/Vegetables per Day Not on file 12/28/2020 Dental Answer Date Recorded Dental: Regular Dentist Unknown 12/29/19 21 Sex and Gender Information Value Date Recorded Sex Assigned at Not on file Gender Identity Not on file Sexual Orientation Not on file documented as of this encounter Last Filed Vital Signs Vital Sign Reading Time Taken Comments Blood Pressure 148/65 04/02/2023 3:18 PM INTELLIGENCE CHIEF Pulse 70 04/02/2023 3:18 PM INTELLIGENCE CHIEF Temperature 36.6 ??C (97.8 ??F) 04/02/2023 3:18 PM CS T Respiratory Rate - - Oxygen Saturation - - Inhaled Oxygen Concentration - - Weight 101 kg (223 lb 8.7 oz) 04/02/2023 3:18 PM INTELLIGENCE CHIEF Height - - Body Mass Index 32.08 01/11/2021 3:00 PM CDT documented in this encounter Medications at Time of Discharge Medication Sig Dispensed Refills Start Date End Date aspirin [address] tablet Take 81 mg by mouth. 0 3 coenzyme Q10 (CO Q-10) 10 mg capsule Take 10 mg by mouth. 0 metFORMIN XR (GLUCOPHAGE-XR) 500 mg 24 hr tablet metformin ER 500 mg tablet,extended release 24 hr TAKE 1 TABLET BY MOUTH TWICE A DAY . FOLLOWUP IN 2020. 0 07/13/2020 multivitamin tablet Take 1 tablet by mouth daily. 0 pantoprazole (PROTONIX) 40 mg EC tablet pantoprazole 40 mg tablet,delayed release TAKE 1 TABLET BY MOUTH DAILY. 0 05/12/2012 rosuvastatin (CRESTOR) 10 mg tablet Take 10 mg by mouth daily. 0 valsartan-hydroCHLOROth iazide (DIOVAN-HCT) 80-12.5 mg per tablet valsartan 80 mg-hydrochlorothiazide 12.5 mg tablet TAKE 1 TABLET BY MOUTH EVERY DAY 0 acetaminophen (TYLENOL 8 HR) 650 mg ER tablet Take 650 mg by mouth every morning. 0 betamethasone dipropionate, augmented, (DIPROLENE) 0.05 % cream 0 03/01/2021 documented as of this encounter Progress Notes * Nery Glynn APRN, C.N.P., D.N.P. - 04/02/2023 3:30 PM CST SUBJECTIVE DIAGNOSIS 1. Primary Malignant Neoplasm Of Prostate (HCC) SUPERVISED BY: Enoch Beavers MD HISTORY OF PRESENT ILLNESS Mr. Rudy Tejada is a 83 y.o. male with adenocarcinoma of the prostate. He completed IMRT to the prostate and proximal seminal vesicles on May 03, 2021. He returns for 2 year follow-up. His oncologic history is as follows: 1. April 06, 2019: PSA 4.89 ng/mL 2. January 06, 2020: PSA 5.91 ng/mL 3. July 28, 2020: PSA 7.41 ng/mL 4. August 31, 2020: Consultation with Dr. Josiah Joshi where digital rectal examination demonstrateda 20 mL prostate that was asymmetric with firmness to the right lateral lobe. Recommended repeatinga PSA. Plan for biopsy. 5. August 31, 2020: PSA 12.24 ng/mL 6. October 04, 2020: Prostate biopsy was performed by Dr. Joshi. Rectal exam was asymmetric. Twelve biopsies were performed. Pathology of the left lateral base of the prostate demonstrated adenocarcinoma, Alcon 3+4=7, involving 40% of the length of the core, perineural invasion not seen. Pathology ofthe left lateral apex of the prostate demonstrated adenocarcinoma, Alcon 3+3=6, discontinuously involving 40% of the length of the core, perineural invasion not seen. Pathology of the left base of the prostate demonstrated adenocarcinoma, [place] 3+4=7, involving 90% of the length of the core, perineural invasion not seen. Pathology of the left mid of the prostate demonstrated adenocarcinoma, [place] 4+3=7, involving 25% of the length of the core, perineural invasion not seen. Pathology of the left apex of the prostate demonstrated adenocarcinoma, Alcon 3+3=6, involving 10% of the length of the core, perineural invasion not seen. Pathology of the right mid of the prostate demonstrated adenocarcinoma, [place] 3+4=7, involving 20% of the length of the core, perineural invasion not seen.Pathology of the right apex of the prostate demonstrated adenocarcinoma, Alcon 3+4=7, involving 20% of the length of the core, perineural invasion not seen. Pathology of the right lateral mid of the prostate demonstrated adenocarcinoma, [place] 3+4=7, involving 40% of the length of the core, perineural invasion present. Pathology of the left lateral mid of the prostate demonstrated atypical small acinar proliferation, highly suspicious for malignancy. Pathology of the right base and right lateral base of the prostate demonstrated benign prostatic tissue. 7. November 10, 2020: Nuclear medicine whole-body bone scan demonstrated prominent activity identified in the region of the right shoulder. Areas of [...] interested in consultation with Radiation Oncology in [place]. Dr. Espino discussed that he would typically advise 6 months of concurrent androgen deprivation therapy and the patient was given his business card to set up an Eligard injection if he decides to proceed with radiation. 10. January 11, 2021: Dr. Beavers saw the patient in consultation and recommended hypofractionated intensity modulated radiotherapy with a 4 month course of neoadjuvant and concurrent androgen deprivation therapy. 11. January 16, 2021: PSA 11.95 ng/mL. Testosterone 150 ng/dL. Follow-up visit with Dr. Hughes. Patient received a Lupron 30 mg injection and started bicalutamide 50 mg daily for 3 weeks. 12. April 05, 2021 through May 03, 2021: Intensity modulated radiation therapy to the prostate and proximal seminal vesicles to a dose of 6000 cGy in 20 fractions. 13. July 24, 2021: PSA 1.12 ng/mL. Testosterone, total 162 ng/dL. 14. October 27, 2021: PSA 0.82 ng/mL 15. March 30, 2022: PSA 0.87 ng/mL 16. September 24, 2022: PSA 0.56 ng/mL 17. March 26, 2023: PSA 0.5 ng/mL INTERVAL HISTORY The patient was seen and examined today with Dr. Beavers. The patient reports doing well overall. He reports good energy. He reports stable urination. He does experience urinary frequency. He also feels like he does not always empty his bladder fully. He reports minimal dribbling of urine if he is unable to get to the bathroom in time. He does not wear pads at this time. He reports this happens maybe once a day. He denies any hematuria or dysuria. He reports nocturia x2-3. He reports stable soft bowel movements without blood or pain. He reports going approximately twice daily. He denies any concerns with constipation. He has been experiencing issueswith neuropathy in his feet lately that he has been working with a chiropractor. He has just started working with them so has not seen any improvement yet. He has also been experiencing some memory changes over the last couple of months. He is noting that he is more forgetful. He denies new or persistent bone pain. His ECOG performance status is 1. AUA SYMPTOM INDEX: 01/11/21: 24 (4, 4, 3, 4, 4, 2, 3) 03/27/21: 27 (4, 4, 4, 4, 4, 4, 3) 08/04/21: 14 (2, 2, 2, 2, 2, 1, 3) 04/03/22: 15 (2, 2, 2, 2, 2, 2, 3) 04/02/23: 18 (5, 3, 2, 4, 1, 1, 3) IIEF-5 QUESTIONNAIRE: 01/11/21: 8 (2, 2, 1, 1, 2) moderate erectile dysfunction 03/27/21: 5 (1, 1, 1, 1, 1) severe erectile dysfunction 08/04/21: 6 (2, 1, 1, 1, 1) severe erectile dysfunction 04/03/22: 5 (1, 1, 1, 1, 1) severe erectile dysfunction 04/02/23: 5 (1, 1, 1, 1, 1) - severe erectile dysfunction REVIEW OF SYSTEMS Review of systems was negative except as documented above. PATIENT REPORTED SYMPTOM SCREEN FATIGUE (Scale: 0 = no fatigue; 10 = worst fatigue you can imagine): 5 PAIN (Scale: 0 = no pain; 10 = worst pain you can imagine): 4 OVERALL QUALITY OF LIFE (Scale: 0 = as bad as can be; 10 = as good as can be): 6 OBJECTIVE BP 148/65 (BP Location: Right arm, Patient Position: Sitting, Cuff Size: Regular) Pulse 70 Temp36.6 ??C (Temporal) Wt 101 kg BMI 32.08 kg/m?? PHYSICAL EXAM General: Alert and oriented [...] 05, 2021; completed on May 03, 2021 It was a pleasure to meet with Rudy today. He has recovered well overall following radiation treatment. He is not experiencing any long-term side effects related to radiation treatment at this time.We reviewed his most recent PSA results of 0.5 ng/mL and discussed what this means in relation to his prostate cancer. We discussed that his memory issues could be a possible late side effect from his hormone therapy but it is difficult to know exactly. We encouraged him to set up a follow up with his primary care provider, Dr. Cervantes, for further evaluation. We will have him complete a PSA in 6 months via mail-in kit. He will be contacted with these results. We will schedule a return visit here in 1 year with a PSA drawn a few days prior via mail-in kit,on the 3 year anniversary of his radiation treatment. Patient seen in collaboration with Dr. Beavers, please review his attestation for additional information. I discussed the importance of contacting our team if blood persists over multiple days with urination and/or bowel movements or if he is noticing any clots with urination and/or bowel movements. I also discussed the importance of informing us if persistent bone pain is present over 1-2 months without relief. He will contact us with quest ions or concerns. He verbally expressed his understanding of the plan. EDUCATION Ready to learn, no apparent learning barriers were identified; learning preferences include listening. Explained diagnosis and treatment plan; patient expressed understanding of the content. I personally spent 25 minutes in care of the patient today. Time includes both non face to face andface to face patient care. Signed by: Nery Glynn APRN, C.N.P., D.N.P. 04/02/2023 3:50 PM INTELLIGENCE CHIEF [facility] [address] [place] [address] LLIGENCE CHIEF Associated attestation - Enoch Beavers M.D. - 04/07/2023 8:01 PM INTELLIGENCE CHIEF I saw and evaluated the patient and participated in the kelley portions of the service. I reviewed thedocumentation of Nery Glynn C.N.P. and agree with the findings and plan. The patient appearswell on exam. He completed IMRT to the prostate and proximal seminal vesicles on May 03, 2021.He is doing well now almost 2 years out from treatment completion. His PSA is 0.5 ng/mL. We will rep eat a PSA in 6 months at the [facility] in [place] and contact him with theresus. He will then have another PSA in [address] and we will see him back in follow-up at that time. He verbalized satisfaction with this plan. I have spent 10 minutes caring for this patient including [id number] and apy-rhzc-ft-face time. Signed by: Enoch Beavers M.D. 04/07/23 8:01 PM INTELLIGENCE CHIEF [facility] [place] documented in this encounter Miscellaneous Notes * Addendum Note - Siri Betancourt C.NChica - 04/02/2023 3:30 PM CSTEncounter addended by: Siri Betancourt C.NChica on: 04/08/2023 7:20 AM Actions taken: Letter saved LLIGENCE CHIEF documented in this encounter Plan of Treatment Scheduled Orders Name Type Priority Associated Diagnoses Orde r Schedule PSA (Prostate-Specific Antigen), Diagnostic Lab Routine Primary Malignant Neoplasm Of Prostate (HCC) Expected: 10/01/2023 (Approximate), Expires: 07/03/2024 PSA (Prostate-Specific Antigen), Diagnostic Lab Routine Primary Malignant Neoplasm Of Prostate (HCC) Expected: 03/26/2024 (Approximate), Expires: 07/03/2024 Scheduled Referrals Name Type Priority Associated Diagnoses Order Schedule Radiation Oncology office visit (clinic) Outpatient Referral Routine Once for 1 Occurrences starting 04/02/2023 until 04/02/2023 Radiation Oncology office visit (clinic) Outpatient Referral Routine Expected: (Approximate), Expires: 07/03/2024 documented as of this encounter Visit Diagnoses Diagnosis Primary Malignant Neoplasm Of Prostate (HCC)- Primary documented in this encounter
--- OUTSIDE RECORDS SUMMARY | 2023-05-23 14:40 | XMS_ITS | Data Portability ---
Author Name Unknown Address [address] [place] [address] Phone [phone] Organization [facility] Address [address] [place] [address] Care Team Providers Care Utility Maintenance Worker Name Role Phone ADAM ALMA Primary Care Provider Assessment Encounter Date Assessment Date Assessment LastModified by Organization Details LastModified Time 10/31/2020 10/31/2020 Of note a total of 40 minutes was spent: preparing to see the patient by reviewing records, images, and laboratory data; obtaining/revie wing separately obtained history; performing physical examination, counseling and educating patient/family/ caregiver; ordering appropriate medications, labs, imaging or procedures; documenting the clinical encounter; and coordination of care. Not available 10/31/2020 12:55:10 Plan of Treatment Reminders Order Date Submit Date Provider Last Modified By Organization Details Last Modified Time Details Appointments None recorded. Lab None recorded. Referral None recorded. Procedures None recorded. Surgeries None recorded. Imaging NM, bone scan, whole body [address] Radiology Department, [address] [place], [address], 16:45:56 CT, abdomen + pelvis, w/ contrast [address] Radiology Department, [address] [place], [address], 16:45:56 Medication Orders ceftriaxone 1 gram solution for injection 2020 Ghada miller Not available 17:12:08 Patient TargetsNo targets recorded. Patient Instructions Encounter Date Encounter Id Patient Instructions Last Modified By Organization Details Last Modified Time 10/31/2020 Prostate Cancer talk I had a long discussion (total 30 minute consultation was spent in direct counseling) regarding the diagnosis of prostate cancer and its treatment options. I told him that prostate cancer is the most common cancer in men in the [place] and that with PSA screening and emerging public awareness of the disease, prostate cancer is being diagnosed with greater frequency and fortunately at an earlier stage. We briefly discussed the controversies regarding PSA screening for prostate cancer. We discussed the treatment options for localized disease, reviewing the potential complications and advantages of each therapeutic modality. I mentioned that for some men, watchful waiting or active surveillance may be an appropriate option. Prostate cancer can sometimes behave in a relatively indolent manner, and for those who have other comorbidities or advanced age, simply following the patient and reserving treatment for clinical symptoms may be the best option. Unfortunately, we do not know which cancers will behave in this manner and which ones will be more aggressive. Obviously there is a risk of spread of the cancer and continued local growth if the cancer is not treated. I then discussed radiation therapy, both as external beam and interstitial brachytherapy. We talked about the potential side effects of radiation cystitis, radiation proctitis, impotence, fistula formation, and incontinence. I then talked about surgery, specifically radical prostatectomy. This can be performed either open or robotic-assisted laparoscopically, with similar outcomes. I told him that there is a risk of bleeding requiring blood transfusion (about 5-10%), infection, wound complications, rectal injury, DVT/PE, erectile dysfunction (20-70%), bladder neck contracture (3%) and incontinence (severe enough to require further therapy in 3-5%). The advantage of surgery is that we would be able to analyze the specimen and the regional lymph nodes, thereby knowing the true pathologic stage of the disease. This would allow us to better gauge his prognosis, and possibly guide decisions regarding adjuvant therapies such as radiation or hormone therapy. We also discussed some of the newer technologies, such as cryotherapy and proton beam therapy, though it is still too early to know what the long-term outcomes are for these treatments. I then discussed the surgery and the perioperative management. I believe that he would be an appropriate candidate for a robotic-assisted laparoscopic approach utilizing the [employer] robotic system. He would have a catheter in place for about 7-10 days. A drain will be placed and removed prior to his discharge from the hospital, typically in about 1-2 days. I warned the patient that it is common to have some incontinence immediately after the catheter is removed, but this usually quickly improves. Usually by about 6 months, nearly 80% of patients will have regained their continence, and nearly all patients by 1 year. Erectile function may take 1, even 2 years to improve, though this is variable. We talked about some of the treatments for erectile dysfunction, including oral therapies, injections, pump, and penile prosthetics. We also briefly touched upon management for persistent incontinence, should that be a problem, including pads, artificial sphincters, and injectable therapies. Postoperatively, I would continue to follow him at regular intervals with PSA? s and exams to ensure that the prostate cancer does not come back. I encouraged the patient to seek out other opinions and offered a consultation with a radiation oncologist. We discussed at length the treatment options for Ca, localized and otherwise. This included , hormonal tx, surgery by robot and more traditional options with open surgery. We also discussed brachytreatment for CAP. I outlined the risks of each therapy including the impact on cure, JANINA recurrence, ED, EjD and RADHA. I also discussed blood loss and strategies to replace it. Not available 10/31/2020 12:53:10 Reason for Referral Referring Physician: Reji Espino, Urology, Encounter Date: 12/27/2020 Results Created Date Observation Date Name Description Value Unit Range Abnormal Flag LastModifiedBy Organization Detail LastModifiedTime 11/22/1911/10/2020 CT, abdom en + pelvi s, w/ contr ast No observ ation record ed. [email or web address] [facility] Radiology Department [address] [place], [address], 11/25/2020 14:22:26 11/22/1911/10/2020 NM, bone scan, whole body No observ ation record ed. [email or web address] [facility] Radiology Department [address] [place], [address], 11/25/2020 14:18:32 Result Notes None recorded. Procedures Surgical History Date Name Laterality Status Provider Name and Address Organization Details Recorded Time Prostate Biopsy Procedure completed Josiah Joshi MD [address], [place], [address], [place] [facility] 10/04/2020 16:50:08 1 Us urine capacity measure completed Not Available [facility] 10/15/2019 13:04:37 0 Repair rotator cuff chronic completed Not Available [facility] 10/15/2019 13:04:37 Imaging Results Imaging Date Name Status LastModified by Organiz ation Details LastModified Time 11/10/2020 CT, abdomen + pelvis, w/ contrast completed [address] Radiology Department [address] [place], [address], 11/25/2020 14:22:26 11/10/2020 NM, bone scan, whole body completed [address] Radiology Department [address] [place], [address], 11/25/2020 14:18:32 Procedure Notes None recorded. Medical Equipment None Reported. Allergies No known drug allergies Medications Name Sig Start Date Stop Date Status Note LastModified by Organization Details LastModified Time valsartan 80 mg-hydrochl orothiazide 12.5 mg tablet TAKE 1 TABLET BY MOUTH EVERY DAY active Not Available Not Available No t Available ceftriaxone 1 gram solution for injection Take 1 g by injection route. 12/26 completed Not Available Not Available Not Available pantoprazol e 40 mg tablet,etienne yed release TAKE 1 TABLET BY MOUTH DAILY. active Not Available Not Available No t Available metformin ER 500 mg tablet,exte nded release 24 hr TAKE 1 TABLET BY MOUTH TWICE A DAY . FOLLOWUP IN 2020. active Not Available Not Available No t Available Asprin Ec Low Dose 81 mg tablet,etienne yed release Take 1 tablet every day by oral route. active Not Available Not Available No t Available rosuvastati n 10 mg tablet TAKE 1 TABLET BY MOUTH DAILY. active Not Available Not Available No t Available albuterol sulf 90 mcg/actuati on breath activated powder inhaler,sen sor Inhale 2 puffs every 4 hours by inhalatio n route. active Not Available Not Available No t Available Vitals Date Recorded Body height Body mass index (BMI) Body weight Provider Name and Address Organization Details Last Updated DateTime 10/04/2020 177.8 cm 32.3 kg/m2 676104.28 g Farideh Michi [facility] 10/04/2020 16:03:35 Date Recorded Body height Body mass index (BMI) Body weight Provider Name and Address Organization Details Last Updated DateTime 10/31/2020 177.8 cm 32.3 kg/m2 062510.28 g Maida Gunderson [facility] 10/31/2020 12:27:53 Date Recorded Body height Body mass index (BMI) Body weight Provider Name and Address Organization Details Last Updated DateTime 12/26/2020 177.8 cm 32.3 kg/m2 942028.28 g Whitley Perrin [facility] 12/26/2020 17:12:03 Social History Question Answer Notes LastModified by Organizat ion Details LastModified Time Tobacco Smoking Status Former Smoker QUIT: 3 Farideh Borden [facility] 10/04/2020 15:53:14 What Is Your Level Of Alcohol Consumption? None QUIT: 1981 Information not available 10/04/2020 How Much Tobacco Do You Chew? None Information not available 10/04/2020 Do You Or Have You Ever Used E-cigarettes Or Vape? Never Used Electronic Cigarettes Information not available 10/04/2020 When Did You Quit Smoking? 16+yearssincel fidelina Information not available 10/04/2020 Race White Information n ot available 10/15/2019 Marital Status Informati on not available 10/15/2019 What Was The Date Of Your Most Recent Tobacco Screening? 12/26/2020 paul Information not available 12/26/2020 Do You Or Have You Ever Used Smokeless Tobacco? Never Used Smokeless Tobacco Information not available 10/04/2020 How Much Tobacco Do You Smoke? 1 PPD Information not available 10/04/2020 How Many Years Have You Smoked Tobacco? 30 Information not available 10/04/2020 Sex: Male Functional Status None recorded. Mental Status None recorded. Family History Relationship Description Onset Age of this Age Resolved Age Notes Father Family history of ca rdiac disorder Notes:Heart disease:Father Medical History Condition Response Sexually Transmitted Infection N Diabetes N Other N Bleeding Disorder N High Blood Pressure Y Kidney Stones N High Cholesterol N GERD/Acid Reflux N Heart Disease N Cancer Y Lung Disease N Depression N Past Encounters Encounter ID Performer Location Encounter Start Date Encounter Closed Date Diagnosis/Indication [id number] Josiah Joshi MD _[place] [address] [place] [address] 10/04/2020 15:40:12 10/05/2020 14:02:08 Prostate specific antigen above reference range [id number] Josiah Joshi MD _[place] [address] [place] [address] 10/31/2020 12:26:00 11/02/2020 10:11:07 Prostate specific antigen above reference range Malignant tumor of prostate [id number] Reji Espino MD _[facility] [address] [place] [address] 12/26/2020 16:28:22 12/28/2020 12:28:28 Carcinoma of prostate Health Concerns Section Related Observation LastModified by Organization Detai ls LastModified Time None Recorded Concern Status LastModified by Organization Details LastModified Time None Recorded Advance Directives Directive None Recorded Payers Encounter Date Sequence Insurance Name Policy Number Policy Freeman Covered Member ID Freeman Member ID Guarantor Name 12/26/2020 1 [employer] (MEDICARE REPLACEMENT/A DVANTAGE - PPO) Rudy Tejada [id number] Rudy Tejada 10/31/2020 1 [employer] (MEDICARE REPLACEMENT/A DVANTAGE - PPO) Rudy Tejada [id number] Rudy Tejada 10/04/2020 1 [employer] (MEDICARE REPLACEMENT/A DVANTAGE - PPO) Rudy Tejada [id number] Rudy Tejada Notes Date Note Type Note Provider Name and Address Organization Details Recorded Time 10/04/2020 text/html HPI Notes: 80 ye ar old male who follows with me in [place] for elevated PSA (most recently 12.48 ng/mL) Josiah Joshi MD [address] [place] [address],[address], [place], [address], [facility] 10/04/2020 16:51:04 10/31/2020 text/html HPI Notes: This visit was conducted by telephone due to the COVID-19 crisis. Prior to conducting our telephone visit, the patient was apprised of the risks, benefits and alternatives to telephone visits including but not limited to poor audio quality, interrupted visits due to technological limitations, delays in medical evaluation and treatment due to deficiencies or failures of equipment, failure of security protocols resulting in a breach of privacy of personal medical information and a lack of access to complete medical records resulting in not fully informed decisions. Also, because of the COVID-19 pandemic, it was not possible for the patient to sign the privacy regulations, HIPAA release and assignment of benefits forms. The patient was given the opportunity to ask questions about these policies and gave verbal acknowledgement and approval of these policies as well as to hold this meeting by telephone. Lastly, the patient agreed to allowing their medication history to be pulled from a national pharmacy database to facilitate and coordinate their care. 80 year old male who follows with ri in [place] for elevated PSA (most recently 12.48 ng/mL) now s/p prostate biopsy, here to review pathology report. Patient's joins us on the call. Josiah Joshi MD [address] [place] [address],[address], [address], [facility] 10/31/2020 12:55:53 12/26/2020 text/html HPI Notes: 80-year-old patient of Dr. Dm Joshi referred to ri for prostate cancer counseling. He was found to have a PSA of 12.48 and underwent biopsy on 10/04/2020 showing Alcon grade 4+3 and [place] 3+4 prostate cancer in up to 90% of 9 of 12 cores. Abdominal and pelvic CT scan with contrast at [facility] from 11/10/2020 was reviewed and shows no evidence of metastatic disease. He also had a bone scan that date that was negative for metastasis. Prostate measures 34 cm?? by ultrasound. BMI is 34.2. Reji Espino MD [address] [place] [address],[address], [place], [address], [facility] 12/26/2020 18:37:05
--- OUTSIDE RECORDS SUMMARY | 2023-05-23 14:40 | XMS_ITS | Encounter Summary ---
Author Name Unknown Organization [facility] Address [address] [place] [address] Care Team Providers Care Architectural Engineering Teacher Name Role Phone Unavailable Primary Care Provider Unavailabl e Encounter Details Date Type Department Care Team (Latest Contact Info) Description 03/27/2023 9:30 AM COMMERCIAL COLLECTIONS DRIVER Clinical Communication Virtual Review in [place], [place] [address] [place], [place] [id number] Social History Tobacco Use Types Packs/Day Years Used Date Smoking Tobacco: Former Cigarettes Smokeless Tobacco: Never Tobacco Cessation:Counseling Given: Not Answered Nutrition Answer Date Recorded Nutrition: EVOO Fat Source Unknown 12/28 Nutrition: Servings of Fruits/Vegetables per Day Not on file 12/28/2020 Dental Answer Date Recorded Dental: Regular Dentist Unknown 12/29/19 21 Sex and Gender Information Value Date Recorded Sex Assigned at Not on file Gender Identity Not on file Sexual Orientation Not on file documented as of this encounter Plan of Treatment Not on file documented as of this encounter Visit Diagnoses Not on filedocumented in this encounter
--- OUTSIDE RECORDS SUMMARY | 2023-05-23 14:40 | XMS_ITS | Encounter Summary ---
Author Name Unknown Organization [facility] Address [address] [place] [address] Care Team Providers Care Service Attendant Name Role Phone Unavailable Primary Care Provider Unavailabl e Encounter Details Date Type Department Care Team (Late st Contact Info) Description 09/27/2022 Clinical Communication Department of Radiation Oncology in [place], [place] [address] [place] [address] [address] Brown R.N. [address] [place] [address] Social History Tobacco Use Types Packs/Day Years Used Date Smoking Tobacco: Never Assessed Nutrition Answer Date Recorded Nutrition: EVOO Fat Source Unknown 12/28 Nutrition: Servings of Fruits/Vegetables per Day Not on file 12/28/2020 Dental Answer Date Recorded Dental: Regular Dentist Unknown 12/29/19 21 Sex and Gender Information Value Date Recorded Sex Assigned at Not on file Gender Identity Not on file Sexual Orientation Not on file documented as of this encounter Miscellaneous Notes * Telephone Encounter - Court Brown, R.N. - 09/27/2022 1:07 PM CDT Test Result Information: You recently had a prostate-specific antigen (PSA) test done on September 24, 2022. Please note the results below: PSA: 0.56 ng/mL This represents a low, stable PSA level. The plan is to check your next PSA level in March 2023 [facility] in [place] . Your next office visit with Dr. Beavers will be in March 2023. We hope that you are doing well and look forward to continuing to participate in your medical care.We will continue monitoring your PSA typically every 6 months. If there is a change in your PSA level that requires more additional information or more frequent monitoring we will let you know at that time. Please contact our office if you have additional questions or concerns, if you develop any bl eeding in your urination or bowels, or have persistent bone pain for at least 1- 2 months without improvement. To best contact our office please call [phone] or reach out via the Patient Portal. Disposition/Recommendation: self-care - appropriate at this time, patient encouraged to call back with questions Information/Education: patient/caller able to teach back Caller agreeable to plan of care: yes documented in this encounter Plan of Treatment Not on file documented as of this encounter Visit Diagnoses Not on filedocumented in this encounter
--- OUTSIDE RECORDS SUMMARY | 2023-05-23 14:40 | XMS_ITS | Referral Summary ---
Author Name Unknown Organization [facility] Address [address] [place] [address] Care Team Providers Care Hydroelectric Machinery Mechanic Helper Name Role Phone Unavailable Primary Care Provider Unavailabl e Source Comments Patient records contain information from all sites at [facility]. For routine questions regarding patient records, call [phone] during business hours, M-F 8:00 AM - 5:00 PM Central Time. Record requests for emergency care only can be directed to [phone] at any time.[facility] Encounters Date Type Department Care Team Description 04/02/2023 3:01 PM SAFETY ADVISOR - 04/07/2023 8:05 PM [facility] Hospital Encounter Department of Radiation Oncology in [place], [place] [address] [place] [address] Enoch Beavers M.D. Primary Malignant Neoplasm Of Prostate (HCC) (Primary Dx) 03/27/2023 9:30 AM [facility] Clinical Communication Virtual Review in [place], [place] [address] [place], [place] [address] from Last 3 Months Allergies Active Allergy Reactions Criticality Noted Date Comments Cat Dander Cough Low 01/11/2021 Medications Medication Sig Dispensed Refills Start Date End Date Status metFORMIN XR (GLUCOPHAGE-XR) 500 mg 24 hr tablet metformin ER 500 mg tablet,extended release 24 hr TAKE 1 TABLET BY MOUTH TWICE A DAY . FOLLOWUP IN 2020. 0 07/13/2020 Active multivitamin tablet Take 1 tablet by mouth daily. 0 Active pantoprazole (PROTONIX) 40 mg EC tablet pantoprazole 40 mg tablet,delayed release TAKE 1 TABLET BY MOUTH DAILY. 0 05/12/2012 Active coenzyme Q10 (CO Q-10) 10 mg capsule Take 10 mg by mouth. 0 Acti ve valsartan-hydroCHL OROthiazide (DIOVAN-HCT) 80-12.5 mg per tablet valsartan 80 mg-hydrochlorothiazi de 12.5 mg tablet TAKE 1 TABLET BY MOUTH EVERY DAY 0 Active leuprolide (ELIGARD 4 MONTH) 30 mg injection Inject 30 mg under the skin once for 1 dose. 1 each 0 01/11/2021 Active bicalutamide (CASODEX) 50 mg tablet Take 1 tablet (50 mg total) by mouth daily for 21 days. Take at the same time everyday. Take with or without food. Start AFTER Eligard injection on the same day. 21 tablet 0 01/11/2021 Active rosuvastatin (CRESTOR) 10 mg tablet Take 10 mg by mouth daily. 0 Active acetaminophen (TYLENOL 8 HR) 650 mg ER tablet Take 650 mg by mouth every morning. 0 Active aspirin [address] tablet Take 81 mg by mouth. 0 05/12/2012 Acti ve betamethasone dipropionate, augmented, (DIPROLENE) 0.05 % cream 0 03/01/2021 Active Active Problems Problem Noted Date Diagnosed Date Primary Malignant Neoplasm Of Prostate Cancer Staging:Clinical stage from 10/04/2020:Stage IIC(cT2c, cN0, cM0, PSA: 12.2, Grade Group: 3) - Unsigned Social History Tobacco Use Types Packs/Day Years Used Date Smoking Tobacco: Former Cigarettes Smokeless Tobacco: Never Tobacco Cessation:Counseling Given: Not Answered Nutrition Answer Date Recorded Nutrition: EVOO Fat Source Unknown 12/28 Nutrition: Servings of Fruits/Vegetables per Day Not on file 12/28/2020 Dental Answer Date Recorded Dental: Regular Dentist Unknown 12/29/19 Sex and Gender Information Value Date Recorded Sex Assigned at Not on file Gender Identity Not on file Sexual Orientation Not on file Last Filed Vital Signs Vital Sign Reading Time Taken Comments Blood Pressure 148/65 04/02/2023 3:18 PM SAFETY ADVISOR Pulse 70 04/02/2023 3:18 PM SAFETY ADVISOR Temperature 36.6 ??C (97.8 ??F) 04/02/2023 3:18 PM CS T Respiratory Rate - - Oxygen Saturation - - Inhaled Oxygen Concentration - - Weight 101 kg (223 lb 8.7 oz) 04/02/2023 3:18 PM SAFETY ADVISOR Height 177.8 cm (5' 10) 01/11/2021 3:00 PM CDT Body Mass Index 32.08 01/11/2021 3:00 PM CDT Plan of Treatment Not on file
--- OUTSIDE RECORDS SUMMARY | 2023-05-23 14:40 | XMS_ITS | Clinical Summary ---
Author Name Unknown Organization [facility] Address [address] [place] [address] Care Team Providers Care Poultry Debeaker Name Role Phone Unavailable Primary Care Provider Unavailabl e Source Comments Patient records contain information from all sites at [facility]. For routine questions regarding patient records, call [phone] during business hours, M-F 8:00 AM - 5:00 PM Central Time. Record requests for emergency care only can be directed to [phone] at any time.[facility] Allergies Active Allergy Reactions Criticality Noted Date [...] Group: 3) - Unsigned Encounters Date Type Department Care Team Description 04/02/2023 3:01 PM DRAFTING INSTRUCTOR - 04/07/2023 8:05 PM DRAFTING INSTRUCTOR Hospital Encounter Department of Radiation Oncology in [address] [phone] Enoch Beavers M.D. Primary Malignant Neoplasm Of Prostate (HCC) (Primary Dx) 03/27/2023 9:30 AM DRAFTING INSTRUCTOR Clinical Communication Virtual Review in [address] [address] from Last 3 Months Social History Tobacco [...] Comments Blood Pressure 148/65 04/02/2023 3:18 PM DRAFTING INSTRUCTOR Pulse 70 04/02/2023 3:18 PM DRAFTING INSTRUCTOR Temperature 36.6 ??C (97.8 ??F) 04/02/2023 3:18 PM CS T Respiratory Rate - - Oxygen Saturation - - Inhaled Oxygen Concentration - - Weight 101 kg (223 lb 8.7 oz) 04/02/2023 3:18 PM DRAFTING INSTRUCTOR Height 177.8 cm (5' 10) 01/11/2021 3:00 PM CDT Body Mass Index 32.08 01/11/2021 3:00 PM CDT Plan of Treatment Health Maintenance Due Date Last Done Comments Creatinine Level (Kidney Function Test) 1940 Potassium Level 1941 Sodium Level 1941 Zoster Vaccines (1 of 2) 1960 DTaP,Tdap,and Td Vaccines (1 - Tdap) 04/17/2019 04/16/2019, 01/15/2007 Depression Screening (Annual PHQ-2) 05/06/2022 Fall Risk Screen (Annual) 05/06/2022 COVID-19 Vaccine (4 - 2022-2 4 season) 2023 03/31/2021, 07/09/2020, 06/18/2020 Influenza Vaccine (#1) 2023 Pneumococcal vaccine (65+ years) Completed 05/11/2020, 01/15/2007 HPV Vaccines Aged Out No longer eligi ble based on patient's age to complete this topic
--- OUTSIDE RECORDS SUMMARY | 2023-05-23 14:40 | XMS_ITS | Encounter Summary ---
Author Name Unknown Organization [facility] Address [address] [place] [id number] Care Team Providers Care Infusion Pharmacist Name Role Phone Unavailable Primary Care Provider Unavailabl e Encounter Details Date Type Department Care Team (Late st Contact Info) Description 01/10/2023 Clinical Communication Department of Radiation Oncology in [place], [place] [address] [place] [address] Enoch Beavers M.D. [address] [place] [address] Social History Tobacco Use Types Packs/Day Years [...]
--- OUTSIDE RECORDS SUMMARY | 2023-05-23 14:40 | XMS_ITS | Encounter Summary ---
Author Name Unknown Organization [facility] Address [address] [place] [address] Care Team Providers Care Centrifugal Spinner Name Role Phone Unavailable Primary Care Provider Unavailabl e Encounter Details Date Type Department Care Team (Late st Contact Info) Description 01/10/2023 Clinical Communication Department of Radiation Oncology in [place], [place] [address] [place] [address] Enoch Beavers M.D. [address] [place] [address] Social History Tobacco Use Types Packs/Day Years [...]
--- OUTSIDE RECORDS SUMMARY | 2023-05-23 14:41 | XMS_ITS | Clinical Summary ---
Author Name Unknown Organization [facility] Address [place], [place] [address] Care Team Providers Care Physical Therapist Center Manager Name Role Phone Nonstaff, Doctor Primary Care Provider Unavailab le Allergies No known active allergies Medications Medication Sig Dispensed Refills Start Date End Date Status valsartan-hydrochlo rothiazide, 80-12.5 mg, (DIOVAN HCT) 80-12.5 mg tablet Take 1 tablet by mouth once daily. 0 Active multivitamin (MVI) tablet Take 1 tablet by mouth once daily. 0 Active Coenzyme Q10 10 mg cap Take 10 mg by mouth once daily. 0 Active cholecalciferol (VITAMIN D) 1,000 unit tablet Take 5,000 Units by mouth once daily. 0 Active pantoprazole (PROTONIX) 40 mg tablet Take 1 tablet by mouth once daily. 90 tablet 3 05/12/2012 Active aspirin 81 mg tablet Take 1 tablet by mouth once daily with a meal. 0 05/12/2012 Active metFORMIN (GLUCOPHAGE XR) 500 mg Extended-Release tablet TAKE 1 TAB BY MOUTH TWICE A DAY 0 07/13/2020 Active rosuvastatin (CRESTOR) 10 mg tablet Take 10 mg by mouth once daily. 0 07/14/2020 Active bicalutamide (CASODEX) 50 mg tablet PLEASE SEE ATTACHED FOR DETAILED DIRECTIONS 0 01/12/2021 Active Active Problems Problem Noted Date Diagnosed Date CVA (cerebral infarction) 05/12/2012 Numbness 05/11/2012 Leg weakness 05/11/2012 HTN (hypertension) 05/11/2012 BPH (benign prostatic hypertrophy) 05/11/2012 Overview: Follow with [facility] JANINA (obstructive sleep apnea) 05/11/2012 Overview: Has cpap, doesn't use Other and unspecified hyperlipidemia 05/11/2012 ACP (advance care planning) 05/11/2012 Overview: Patient has identified Health Care Agent(s): No Add Health Care Agents: No Patient has Advance Care Plan Documents (Health Care Directive, POLST): No, . Patient has identified Specific Treatment Preferences: Yes Specific Treatment Preferences: a.) Code Status: CPR/Attempt Resuscitation Cough 05/11/2012 Family History Medical History Relation Name Comments Other Sister zhen aneurysm Relation Name Status Comments Sister Social History Tobacco Use Types Packs/Day Years Used Date Smoking Tobacco: Former Cigarettes 1 30 0 [birth year]/06/1951 - 05/06/1982 Alcohol Use Standard Drinks/Week Comments Yes 0 (1 standard drink = 0.6 oz pure alcohol) occassional. Hx of alcohol abuse, quit in 1981, now occassional Sex and Gender Information Value Date Recorded Sex Assigned at Not on file Gender Identity Not on file Sexual Orientation Not on file Obstetrics History Last Filed Vital Signs Vital Sign Reading Time Taken Comments Blood Pressure 133/79 01/16/2021 11:21 AM CDT Pulse 79 01/16/2021 11:21 AM CDT Temperature 36.7 ??C (98 ??F) 05/12/2012 8:00 AM PANEL SEWER Respiratory Rate 16 05/12/2012 8:00 AM PANEL SEWER Oxygen Saturation 94% 01/16/2021 11:21 AM CDT Inhaled Oxygen Concentration - - Weight 108.6 kg (239 lb 8 oz) 01/16/2021 11:21 A M CDT Height 177.8 cm (5' 10) 05/11/2012 2:47 PM PANEL SEWER Body Mass Index 34.36 05/11/2012 2:47 PM PANEL SEWER Plan of Treatment Health Maintenance Due Date Last Done Comments Tdap 1952 Depression screening for age 12+ 1953 BMI (ht and wt on same day) for age 18+ 1959 Tetanus booster 1961 Zoster (shingles) series for age 50+ (1 of 2) 1991 Medicare Wellness for age 65+ 2006 Pneumococcal series for age 65+ (1 of 1 - PCV) 2006 COVID-19 vaccine series ( season) 2023 07/09/2020, 06/18/2020 Influenza for age 65+ 01/04/2023 Advance Directives Latest Code Status on File Code Status Date Activated Date Inactivated Comments Full Code 05/11/2012 6:11 PM 05/12/2012 1:45 PM Care Teams Physical Therapist Center Manager Relationship Specialty Start Date End Date Nonstaff, Doctor NON STAFF DOCTOR PCP - General 05/16/12
--- OUTSIDE RECORDS SUMMARY | 2023-05-23 14:41 | XMS_ITS | Encounter Summary ---
Author Name Unknown Organization [facility] Address [address] [place] [address] Care Team Providers Care Postal Inspector Name Role Phone Unavailable Primary Care Provider Unavailabl e Encounter Details Date Type Department Care Team (Late st Contact Info) Description 07/13/2022 Clinical Communication Department of Radiation Oncology in [place], [place] [address] [place] [address] Enoch Beavers M.D. [address] [place] [address] Social History Tobacco Use Types Packs/Day Years [...]
== END 2023-05-23 14:15 | disposition home or self-care (01) ==
PROVIDERS: PCP Family Medicine; Visit Provider Family Medicine
DX: Z00.00 Encounter for general adult medical examination without abnormal findings (principal); I10 Essential (primary) hypertension; E55.9 Vitamin D deficiency, unspecified; E53.8 Deficiency of other specified B group vitamins; R53.83 Other fatigue; E78.5 Hyperlipidemia, unspecified; R73.03 Prediabetes
CPT/HCPCS: 80053; 82043; 82306; 82570; 82607; 83735

== ENCOUNTER 2023-06-25 10:00 | Outpatient (RCR) | payer MEDICARE, SELFPAY ==
--- NOTE | 2023-06-06 12:26 | OT.OPGNE2 ---
OT Outpatient General/Neuro Eval OT Outpatient General/Neuro Eval* Start: 06/06/23 10:14 Freq: Status: Active Protocol: Document 06/06/23 10:15 GUICHO (Rec: 06/06/23 12:15 GUICHO [id number]) E-signed By Lisa Ayoub OTR/L, CLT OT Outpatient Evaluation Details Type Type Eval Complexity Low Insurance Information Insurance Information Insurance Information Medicare B Outpatient History/Precautions Current Condition Referring Provider Dr. Keiry Cervantes, DO Medical Diagnoses MCI: Mild Cognitive Impairment G31.84 Mild Cognitive impairment of uncertain or unknown etiology Treatment Diagnoses other symptoms and signs of cognitive functions and awareness, R41.89 Date of Onset Chronic Medical/Functional History Medical History Reviewed Yes Prior Level of Function/Mobility Medication List: Patient fills his own weekly med box Home Medications aspirin (Enteric Coated Aspirin) 81 mg PO QDAY cholecalciferol (vitamin D3) 5 ,000 units PO QDAY cinnamon bark (Cinnamon) 1,000 mg PO QDAY coenzyme Q10 10 mg PO QDAY metformin ER 500 mg PO BID multivitamin (Multiple Vitamins tablet) 1 tab PO QDAY pantoprazole 40 mg PO QDAY rosuvastatin 10 mg PO DAILY valsartan-hydrochlorothiazide 80-12.5 mg 1 tab PO QDAY Prior Medical History Prior Medical History Past Medical History B12 deficiency, E53.8 - Deficiency of other specified B group vitamins (ICD-10) Vitamin D deficiency (Acute), E55.9 - Vitamin D deficiency, unspecified (ICD-10) Neuropathy (Acute), G62.9 - Polyneuropathy, unspecified ( ICD-10) Fatigue (Acute), R53.83 - Other fatigue (ICD-10) Prostate cancer (Acute), C61 - Malignant neoplasm of prostate (ICD-10) Prediabetes (Acute), R73.03 - Prediabetes (ICD-10) JANINA on CPAP (Acute), G47.33 - Obstructive sleep apnea (adult ) (pediatric) (ICD-10) Hepatic cyst (Acute), K76.89 - Other specified diseases of liver (ICD-10) GERD (gastroesophageal reflux disease) (Acute), K21.9 - Gastro-esophageal reflux disease without esophagitis ( ICD-10) Fatty liver (Acute), K76.0 - Fatty (change of) liver, not elsewhere classified (ICD-10) Hypertension (Chronic), I10 - Essential (primary) hypertension (ICD-10) Hyperlipidemia (Chronic), E78. 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 He states that his and daughter are concerned about him driving because a few weeks ago he was in the vehicle and got lost. Referral for skilled OT was written by his PCP at annual apt on 05/23/23 with medical dx : MCI: Mild Cognitive Impairment & G31.84 Mild Cognitive impairment of uncertain or unknown etiology. He has a PMH significant for HTN, prediabetes, HLD, and prostate cancer. In addition, he has had difficulty with neuropathy, which PT thought might have contributed to his fall in 2021. Since 2022 patient has been going to the [facility] 1x/ week to work on balance. Patient has been losing weight over the past year without trying to (reports slight decline in appetite but states it's because I don't really do anything Next Provider Follow-up in 3-6months. It was recommended at his provider visit to monitor blood pressures at minimum 3x/week. *He told therapist he doesn't do this but has a portable battery-operated cuff at home. Per provider note on 05/23/23: Multiple differential diagnoses were considered for cognitive impairment. The life-threatening differential diagnosis considered include meningitis/encephalitis, bacteremia, subdural hematoma, CVA, SAH, and hypertensive encephalopathy. Other differential diagnoses include medication effect, hypoxia, electrolyte abnormalities, infectious disease, seizure, as well as other etiologies. The patient has no lateralizing deficits, is able to communicate clearly, and ambulate independently. He has stable VS. He has a capable and attentive family member who can call for assistance should new or worsening symptoms present. The work-up will continue outpatient unless new symptom or worsening is noted. Patient is a former smoker, ( 1ppd x 20yrs). The patient reports rare EtOH use, 2- 3drinks/month. The patient denies illicit substance use. 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 The patient has three children, one special needs. The patient lives with his , independently in [place]. Cognitive Assessments Performed Oriented Patient oriented Person,Place,Time,Situation Vision/Hearing Vision Tracking WNL Tracking Comments Patient does not wear eyeglasses Saccades WNL Near Point of Convergence WNL Vision Changes Light Sensitivity Vision Changes Comments Has not had a recent eye exam Hearing Hearing Comments Hearing is WNL, no hearing aids Balance Assessment Comments Balance Comments No reported falls in the past year but does have Neuropathy in both feet (patient does exercises that were given to him from the [facility] center daily as well as a step machine). 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 Patient reports that life is going well, he currently is going to the [facility] 1x/ week and does a daily HEP. He states that his and daughter are concerned about him driving because a few weeks ago he was in the vehicle and got lost. Referral for skilled OT was written by his PCP at annual apt on 05/23 with medical dx: MCI: Mild Cognitive Impairment & G31.84 Mild Cognitive impairment of uncertain or unknown etiology. He has a PMH significant for HTN, prediabetes, HLD, and prostate cancer. In addition, he has had difficulty with neuropathy, which PT thought might have contributed to his fall in 2021. Since 2022 patient has been going to the [facility] 1x/ week to work on balance. Patient has been losing weight over the past year without trying to (reports slight decline in appetite but states it's because I don't really do anything Next Provider Follow-up in 3-6months. It was recommended at his provider visit to monitor blood pressures at minimum 3x/week. *He told therapist he doesn't do this but has a portable battery-operated cuff at home. Occupational Therapy Treatment Plan - OP Potential Rehabilitation Potential Good Set Goals Goals Set with Patient Yes Goals Goals 1. The patient will actively engage in Cognitive & Visual assessments to determine level of functional problem solving and safety awareness. 2. The patient will complete assessments relative to driving skills in order to give safe driving recommendations to patient/ family and PCP. Treatment Plan Treatment Plan Evaluation,Therapeutic Activities,Self-Care/Home Management,Education, Neuromuscular Reeducation Expected Frequency 1-2x Week Expected Duration 8-10 Weeks Certification Certification Statement I Certify That: Therapy Services Provided, Therapy Plan Established, Therapy Plan Reviewed Certification Information Clinic ID # [id number] Initial Certification Date 06/06/23 Recertification Due Date 09/04/23 Provider Signature Shows Agreement With POC & Medical Necessity Physician Comment/Change Comment or Changes Physician NPI Number #
== END 2023-07-01 10:39 | disposition home or self-care (01) ==
PROVIDERS: PCP Family Medicine; Visit Provider Family Medicine
DX: G31.84 Mild cognitive impairment of uncertain or unknown etiology (principal); Z51.89 Encounter for other specified aftercare
CPT/HCPCS: 97110; 97112; 97165; 97535; X5282